=== PATIENT | female | born 1960 | race Caucasian/White ===

== ENCOUNTER 2019-05-21 22:33 | Inpatient (IN) | payer MEDICARE ==
[2019-05-22] MEDS ORDERED: ASPIRIN 325 MG TAB ONE (00:31)
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
[2019-05-22 00:41] LABS: Absolute Lymphocytes (CBC) 1.7 K/uL (0.7-4.9); Basophils % 0.4 % (0-1.3); Hematocrit 34.9 % (36.0-45.0); Lymphocytes % 16.4 % (15.3-44.8); MPV 8.5 fL (7.6-11.3); RBC Red Blood Cell Count 3.97 M/uL (3.86-4.86)
[2019-05-22 00:42] LABS: Protime INR 0.99
[2019-05-22 01:27] LABS: Urine Bacteria 20-50 /HPF (<20); Urine Culture Reflex Order REFLEXED; Urine RBC NONE SEEN /HPF (NONE SEEN)
[2019-05-22 01:52] LABS: ALT/SGPT 31 U/L (12-78); AST/SGOT 12 U/L (15-37); Albumin 3.8 g/dL (3.4-5.0); Alkaline Phosphatase 100 U/L (45-117); BUN Blood Urea Nitrogen 28 mg/dL (7-18); Bicarbonate 26 mmol/L (21-32); Bilirubin Direct 0.1 mg/dL (0-0.2); Bilirubin Total 0.4 mg/dL (0.2-1.0); Glucose Level 236 mg/dL (74-106); Magnesium 1.9 mg/dL (1.8-2.4); NT PRO-BNP 807 pg/mL (<125); Potassium 4.1 mmol/L (3.5-5.1); Sodium Level 139 mmol/L (136-145); Troponin (Emerg Dept Use Only) < 0.02 ng/mL (0.0-0.045)
[2019-05-22 04:36] LABS: Urine Blood TRACE (NEG); Urine Glucose NEGATIVE (NEG); Urine Protein NEGATIVE (NEG); Urine Specific Gravity 1.015 (1.005-1.030)
[2019-05-22] MEDS: NA CHLORIDE 0.9% 1,000 ML IV SCH ×3 (04:41→21:22)
[2019-05-22 05:47] VITALS: BMI 30.2
--- NOTE | 2019-05-22 08:01 | RAD REPORT ---
EXAM DESCRIPTION: Tarsha Single View05/21/2019 11:48 pm CLINICAL HISTORY: Stroke symptoms COMPARISON: none FINDINGS: The lungs appear clear of acute infiltrate. The heart appears borderline enlarged IMPRESSION: No acute abnormalities displayed
[2019-05-22] MEDS ORDERED: GLUCAGON 1 MG/VIAL IM PRN (09:50)
[2019-05-22] MEDS ORDERED: D50W 25 GM/50 ML SYRINGE/VIAL IV PRN (09:50)
--- NOTE | 2019-05-22 10:11 | RAD REPORT ---
EXAM DESCRIPTION: RAD - C Spine Ap/Lat - 05/22/2019 10:03 am CLINICAL HISTORY: Rule out metal FINDINGS: No fracture or dislocation is seen. Anterior fusion involves C5 and C6 Mild spondylosis A radiopaque foreign body is not visualized
--- NOTE | 2019-05-22 10:23 | RAD REPORT ---
EXAM DESCRIPTION: RAD - Sinuses Kauffman Only - 05/22/2019 10:12 am CLINICAL HISTORY: MRI clearance, rule out metallic foreign body COMPARISON: None. TECHNIQUE: PA and AP Kauffman views obtained FINDINGS: No metallic foreign bodies are present. Metal dental work is present not a contraindicatio n for MRI imaging. No acute finding in the paranasal sinuses. No acute bone finding. IMPRESSION: No metallic foreign bodies.
[2019-05-22] MEDS: INSULIN -REGULAR HUMAN 50 UNIT/0.5 ML ML SQ SCH ×3 (11:30→21:00)
[2019-05-22] MEDS: ASPIRIN EC 81 MG TAB PO SCH (12:00)
--- NOTE | 2019-05-22 12:10 | RAD REPORT ---
EXAM DESCRIPTION: MRI - MRA Head Wo Cont - 05/22/2019 11:47 am CLINICAL HISTORY: Right hand numbness COMPARISON: None. TECHNIQUE: Magnetic resonance angiogram was performed. 3D MIPS reconstruction performed FINDINGS: Short segment areas of narrowing involve the A2 segment of the left anterior cerebral gerry ry and proximal left middle cerebral artery. Internal cerebral, basilar and posterior cerebral arteries are unremarkable An aneurysm is not displayed. IMPRESSION: Short segment areas of narrowing involving the A2 segment of the left anterior cerebral artery, proximal left middle and proximal right middle cerebral arteries
--- NOTE | 2019-05-22 12:14 | RAD REPORT ---
EXAM DESCRIPTION: MRI - MRA Neck W/Wo Cont - 05/22/2019 11:47 am CLINICAL HISTORY: Right hand numbness COMPARISON: None. TECHNIQUE: Magnetic resonance angiogram of the neck was performed. 18 cc MultiHance was administered intravenously. 3D MIPS reconstruction performed FINDINGS: No contrast is visualized within the proximal left subclavian artery. Mild plaque is present within common carotid, internal carotid and external carotid arteries. The vertebral arteries are codominant without visualization of an abnormality. IMPRESSION: No contrast is seen within the proximal left subclavian artery. It is uncertain if this is secondary to occlusion or technical factors. CT angiogram of the neck is recommended for further e valuation Mild plaque within the carotid arteries NASCET criteria used. Mild 0-49% stenosis Moderate 50-69% stenosis Severe 70-99% stenosis
--- NOTE | 2019-05-22 12:14 | RAD REPORT ---
EXAM DESCRIPTION: MRI - Brain W/Wo Cont - 05/22/2019 11:47 am CLINICAL HISTORY: Right hand numbness COMPARISON: May 21, [address] TECHNIQUE: Axial, sagittal, and coronal magnetic images of the brain were obtained. 20 cc MultiHance administered intravenously FINDINGS: 5 millimeter area of increased signal within the left frontal lobe may represent a small o ld infarction The ventricles are normal in caliber. Diffusion-weighted/ ADC mapping sequences demonstrate abnormal signal compatible with acute infarctio n within the left basal ganglia measuring 1 centimeter. Abnormal vessel within the right cerebellum compatible with a venous angioma. No surrounding abnormal ity An extra-axial fluid collection is not noted. Fluid within the sinuses/mastoids is not seen IMPRESSION: 1 centimeter acute infarction left basal ganglia Dr Lizarraga was notified
--- NOTE | 2019-05-22 14:07 | EKG ---
Test Date: 2019-05-21 Test Time: 22:53:14 Yoker Machine Operator: MONICA MEASUREMENT RESULTS: Intervals: Rate: 84 CO: 148 QRSD: 78 QT: 388 QTc: 458 [place]: P: 45 CO: 148 QRS: 65 T: 53 INTERPRETIVE STATEMENTS: Normal sinus rhythm Normal ECG No previous ECG available for comparison Electronically Signed On 05-22-19 14:06:04 COAL CAGER by Eugene Hopkins
--- NOTE | 2019-05-22 15:11 | RAD REPORT ---
EXAM DESCRIPTION: CT - Neck Angio - 05/22/2019 2:39 pm CLINICAL HISTORY: blockageabnormal MRA neck examination, possible proximal left subclavian occlusion . TECHNIQUE: During dynamic enhancement using nonionic IV contrast, axial 2 mm thick images of the nec k were obtained. Sagittal and axial reconstruction images were generated using MIP technique and revi ewed. All CT scans are performed using dose optimization technique as appropriate and may include automated exposure control or mA/KV adjustment according to patient size. COMPARISON: MRA neck same date FINDINGS: No aneurysm or vascular malformation identified. No carotid or vertebral dissection. Aortic arch is 4 vessel configuration. The left vertebral artery arises as a separate origin off of t he aortic arch. The patient was injected for the examination in the left upper extremity. This create s dense contrast in the left-side venous system. This does create some artifact near the left subclav dav artery origin. There is estimated 50% narrowing of the left vertebral artery at its origin with a short segment high-grade bandlike stenosis approximately 1 centimeter from the origin. The remainder of the left subclavian artery shows normal contrast opacification to the axilla. The opacification p attern would indicate stenosis but not occlusion. IMPRESSION: Focal narrowing estimated at 50% at the origin of the left subclavian artery from the a ortic arch. Approximately 1 centimeter from the origin there is a short segment bandlike stenosis. Th is is the correlate to the absent signal on MRA imaging. The opacification pattern of the left subclavian artery which would indicate that the proximal subcla vian findings are stenoses rather than occlusion. The left vertebral artery arises from the aortic arch and therefore there is no subclavian steal phen joenon.
[2019-05-22] MEDS ORDERED: ENOXAPARIN 40 MG/0.4 ML SQ ONE (21:00)
[2019-05-22] MEDS: HOME MED 1 EA UNK (Brimonidine Tartrate/Timolol [Combigan 0.2%-0.5% Eye Drops] 1 DROP) EACH EYE SCH (21:00)
[2019-05-22] MEDS: ATORVASTATIN 40 MG TAB PO SCH (21:24)
--- NOTE | 2019-05-23 00:18 | CON ---
Reason For Consultation: Stroke. History Of Present Illness: Ms. Smith is a 58-year-old right-handed patient with untreate d diabetes mellitus and history of recurrent hypertension, also untreated, who developed sudden onset right arm and face tingling, paresthesias with mild weakness around 7:30 last night after she ate in a restaurant. She was at [facility]. She went home and the symptoms did not improve. She noted some problems with her right leg. She called medical personnel, who is a friend of hers, who told her justin elliott will be okay. She reached out to another friend and was told she needs to go to the emergenc y room. She came to [facility], where her evaluation was found to have an NIH score of zero as she did not at that point had any obvious deficits on their exam. She had a head CT scan that sh owed no acute ischemic or hemorrhagic change. She was given aspirin and she actually said she did ta ke a small aspirin at home and she was given another 160 mg aspirin in the emergency room, and again head CT scan negative for acute ischemic or hemorrhagic change. She was admitted for stroke workup. Following day, that is today, brain MRI identified a 1 cm acute infarct in the left subcortical fron steve region close to the basal ganglia. In addition, MRA of her brain showed short segment narrowing in the A2 segment of the left anterior cerebral artery, the proximal left middle, and proximal right middle cerebral arteries. Imaging of the vasculature in her neck including a CT angiogram showed 50% stenosis in the left subclavian artery from the aortic arch, approximately 1 cm from the arch and th ere was a short segment of band-like stenosis and this is noted also on MRA. There is opacification of the left subclavian artery, which would indicate proximal left subclavian stenosis rather than occ lusion. The left vertebral artery arises from the aortic arch and there is no subclavian steal pheno luz maria identified. Her electrocardiogram showed sinus rhythm with a normal study and the chest x-ray showed no acute abnormalities. Past Medical History: As indicated in addition to glaucoma and reported broken neck. Surgical History: Cervical surgery and finger surgery. Allergies: CODEINE AND MILK. Medications: At home, Combigan ophthalmic drops 1 every 12 hours and prednisone ophthalmic drops as needed. Social History: She smoked remotely. No recent smoking. She does report lots of stressful situatio ns and actually recalled a situation, where she ordered bagels from [employer] actually shortly bef ore her stroke occurred, couple of days, and she was given not the wheat bread, which she had ordered and she was very upset about that, and she denied any alcohol consumption and no recent cigarette sm oking. No illegal drugs. She is taking care of 2 young children and is somewhat stressed about that as well. Family History: Noncontributory. Review of Systems: She denies any recent fevers or chills, nausea, vomiting, myalgias, arthralgias, headache, weight rené nge, rash. She reports some stress and anxiety perhaps more than usual according to her. Physical Examination: Vital Signs: Blood pressure 171/74, pulse 80, respiratory rate 18, temperature 97.2, oxygen saturati on 98% on room air. Weight 165 pounds, height 5 feet 2 inches, BMI 30.2. General: Ms. Smith is resting in bed. She is in no significant distress. HEENT: She is normocephalic, atraumatic. Sclerae anicteric. Oropharynx is pink and moist. Neck: Supple. Chest: Clear. Heart: Regular. Abdomen: Soft. Extremities: No clubbing, cyanosis, or edema. Neurological: Alert and oriented to situation, place, and person. Follows all commands appropriatel y. On cranial nerves 2 through 12, there is no focal deficits that can be determined. She has full visual yo to confrontation. Pupils are round, react to light and accommodation. Her extraocular muscles are intact. Facial sensation intact to light touch, pinprick, temperature V1, V2, and V3 bi laterally. Her face is symmetric with equal excursions and smiling. Hearing intact to finger rub bi laterally. Tongue and palate are in the midline. Motor examination, she has 5/5 strength in shoulde r shrug bilaterally; and the upper extremity proximally and distally, she has 5.5. In the lower extr emities, proximally and distally 5/5. Sensation is intact in the upper and lower extremities, althou gh she does state very subtle right leg and right arm decrease to temperature compared to the left si de, otherwise intact coordination, and reflexes 2+ and symmetric. Gait, slight tendency to drift to the right. Note, NIH Stroke Scale was 2 based on her right upper and right lower sensory decrease. Laboratory Studies: Complete blood count with differential shows slightly low hemoglobin of 11.9, he matocrit of 34.9, neutrophils of 77. INR 0.99. Chemistries show sodium 134, potassium 4.1, chloride 106, carbon dioxide 26, BUN 28, creatinine 0.77, glucose ranged from 150 to 239, AST is 12, ALT 31, beta-natriuretic peptide 807. Lipid panel is pending. Urinalysis shows 20 to 50 bacteria, 5 to 10 s quamous epithelial cells, 10 to 20 white blood cells, 1+ esterase, trace blood, 1+ ketones; and urine cultures are pending. Assessment: Ms. Smith is a 58-year-old patient with a left frontal subcortical stroke producing rig ht arm more than face and leg dysesthesia with tingling and weakness. She has stroke risk factors of untreated hypertension, diabetes mellitus, and she has large-vessel cerebral disease. She has been more stressed recently and she has a remote history of smoking. Her neurological deficits are very s light at this point, and she was not a candidate for tPA as she had no documented deficits at the maricel e of evaluation in the emergency room. Plan: 1.Aspirin 81 mg daily. 2.Folate 1 mg daily. 3.Aggressive management of diabetes mellitus and attempt to keep her blood sugars in fasting less th an 110. 4.For next 3-5 days, permissive hypertension. We will hold antihypertensive medications if systolic blood pressure is less than 180. Once she is out of the acute stroke phase window within the next w qawalangin, gradually lower blood pressures to normal range around systolic of 120. 5.She will be started on high dose statin, which is already done earlier today. In addition, folic acid 1 mg daily. In addition, the patient was told that the importance of regular exercise at least 30 minutes of brisk activity with heart rate elevations that she can carry on with her con versation 30 minutes daily. 6.8-10 glasses of water daily. 7.Decreased intake of sugary, caffeinated, carbonated drinks. 8.Patient was instructed on importance of reducing the glycemic index in her foods. 9.After discharge, she may follow up in Dr. Montano's clinic in 1 month. SHAUNA/ROMAINE Voice ID: [id number] Report ID: [id number]
[2019-05-23 04:37] LABS: CKMB Creatine Kinase MB < 1.0 ng/mL (0.3-3.6); Creatine Phosphokinase 37 U/L (26-192); HDL Cholesterol 45 mg/dL (40-60); LDL Cholesterol, Calculated 96 (<130); Troponin I < 0.02 ng/mL (0.0-0.045)
[2019-05-23] MEDS: INSULIN -REGULAR HUMAN 50 UNIT/0.5 ML ML SQ SCH ×4 (07:30→21:00)
[2019-05-23 07:54] VITALS: O2SAT 98
[2019-05-23] MEDS: ENOXAPARIN 40 MG/0.4 ML SQ SCH (08:05)
[2019-05-23] MEDS: CLOPIDOGREL 75 MG TABLET PO SCH (08:05)
[2019-05-23] MEDS: ASPIRIN EC 81 MG TAB PO SCH (08:05)
[2019-05-23] MEDS: HOME MED 1 EA UNK (Brimonidine Tartrate/Timolol [Combigan 0.2%-0.5% Eye Drops] 1 DROP) EACH EYE SCH ×2 (08:06→21:00)
--- NOTE | 2019-05-23 13:30 | RAD REPORT ---
EXAM DESCRIPTION: US - CP - 05/23/2019 1:01 pm CLINICAL HISTORY: Stroke symptoms COMPARISON: Neck Angio dated 05/22/2019 TECHNIQUE: Real-time sonographic evaluation of bilateral carotid and vertebral systems was performed . Crane scale and Doppler interrogation were performed with waveform tracing bilaterally. FINDINGS: Normal high resistance waveforms are noted in both external carotid arteries. The common c arotid arteries and internal carotid arteries show normal low resistance waveforms. Scattered calcified and noncalcified plaquing changes are present. Mild narrowing is present at the l eft bulb ICA junction. This does not exceed 50%. ICA/CCA ratio use do not indicate significant stenos is. Antegrade flow seen in both vertebral arteries. Velocity values and ratios were recorded and are retained in the patient's imaging records. IMPRESSION: Calcified and noncalcified plaquing changes are present. No hemodynamically significant stenosis seen at this time.
--- NOTE | 2019-05-23 13:43 | PN ---
Date of Progress Note: 05/23/2019 Patient continues to improve both clinically and symptomatically. Her face is completely clear. Occ asionally, she has some funny feeling in her hands still when she walks, which she is doing quite wel l. Her blood pressure and blood sugars have also improved considerably, which obviously places signi ficant part in her underlying cardiovascular situation. Also, I think she is under extreme stress, h as insomnia and an attempt to correct this with the use of Elavil. She has not had her echo or Doppl er of her neck carotids and therefore, I think it is curry that she stays overnight to complete these tests and continue with control of her extraneous factors of hypertension and diabetes. She will be discharged after HR/MODL Voice ID: [id number] Report ID: [id number]
[2019-05-23] MEDS ORDERED: AMITRIPTYLINE 25 MG TAB PO SCH (21:00)
[2019-05-23] MEDS: ATORVASTATIN 40 MG TAB PO SCH (21:01)
--- NOTE | 2019-05-23 21:58 | HP ---
Date of Admission: 05/23/2019 Chief Complaint: Numbness of the hand and face. History Of Present Illness: The patient presented to the emergency room with the above outlined symp toms. She stated she just finished eating when she noticed some numbness of her hand. She felt like it was asleep, has no other symptoms. She went home and then she noticed some numbness around the l ips and lower portion of her face and that is when she decided to come to the ER. Past History: Patient has had borderline hypertension and blood sugars, which she has attempted to c ontrol as of late. With diet and exercise she says has been somewhat successful. Family History: The patient's mother of a CVA in her 80s. Her father had CAD and an MO in his 60s. Social History: Some caffeine. Nonsmoker over the last couple of months. Physical Examination: General: Patient is a mildly obese middle-aged female, in no acute distress. Vital Signs: Stable vital signs. Head and Neck: Normocephalic. Pupils equal, reactive to light and accommodation. Fundi negative. Trachea midline. Thyroid not palpable. ENT: Negative. Chest: Clear to P and A. Cardiovascular: PMI midclavicular line. Heart: Sounds normal. Peripheral pulses are present and equal bilaterally. Abdomen: No organomegaly. Bowel sounds present. Extremities: Good tone and movement bilaterally. Reflexes physiologic. At the time of examination, no discernible weakness in her arms. She had good sensation, same is effaced. She did report that by the time she got to the ER, her symptoms were basically improved. Rectal/pelvic: Deferred. Impression: Transient ischemic attack/cerebrovascular accident; hypertension, controlled; non-insuli n dependent diabetes mellitus, variable control. Plan: Patient will be admitted, undergo a stroke protocol. An MRI will be obtained. She had a nega tive CT and depending on the results further treatment will be instituted. In the meantime, she is p laced on aspirin and statin. HR/MODL Voice ID: [id number]
[2019-05-24] MEDS: INSULIN -REGULAR HUMAN 50 UNIT/0.5 ML ML SQ SCH ×2 (07:30→11:30)
[2019-05-24] MEDS: HOME MED 1 EA UNK (Brimonidine Tartrate/Timolol [Combigan 0.2%-0.5% Eye Drops] 1 DROP) EACH EYE SCH (09:00)
[2019-05-24] MEDS: ASPIRIN EC 81 MG TAB PO SCH (09:41)
[2019-05-24] MEDS: CLOPIDOGREL 75 MG TABLET PO SCH (09:41)
[2019-05-24] MEDS: ENOXAPARIN 40 MG/0.4 ML SQ SCH (09:41)
[2019-05-24 11:40] VITALS: BP 150/71; TEMP 97
--- NOTE | 2019-05-24 12:21 | RAD REPORT ---
EXAM DESCRIPTION: CT - Head Brain Wo Cont - 05/22/2019 5:04 am CLINICAL HISTORY: Intermittent numbness in the right hand.. COMPARISON: None. TECHNIQUE: CT scan of the brain without IV contrast. This exam was performed according to our depa rtmental dose-optimization program, which includes automated exposure control, adjustment of the mA a nd/or kV according to patient size and/or use of iterative reconstruction technique. FINDINGS: The ventricles, cisterns, and sulci are age-appropriate. No evidence of acute infarction, intracranial hemorrhage, extra-axial fluid collection, or midline shift. No air-fluid levels are seen in the paranasal sinuses to suggest acute sinusitis. No depressed skull fracture. IMPRESSION: No acute intracranial findings are seen. Please note that MRI is more sensitive for the evaluation of early infarction, and may be performed i f there is high clinical concern. Electronically signed by: Michele Delarosa MD 05/22/2019 12:06 AM PARK KEEPER Due to temporary technical issues with the PACS/Fluency reporting system, reports are being signed by the in house radiologist as a courtesy to ensure prompt reporting. The interpreting radiologist is f ully responsible for the content of the report.
--- NOTE | 2019-05-24 13:12 | ECHO ---
HEIGHT: 5 ft 2 in WEIGHT: 165 lb 0 oz DATE OF STUDY: 05/24/[address]: Nicolas Rodriguez MD 2-DIMENSIONAL: YES M.MODE: YES DOPPLER: YES COLOR FLOW: YES TDS: NO PORTABLE: NO DEFINITY: NO BUBBLE STUDY: NO DIAGNOSIS: STROKE CARDIAC HISTORY: CATHERIZATION: NO SURGERY: NO PROSTHETIC VALVE: NO PACEMAKER: NO MEASUREMENTS (cm) DIASTOLIC (NORMALS) SYSTOLIC (NORMALS) IVSd 0.8 (0.6-1.2) LA Diam 3.7 (1.9-4.0) LVEF 69% LVIDd 4.5 (3.5-5.7) LVIDs 2.8 (2.0-3.5) %FS 38% LVPWd 0.8 (0.6-1.2) Ao Diam 2.3 (2.0-3.7) 2 DIMENSIONAL ASSESSMENT: RIGHT ATRIUM: NORMAL LEFT ATRIUM: NORMAL RIGHT VENTRICLE: NORMAL LEFT VENTRICLE: NORMAL TRICUSPID VALVE: NORMAL MITRAL VALVE: NORMAL PULMONIC VALVE: NORMAL AORTIC VALVE: NORMAL PERICARDIAL EFFUSION: NONE AORTIC ROOT: NORMAL LEFT VENTRICULAR WALL MOTION: NORMAL. DOPPLER/COLOR FLOW: MILD TRICUSPID REGURGITATION. NORMAL RIGHT VENTRICULAR SYSTOLIC PRESSURE. COMMENTS: NORMAL 2D ECHO. MILD TRICUSPID REGURGITATION. TECHNOLOGIST: GUDELIA PUGA
--- NOTE | 2019-05-24 18:13 | PN ---
Date of Progress Note: 05/24/2019 Patient feels much better today. She is up walking. No problems, asymptomatic. Echo was normal. S he will be discharged on baby aspirin, Lipitor 40, and 1 mg folic acid. She will follow up with Neur ology in 1 month and me in 2 weeks. Patient's blood sugar is stable, obviously dietary control and a ctivity level is significant and blood pressure has also stabilized, at the upper limits of normal, a nd this will be monitored at home as well. HR/MODL Voice ID: [id number] Report ID: [id number]
--- NOTE | 2019-05-25 09:09 | PN ---
Date of Progress Note: 05/22/2019 Subjective: By tonight, the patient states she feels considerably better. Every once in a while she does feel some peculiar feelings in her hand, her face is normal. She is seen by Neurology. Medica tions were given appropriately and patient probably can be discharged in the a.m. HR/MODL Voice ID: [id number] Report ID: [id number]
== END 2019-05-24 15:15 | disposition home or self-care (01) | DRG 65 ==
LOC: ER 22:33 → ERHOLD 05-22 01:08 → 4TH 05-22 02:47 → OBSVTOIN 05-23 14:05
PROVIDERS: ADMIT Family Medicine; ATTEND Family Medicine
DX: I63.9 Cerebral infarction, unspecified (principal); G81.91 Hemiplegia, unspecified affecting right dominant side; I10 Essential (primary) hypertension; E10.9 Type 1 diabetes mellitus without complications; Z91.040 Latex allergy status; Z91.011 Allergy to milk products
CPT/HCPCS: 36415; 70210; 70450; 70498; 70544; 70549; 70553; 71045; 72040; 80048; 80061; 80076; 81003; 81015; 82550; 82553; 82947; 83036; 83735; 83880; 84484; 85025; 85610; 87086; 87088; 93005; 93306; 93880; 97161; 99285; A9577; G0378; J1650; J7030; Q9967

== ENCOUNTER 2020-12-04 15:22 | Emergency (ER) | payer MEDICARE, OTHER ==
--- NOTE | 2020-12-04 16:35 | RAD REPORT ---
EXAM DESCRIPTION: CT - Head Brain Wo Cont - 12/04/2020 3:59 pm CLINICAL HISTORY: HEADACHE COMPARISON: CT head April 2019 TECHNIQUE: Axial 5 mm thick images of the head were obtained without IV contrast. All CT scans are performed using dose optimization technique as appropriate and may include automated exposure control or mA/KV adjustment according to patient size. FINDINGS: No intracranial hemorrhage, mass, edema or shift of mid-line structures. No acute infarcti on changes seen. No abnormal extra-axial fluid collections. Ventricles are normal. No significant atr ophy or chronic ischemic change. Mastoid air cells and visualized portions of the paranasal sinuses are clear. No acute bony findings. IMPRESSION: Negative non-contrast CT head examination. No significant change comparison.
--- NOTE | 2020-12-04 16:48 | RAD REPORT ---
EXAM DESCRIPTION: RAD - Chest Single View - 12/04/2020 4:37 pm CLINICAL HISTORY: paresthesia COMPARISON: April 2019 TECHNIQUE: AP portable chest image was obtained 12/04/2020 4:37 pm . FINDINGS: Patient has a prominent interstitial pattern accentuated by portable technique and body montalvo bitus affects. Interstitial pattern is slightly increased in each base and correlation is needed with any edema or infiltrate exam findings. Significant cardiomegaly is present with mild vascular engorg ement. No measurable pleural effusion and no pneumothorax. No acute bony abnormality seen. No acute aortic findings suspected. IMPRESSION: Patient has cardiomegaly and vascular engorgement slightly increased from comparison. Deloris ng base interstitial pattern is also slightly increased. Mild CHF/volume overload is suspected and needs correlation with clinical presentation.
[2020-12-04 16:51] LABS: Absolute Lymphocytes (CBC) 1.3 K/uL (0.7-4.9); Basophils % 0.8 % (0-1.3); Hematocrit 36.2 % (36.0-45.0); Lymphocytes % 17.7 % (15.3-44.8); MPV 7.9 fL (7.6-11.3); RBC Red Blood Cell Count 4.22 M/uL (3.86-4.86)
[2020-12-04 17:00] LABS: Protime INR 1.01
[2020-12-04 17:14] LABS: ALT/SGPT 25 U/L (12-78); AST/SGOT 18 U/L (15-37); Albumin 3.4 g/dL (3.4-5.0); Alkaline Phosphatase 136 U/L (45-117); BUN Blood Urea Nitrogen 16 mg/dL (7-18); Bicarbonate 25 mmol/L (21-32); Bilirubin Direct 0.2 mg/dL (0-0.2); Bilirubin Total 0.6 mg/dL (0.2-1.0); Glucose Level 114 mg/dL (74-106); Magnesium 2.1 mg/dL (1.8-2.4); NT PRO-BNP 4742 pg/mL (<125); Potassium 4.1 mmol/L (3.5-5.1); Protein, Total 7.1 g/dL (6.4-8.2); Sodium Level 140 mmol/L (136-145); Troponin (Emerg Dept Use Only) < 0.02 ng/mL (0.0-0.045)
[2020-12-04] MEDS ORDERED: LORAZEPAM 1 MG TABLET ONE (17:44)
--- NOTE | 2020-12-04 18:40 | RAD REPORT ---
EXAM DESCRIPTION: MRI - Brain Wo Cont - 12/04/2020 6:26 pm CLINICAL HISTORY: paresthesia, left-sided weakness, slurred speech, history of TIA COMPARISON: Brain W/Wo Cont dated 05/22/2019; Head Brain Wo Cont dated 12/04/2020 TECHNIQUE: Sagittal T1-weighted images were obtained along with axial PD, heavily T2-weighted and T2 -FLAIR images. Axial DWI and ADC mapping sequences were also obtained along with coronal heavily T2-w eighted images. FINDINGS: No intracranial hemorrhage, mass or acute infarction. There is no edema or shift of midlin e structures. No extra-axial fluid collections. Crane-matter/white matter junction is preserved. Signa l voids are seen as a normal finding in the major intracranial vessels. Minimal chronic ischemic changes are present. There is minimal remnant signal abnormality from the 20 19 CVA. No significant atrophy present. Ventricles are normal size. Mastoid air cells and paranasal sinuses are clear. Incidental note is made of a venous angioma in the right cerebellum. This is not of acute clinical si gnificance. No evidence for adjacent cavernoma or old hemorrhage. IMPRESSION: No acute infarction change. No acute intracranial finding.
[2020-12-04] MEDS ORDERED: ACETAMINOPHEN 500 MG TAB ONE (18:55)
--- NOTE | 2020-12-04 19:15 | ER ---
Nurse's Notes [facility] Name: Mariluz Smith Age: 60 yrs Sex: Female : 1960 Arrival Date: 12/04/2020 Time: 15:27 Bed 25 Private MD: Diagnosis: Essential (primary) hypertension;Paresthesia of skin;Headache Presentation: 12/04 15:47 Chief complaint:. vg1 15:47 Chief complaint: EMS states: About an hour ago pt was experiencing numbness and vg1 tingling to left side of face and arm; c/o headache to right side of head; has a hx of TIA. Coronavirus screen: Client denies travel out of the [place] in the last 14 days. Ebola Screen: Patient negative for fever greater than or equal to 101.5 degrees Fahrenheit, and additional compatible Ebola Virus Disease symptoms. Initial Sepsis Screen: Does the patient meet any 2 criteria? No. Patient's initial sepsis screen is negative. Does the patient have a suspected source of infection? No. Patient's initial sepsis screen is negative. Risk Assessment: Do you want to hurt yourself or someone else? Patient reports no desire to harm self or others. Onset of symptoms. 15:47 Method Of Arrival: EMS: [facility] vg1 15:47 Acuity: RACHANA 3 vg1 Triage Assessment: 15:54 General: Appears in no apparent distress. comfortable, Behavior is calm, cooperative. vg1 Pain: Complains of pain in head Pain currently is 2 out of 10 on a pain scale. Pain began 1 hour ago. EENT: No signs and/or symptoms were reported regarding the EENT system. Neuro: Level of Consciousness is awake, alert, obeys commands, Oriented to person, place, time, situation, Tiller Man are equal bilaterally Moves all extremities. Speech is normal, Facial symmetry appears normal, Intact. Cardiovascular: Patient's skin is warm and dry. Respiratory: Airway is patent Respiratory effort is even, unlabored. GI: Patient currently denies diarrhea, nausea, vomiting. : No signs and/or symptoms were reported regarding the genitourinary system. Derm: Skin is intact, is healthy with good turgor. Musculoskeletal: Circulation, motion, and sensation intact. Historical: - Allergies: 15:52 Codeine; vg1 15:52 Milk; vg1 15:54 Latex, Natural Rubber; vg1 - Home Meds: 15:52 Combigan 0.2-0.5 % ophthalmic drop 1 drop every 12 hours [Active]; Prednisolone Opht vg1 [Active]; - PMHx: 15:52 Broken Neck; Glaucoma; TIA; vg1 - Immunization history:: Adult Immunizations up to date. - Social history:: Smoking status: Patient denies any tobacco usage or history of. Screenin:55 Abuse screen: Denies threats or abuse. Nutritional screening: No deficits noted. vg1 Tuberculosis screening: No symptoms or risk factors identified. Fall Risk No fall in past 12 months (0 pts). No secondary diagnosis (0 pts). IV access (20 points). Ambulatory Aid- None/Bed Rest/Nurse Assist (0 pts). Gait- Normal/Bed Rest/Wheelchair (0 pts) Mental Status- Oriented to own ability (0 pts). Total Kelly Fall Scale indicates No Risk (0-24 pts). Assessment: 15:50 Reassessment: SEE TRIAGE. vg1 17:44 Reassessment: Patient appears in no apparent distress at this time. Patient and/or vg1 family updated on plan of care and expected duration. Pain level reassessed. Patient is alert, oriented x 3, equal unlabored respirations, skin warm/dry/pink. Pt states headache 7/10, provider notified. 18:49 Reassessment: Patient appears in no apparent distress at this time. Patient and/or vg1 family updated on plan of care and expected duration. Pain level reassessed. Patient is alert, oriented x 3, equal unlabored respirations, skin warm/dry/pink. Vital Signs: 15:47 BP 225 / 92; Pulse 86; Resp 18; Temp 98.0; Pulse Ox 98% ; Weight 82.55 kg; Height 5 ft. vg1 2 in. (157.48 cm); Pain 2/10; 16:41 BP 215 / 89; Pulse 87; Resp 20; Pulse Ox 98% on R/A; vg1 17:30 BP 178 / 84; Pulse 96; Resp 20; Pulse Ox 98% on R/A; vg1 18:49 BP 216 / 90; Pulse 88; Resp 20; Pulse Ox 97% on R/A; vg1 19:03 BP 183 / 91; Pulse 88; Resp 18; Pulse Ox 98% on R/A; vg1 15:47 Body Mass Index 33.29 (82.55 kg, 157.48 cm) vg1 ED Course: 15:27 Patient arrived in ED. iw 15:45 Shady Mejia NP is PHCP. pm1 15:45 Jose Salazar MD is Attending Physician. pm1 15:46 Melody Hernandez RN is Primary Nurse. vg1 15:52 Triage completed. vg1 15:55 Patient has correct armband on for positive identification. Bed in low position. Call vg1 light in reach. Side rails up X 1. 15:59 CT Head Brain wo Cont In Process Unspecified. EDMS 16:37 XRAY Chest (1 view) In Process Unspecified. EDMS 16:39 Initial lab(s) drawn, by me, sent to lab. Inserted saline lock: 20 gauge in right vg1 antecubital area, using aseptic technique. Blood collected. 16:41 Arm band placed on. vg1 18:25 MRI - Brain Wo Cont In Process Unspecified. EDMS 19:32 No provider procedures requiring assistance completed. IV discontinued, intact, vg1 bleeding controlled, No redness/swelling at site. Pressure dressing applied. Administered Medications: 17:23 Drug: Ativan (LORazepam) 1 mg Route: PO; vg1 18:41 Follow up: Response: No adverse reaction; Other; Pt states 'feeling more at ease' vg1 18:41 Drug: Tylenol 1000 mg Route: PO; vg1 19:32 Follow up: Response: No adverse reaction; Marked relief of symptoms vg1 19:08 Drug: Lopressor (metoprolol TARTRATE)) 25 mg Route: PO; vg1 19:32 Follow up: Response: Medication administered at discharge. vg1 Intake: Outcome: 19:15 Discharge ordered by . pm1 19:32 Discharged to home ambulatory, with family. vg1 19:32 Condition: stable 19:32 Discharge instructions given to patient, Instructed on discharge instructions, follow up and referral plans. medication usage, Demonstrated understanding of instructions, follow-up care, medications, Prescriptions given X 1. 19:32 Patient left the ED. vg1 Signatures: Dispatcher [employer] EDMS Amira Frias RN RN Shady Mejia NP ASSET PROTECTION OFFICER pm1 Melody Hernandez RN RN vg1
--- NOTE | 2020-12-04 19:16 | EDPHYS ---
Physician Documentation [facility] Name: Mariluz Smith Age: 60 yrs Sex: Female : 1960 Arrival Date: 12/04/2020 Time: 15:27 Bed 25 Private MD: ED Physician Jose Salazar HPI: 12/03 15:56 This 60 yrs old Female presents to ER via EMS with complaints of paresthesia pm1 and headache. 15:56 The patient presents to the emergency department with paresthesias of the left upper pm1 extremity, right upper extremity. Onset: The symptoms/episode began/occurred today, 1 hour(s) ago. Context: occurred at home. Associated signs and symptoms: Pertinent positives: Right sided headache and neck pain. Severity of symptoms: in the emergency department the symptoms have improved. Patient's baseline: Neuro: alert and fully oriented, Motor: no deficits, Ambulation: walks without assistance, Speech: normal. The patient has been recently seen by a physician: the patient's primary care provider, Dr. Lizarraga yesterday, with different complaint(s). Historical: - Allergies: 12/04 15:52 Codeine; vg1 15:52 Milk; vg1 15:54 Latex, Natural Rubber; vg1 - Home Meds: 15:52 Combigan 0.2-0.5 % ophthalmic drop 1 drop every 12 hours [Active]; Prednisolone Opht vg1 [Active]; - PMHx: 15:52 Broken Neck; Glaucoma; TIA; vg1 - Immunization history:: Adult Immunizations up to date. - Social history:: Smoking status: Patient denies any tobacco usage or history of. ROS: 12/03 15:56 Constitutional: Negative for fever, chills, and weight loss, Eyes: Negative for injury, pm1 pain, redness, and discharge, ENT: Negative for injury, pain, and discharge. Cardiovascular: Negative for chest pain, palpitations, and edema, Respiratory: Negative for shortness of breath, cough, wheezing, and pleuritic chest pain, Abdomen/GI: Negative for abdominal pain, nausea, vomiting, diarrhea, and constipation, Back: Negative for injury and pain, MS/Extremity: Negative for injury and deformity, Skin: Negative for injury, rash, and discoloration. Neck: Positive for right sided neck pain. Neuro: Positive for headache, numbness to finger tips of both hands. 15:56 All other systems are negative. pm1 Exam: 15:56 Constitutional: This is a well developed, well nourished patient who is awake, alert, pm1 and in no acute distress. Head/Face: Normocephalic, atraumatic. Eyes: Pupils equal round and reactive to light, extra-ocular motions intact. Lids and lashes normal. Conjunctiva and sclera are non-icteric and not injected. Cornea within normal limits. Periorbital areas with no swelling, redness, or edema. ENT: Nares patent. No nasal discharge, no septal abnormalities noted. Tympanic membranes are normal and external auditory canals are clear. Oropharynx with no redness, swelling, or masses, exudates, or evidence of obstruction, uvula midline. Mucous membranes moist. Neck: Trachea midline, no thyromegaly or masses palpated, and no cervical lymphadenopathy. Supple, full range of motion without nuchal rigidity, or vertebral point tenderness. No Meningismus. 15:56 Back: No spinal tenderness. No costovertebral tenderness. Full range of motion. Skin: Warm, dry with normal turgor. Normal color with no rashes, no lesions, and no evidence of cellulitis. MS/ Extremity: Pulses equal, no cyanosis. Neurovascular intact. Full, normal range of motion. 15:56 Cardiovascular: Rate: normal, Rhythm: regular, Pulses: no pulse deficits are appreciated, Edema: is not appreciated. 15:56 Respiratory: Exam negative for acute changes, respiratory distress, shortness of breath, Breath sounds: are clear throughout. 15:56 Abdomen/GI: Inspection: abdomen appears normal, Palpation: abdomen is soft and non-tender, in all quadrants. 15:56 Neuro: Exam negative for acute changes, Orientation: is normal, Mentation: is normal, Cranial nerves: CN II- XII are normal as tested, Cerebellar function: Motor: is normal, moves all fours, Sensation: is normal, no obvious gross deficits, Gait: is steady, at a normal pace, without difficulty. Vital Signs: 12/04 15:47 BP 225 / 92; Pulse 86; Resp 18; Temp 98.0; Pulse Ox 98% ; Weight 82.55 kg; Height 5 ft. vg1 2 in. (157.48 cm); Pain 2/10; 16:41 BP 215 / 89; Pulse 87; Resp 20; Pulse Ox 98% on R/A; vg1 17:30 BP 178 / 84; Pulse 96; Resp 20; Pulse Ox 98% on R/A; vg1 18:49 BP 216 / 90; Pulse 88; Resp 20; Pulse Ox 97% on R/A; vg1 19:03 BP 183 / 91; Pulse 88; Resp 18; Pulse Ox 98% on R/A; vg1 15:47 Body Mass Index 33.29 (82.55 kg, 157.48 cm) vg1 MDM: 15:45 Patient medically screened. pm1 19:00 Physician consultation: Sam Lizarraga MD regarding consult, patient's condition, and pm1 will see patient in office, on Tuesday. Discussed r/o of stroke but incidental finding of early onset CHF without chest pain and shortness of breath. Prescribe the patient Lopressor 25 mg PO daily and have the patient monitor her blood pressure readings. Follow up in the office on Tuesday with her readings. 19:03 Data reviewed: vital signs. Data interpreted: Pulse oximetry: on room air is 97 %. pm1 Interpretation: normal. Counseling: I had a detailed discussion with the patient and/or guardian regarding: the historical points, exam findings, and any diagnostic results supporting the discharge/admit diagnosis, lab results, radiology results, the need for outpatient follow up, Dr. Lizarraga on Tuesday with BP readings, to return to the emergency department if symptoms worsen or persist or if there are any questions or concerns that arise at home. 12/04 15:56 Order name: Basic Metabolic Panel pm1 12/04 15:56 Order name: CBC with Diff; Complete Time: 17:43 pm1 12/04 15:56 Order name: LFT's; Complete Time: 17:43 pm1 12/04 15:56 Order name: Magnesium; Complete Time: 17:43 pm1 12/04 15:56 Order name: NT PRO-BNP; Complete Time: 17:43 pm1 12/04 15:56 Order name: PT-INR; Complete Time: 17:43 pm1 12/04 15:49 Order name: CT Head Brain wo Cont; Complete Time: 16:37 pm1 12/04 15:56 Order name: Troponin (emerg Dept Use Only); Complete Time: 17:43 pm1 12/04 15:56 Order name: XRAY Chest (1 view); Complete Time: 16:52 pm1 12/04 15:56 Order name: Basic Metabolic Panel; Complete Time: 17:43 EDMS 12/04 15:58 Order name: MRI - Brain Wo Cont; Complete Time: 18:43 pm1 12/04 15:56 Order name: EKG; Complete Time: 15:56 pm1 12/04 15:56 Order name: Cardiac monitoring; Complete Time: 16:29 pm1 12/04 15:56 Order name: EKG - Nurse/Tech; Complete Time: 16:29 pm1 12/04 15:56 Order name: IV Saline Lock; Complete Time: 16:39 pm1 12/04 15:56 Order name: Labs collected and sent; Complete Time: 16:39 pm1 12/04 15:56 Order name: O2 Per Protocol; Complete Time: 16:29 pm1 12/04 15:56 Order name: O2 Sat Monitoring; Complete Time: 16:29 pm1 Administered Medications: 17:23 Drug: Ativan (LORazepam) 1 mg Route: PO; vg1 18:41 Follow up: Response: No adverse reaction; Other; Pt states 'feeling more at ease' vg1 18:41 Drug: Tylenol 1000 mg Route: PO; vg1 19:32 Follow up: Response: No adverse reaction; Marked relief of symptoms vg1 19:08 Drug: Lopressor (metoprolol TARTRATE)) 25 mg Route: PO; vg1 19:32 Follow up: Response: Medication administered at discharge. vg1 Disposition: 21:55 Co-signature as Attending Physician, Jose Salazar MD I agree with the assessment and kdr plan of care. Disposition Summary: 12/04/20 19:15 Discharge Ordered Location: Home pm1 Problem: new pm1 Symptoms: have improved pm1 Condition: Stable pm1 Diagnosis - Essential (primary) hypertension pm1 - Paresthesia of skin pm1 - Headache pm1 Followup: pm1 - With: Emergency Department - When: As needed - Reason: Worsening of condition Followup: pm1 - With: Private Physician - When: 2 - 3 days - Reason: Recheck today's complaints, Continuance of care, Re-evaluation by your physician Discharge Instructions: - Discharge Summary Sheet pm1 - General Headache Without Cause pm1 - Hypertension, Adult pm1 - Paresthesia pm1 - How to Take Your Blood Pressure, [id number] pm1 - DASH Eating Plan pm1 - Managing Your Hypertension pm1 Forms: - Medication Reconciliation Form pm1 - Thank You Letter pm1 - Antibiotic Education pm1 - Prescription Opioid Use pm1 Prescriptions: - metoprolol succinate 25 mg Oral tablet extended release 24 hr - take 1 tablet by ORAL route once daily; 30 tablet; Refills: 0, Product pm1 Selection Permitted Signatures: Dispatcher [employer] EDJose Leyva MD MD kdr Marinas, Patrick, NP CUSTOMER MANAGER pm1 Melody Hernandez RN RN vg1
[2020-12-04] MEDS ORDERED: METOPROLOL TAR 25 MG TAB ONE (19:27)
[2020-12-04 19:45] VITALS: TEMP 98
[2020-12-04 19:52] VITALS: BP 183/91; O2SAT 98
--- NOTE | 2020-12-05 11:45 | EKG ---
Test Date: 2020-12-04 Test Time: 16:25:29 Conference Services Director: NICOLE MEASUREMENT RESULTS: Intervals: Rate: 88 CT: 160 QRSD: 68 QT: 386 QTc: 467 [place]: P: 63 CT: 160 QRS: 98 T: 70 INTERPRETIVE STATEMENTS: Normal sinus rhythm Rightward axis Borderline ECG Compared to ECG 05/21/2019 22:53:14 Right-axis deviation now present Electronically Signed On 12-05-20 11:42:15 CDT by Eugene Hopkins
== END 2020-12-04 19:32 | disposition home or self-care (01) ==
LOC: ER 15:22
DX: I10 Essential (primary) hypertension (principal); R20.2 Paresthesia of skin; Z86.73 Personal history of transient ischemic attack (TIA), and cerebral infarction without residual deficits; Z88.5 Allergy status to narcotic agent; Z91.011 Allergy to milk products; Z91.040 Latex allergy status; Z91.048 Other nonmedicinal substance allergy status
CPT/HCPCS: 36415; 70450; 70551; 71045; 80048; 80076; 83735; 83880; 84484; 85025; 85610; 93005; 99284

== ENCOUNTER 2021-04-14 16:24 | Observation (INO) | payer OTHER ==
[2021-04-14 17:31] LABS: Absolute Lymphocytes (CBC) 1.3 K/uL (0.7-4.9); Basophils % 0.7 % (0-1.3); Hematocrit 34.8 % (36.0-45.0); Lymphocytes % 20.1 % (15.3-44.8); MPV 8.2 fL (7.6-11.3); RBC Red Blood Cell Count 3.96 M/uL (3.86-4.86)
[2021-04-14 17:34] LABS: Protime INR 1.09
--- NOTE | 2021-04-14 17:40 | RAD REPORT ---
EXAM DESCRIPTION: CT - [id number] - 04/14/2021 5:24 pm CLINICAL HISTORY: HEADACHE, right-sided neck pain COMPARISON: Neck Angio dated 05/22/2019 TECHNIQUE: Axial 5 mm thick images of the head were obtained. Axial 2 mm thick images of the cervic al spine were obtained with sagittal and coronal reconstruction images generated and reviewed. All CT scans are performed using dose optimization technique as appropriate and may include automated exposure control or mA/KV adjustment according to patient size. FINDINGS: No intracranial hemorrhage, mass, edema or acute intracranial finding. No suspicion for ac agnieszka infarction. No extra-axial fluid collections. Mastoid air cells and paranasal sinuses are clear. No globe or orbit abnormality seen. Ventricles are normal. No significant atrophy or chronic ischemic change. Cervical bodies are normal in height. C5-6 fusion changes are present with no hardware in place. Ther e is reversal of the usual cervical lordosis with the apex at C5-6. No disk space narrowing. No fract ure or acute bony abnormality. Mild degenerative changes are present at the dens C1 level. Facet join t degenerative changes are present at multiple levels. Findings are more pronounced on the right at C 4-5. Mild left bony foraminal encroachment at C5-6. Central canal detail is inherently limited. No paraspinal mass or hematoma. IMPRESSION: Negative CT head examination for acute or significant finding. Cervical spine degenerative changes are present as detailed. No acute cervical spine finding.
--- NOTE | 2021-04-14 17:41 | RAD REPORT ---
EXAM DESCRIPTION: RAD - Chest Single View - 04/14/2021 5:32 pm CLINICAL HISTORY: high bp, headache COMPARISON: December 04 TECHNIQUE: AP portable chest image was obtained 04/14/2021 5:32 pm . FINDINGS: No peripheral mass or consolidation. Small bilateral pleural effusions are present. Cardio megaly is present. Central vasculature is similar to comparison. Interstitial markings are prominent. No pneumothorax. No acute bony abnormality seen. No acute aortic findings suspected. IMPRESSION: Mild CHF/volume overload findings are evident. A mild interstitial infiltrate could be superimposed on these findings.
[2021-04-14] MEDS ORDERED: METOPROLOL TARTRATE 5 MG/5 ML INJ IV ONE (17:48)
[2021-04-14 18:11] LABS: ALT/SGPT 26 U/L (12-78); AST/SGOT 17 U/L (15-37); Albumin 2.8 g/dL (3.4-5.0); Alkaline Phosphatase 149 U/L (45-117); BUN Blood Urea Nitrogen 24 mg/dL (7-18); Bicarbonate 26 mmol/L (21-32); Bilirubin Direct 0.2 mg/dL (0-0.2); Bilirubin Total 0.6 mg/dL (0.2-1.0); Glucose Level 106 mg/dL (74-106); Magnesium 2.2 mg/dL (1.8-2.4); NT PRO-BNP 13280 pg/mL (<125); Potassium 3.9 mmol/L (3.5-5.1); Protein, Total 6.3 g/dL (6.4-8.2); Sodium Level 142 mmol/L (136-145); Troponin (Emerg Dept Use Only) < 0.02 ng/mL (0.0-0.045)
--- NOTE | 2021-04-14 18:48 | EDPHYS ---
Physician Documentation [facility] Name: Mariluz Smith Age: 60 yrs Sex: Female : 1960 Arrival Date: 04/14/2021 Time: 16:26 Bed 17 Private MD: ED Physician Jose Salazar HPI: 04/14 19:43 This 60 yrs old Female presents to ER via Ambulatory with complaints of High Blood kdr Pressure, Headache. 19:43 Patient states that she has had a headache for the past 2 days. She also complains of kdr neck pain and feels that her blood pressure has been running high. In response she is taken her clonidine x2, Tylenol and other [id number] meds without any improvement. 3 years ago she has had a mini stroke. She states that she is under a lot of stress because she has taken custody of her 2 grandkids who are aged 5 and 8. Recently the parent/mother returned and had to be kicked out of the grandparents house as it is reported by her. She states that she is under tremendous amount of stress which is contributing to her current feelings and condition. 19:43 . Severity of symptoms: At their worst the symptoms were mild moderate in the emergency kdr department the symptoms are unchanged. The patient has not experienced similar symptoms in the past. The patient has not recently seen a physician. Historical: - Allergies: 16:42 Codeine; iw 16:42 Latex, Natural Rubber; iw 16:42 Milk; iw - Home Meds: 16:42 Combigan 0.2-0.5 % ophthalmic drop 1 drop every 12 hours [Active]; Prednisolone Opht iw [Active]; 16:42 metoprolol succinate 50 mg oral CSpX 1 cap once daily [Active]; aspirin 81 mg oral tab iw daily [Active]; clonidine HCl 0.1 mg Oral tab 1 tab 4 times per day [Active]; atorvastatin 40 mg oral tab 1 tab once daily [Active]; - PMHx: 16:42 Broken Neck; Glaucoma; TIA; iw - Immunization history:: Client reports receiving the 2nd dose of the Covid vaccine. - Social history:: Smoking status: Patient/guardian denies using tobacco, but has a distant history of tobacco abuse. ROS: 19:43 Constitutional: Negative for fever, chills, and weight loss, Eyes: Negative for injury, kdr pain, redness, and discharge, ENT: Negative for injury, pain, and discharge, Neck: Negative for injury, pain, and swelling, Cardiovascular: Negative for chest pain, palpitations, and edema, Respiratory: Negative for shortness of breath, cough, wheezing, and pleuritic chest pain, Abdomen/GI: Negative for abdominal pain, nausea, vomiting, diarrhea, and constipation, Back: Negative for injury and pain, Skin: Negative for injury, rash, and discoloration, Psych: Negative for depression, anxiety, suicide ideation, homicidal ideation, and hallucinations, Allergy/Immunology: Negative for hives, rash, and allergies, Endocrine: Negative for neck swelling, polydipsia, polyuria, polyphagia, and marked weight changes, Hematologic/Lymphatic: Negative for swollen nodes, abnormal bleeding, and unusual bruising. 19:43 Skin: Positive for The patient has diffuse erythema and bulla with weeping wounds on her lower extremities below the knee. She indicated that this is happening for the past week or 2.. 19:43 Neuro: Positive for headache, Negative for seizure activity, speech changes. Exam: 19:46 Constitutional: This is a well developed, well nourished patient who is awake, alert, kdr and in no acute distress. Head/Face: Normocephalic, atraumatic. Eyes: Pupils equal round and reactive to light, extra-ocular motions intact. Lids and lashes normal. Conjunctiva and sclera are non-icteric and not injected. Cornea within normal limits. Periorbital areas with no swelling, redness, or edema. Neck: Trachea midline, no thyromegaly or masses palpated, and no cervical lymphadenopathy. Supple, full range of motion without nuchal rigidity, or vertebral point tenderness. No Meningismus. Chest/axilla: Normal chest wall appearance and motion. Nontender with no deformity. No lesions are appreciated. Cardiovascular: Regular rate and rhythm with a normal S1 and S2. No gallops, murmurs, or rubs. Normal PMI, no JVD. No pulse deficits. Respiratory: Lungs have equal breath sounds bilaterally, clear to auscultation and percussion. No rales, rhonchi or wheezes noted. No increased work of breathing, no retractions or nasal flaring. Abdomen/GI: Soft, non-tender, with normal bowel sounds. No distension or tympany. No guarding or rebound. No evidence of tenderness throughout. Back: No spinal tenderness. No costovertebral tenderness. Full range of motion. MS/ Extremity: Pulses equal, no cyanosis. Neurovascular intact. Full, normal range of motion. Neuro: Awake and alert, GCS 15, oriented to person, place, time, and situation. Cranial nerves II-XII grossly intact. Motor strength 5/5 in all extremities. Sensory grossly intact. Cerebellar exam normal. Normal gait. Psych: Awake, alert, with orientation to person, place and time. Behavior, mood, and affect are within normal limits. 19:46 Cardiovascular: Edema: 2+ edema to level of left midcalf, left ankle, left foot, left toes, right midcalf, right ankle, right foot and right toes. 19:46 Skin: cellulitis, that is moderate, induration, that is moderate is noted, located on the right leg and left leg. Vital Signs: 16:40 BP 216 / 81; Pulse 73; Resp 16; Pulse Ox 98% on R/A; Weight 83.91 kg; Height 5 ft. 2 iw in. (157.48 cm); Pain 10/10; 18:10 BP 162 / 90; Pulse 70; Resp 18; Temp 98.2; Pulse Ox 100% on R/A; iw 18:15 BP 161 / 61; Pulse 66; Resp 18; Pulse Ox 96% on R/A; iw 18:25 BP 144 / 68; Pulse 66; Resp 18; Pulse Ox 98% on R/A; iw 18:30 BP 147 / 65; Pulse 64; Resp 18; Pulse Ox 97% on R/A; iw 18:40 BP 142 / 71; Pulse 64; Resp 18; Pulse Ox 97% on R/A; iw 18:50 BP 153 / 67; Pulse 62; Resp 18; Pulse Ox 97% ; iw 18:55 BP 166 / 64; Pulse 70; Resp 18; Pulse Ox 97% ; iw 19:00 BP 152 / 62; Pulse 66; Resp 18 S; Temp 98.1(O); Pulse Ox 96% on R/A; bb 21:29 BP 130 / 58; Pulse 61; Resp 18; Pulse Ox 97% on R/A; df1 16:40 Body Mass Index 33.84 (83.91 kg, 157.48 cm) MDM: 18:47 Patient medically screened. kdr 19:46 Data reviewed: vital signs, nurses notes, lab test result(s), radiologic studies. kdr Counseling: I had a detailed discussion with the patient and/or guardian regarding: the historical points, exam findings, and any diagnostic results supporting the discharge/admit diagnosis, lab results, radiology results, the need for further work-up and treatment in the hospital. Physician consultation: Sam Lizarraga MD would like admission per Dr. Ike Aruajo MD. 04/14 17:02 Order name: Basic Metabolic Panel 04/14 17:02 Order name: CBC with Diff; Complete Time: 18:39 04/14 17:02 Order name: LFT's; Complete Time: 18:39 04/14 17:02 Order name: Magnesium; Complete Time: 18:39 04/14 17:02 Order name: NT PRO-BNP; Complete Time: 18:39 04/14 17:02 Order name: PT-INR; Complete Time: 18:39 04/14 17:02 Order name: Troponin (emerg Dept Use Only); Complete Time: 18:39 04/14 17:02 Order name: XRAY Chest (1 view); Complete Time: 18:39 04/14 17:03 Order name: Basic Metabolic Panel; Complete Time: 18:39 EDMN 04/14 17:21 Order name: Head C Spine Mpr Wo Con; Complete Time: 18:39 EDMN 04/14 18:47 Order name: SARS-COV-2 RT PCR (Document "Date of Onset" if Symptomatic) 04/14 18:47 Order name: SARS-COV-2 RT PCR EDMN 04/14 17:02 Order name: EKG; Complete Time: 17:03 04/14 17:02 Order name: Cardiac monitoring; Complete Time: 18:10 04/14 17:02 Order name: EKG - Nurse/Tech; Complete Time: 21:35 04/14 17:02 Order name: IV Saline Lock; Complete Time: 17:21 04/14 17:02 Order name: Labs collected and sent; Complete Time: 17:21 04/14 17:02 Order name: O2 Per Protocol; Complete Time: 17:21 04/14 17:02 Order name: O2 Sat Monitoring; Complete Time: 17:21 iw Administered Medications: 18:10 Drug: Lopressor (metoprolol) 5 mg Route: IVP; Site: right antecubital; iw 18:15 Drug: Lopressor (metoprolol) 5 mg Route: IVP; Site: right antecubital; iw 18:46 Drug: Lasix (furosemide) 40 mg Route: IVP; Site: right antecubital; iw 18:55 Drug: Lopressor (metoprolol) 5 mg Route: IVP; Site: right antecubital; iw Disposition Summary: 04/14/21 18:47 Hospitalization Ordered Hospitalization Status: Observation kdr Location: Telemetry/MedSurg (observation) kdr Condition: Fair kdr Problem: new kdr Symptoms: have improved kdr Bed/Room Type: Standard kdr Provider: Ike Araujo(04/14/21 18:52) kdr Room Assignment: 229(04/14/21 20:21) mw Diagnosis - Headache kdr - Diastolic (congestive) heart failure kdr - Edema, unspecified kdr Forms: - Medication Reconciliation Form kdr - SBAR form kdr Signatures: Dispatcher [employer] EDMS Yarely Dueñas RN RN mw Jose Salazar MD MD kdr Amira Frias RN RN iw Corrections: (The following items were deleted from the chart) 17:21 16:47 Head Brain Wo Cont+CT.RAD.BRZ ordered. EDMS EDMS 18:52 18:47 Sam Lizarraga kdr kdr 20:21 18:47 kdr mw
--- NOTE | 2021-04-14 18:48 | ER ---
Nurse's Notes [facility] Name: Mariluz Smith Age: 60 yrs Sex: Female : 1960 Arrival Date: 04/14/2021 Time: 16:26 Bed 17 Private MD: Diagnosis: Headache;Diastolic (congestive) heart failure;Edema, unspecified Presentation: 04/14 16:40 Chief complaint: Patient states: has had bad headache on and off X 2days, also has neck iw pain, BP has been running high, has taken clonidine, tylenol, no improvement , had a mini stroke 3 years ago. Coronavirus screen: At this time, the client does not indicate any symptoms associated with coronavirus-19. Ebola Screen: Patient negative for fever greater than or equal to 101.5 degrees Fahrenheit, and additional compatible Ebola Virus Disease symptoms Patient denies exposure to infectious person. Patient denies travel to an Ebola-affected area in the 21 days before illness onset. No symptoms or risks identified at this time. Initial Sepsis Screen: Does the patient meet any 2 criteria? No. Patient's initial sepsis screen is negative. Does the patient have a suspected source of infection? No. Patient's initial sepsis screen is negative. Risk Assessment: Do you want to hurt yourself or someone else? Patient reports no desire to harm self or others. Onset of symptoms was April 12, 2021. 16:40 Method Of Arrival: Ambulatory iw 16:40 Acuity: RACHANA 2 iw Triage Assessment: 17:00 Headache History: The patient has had previous headaches and this one is similar to iw previous episodes. Pain: Also complains of. 17:00 General: Appears in no apparent distress. uncomfortable, obese, well groomed, well iw developed, Behavior is calm, cooperative, appropriate for age. Pain: Complains of pain in Head Pain currently is 6 out of 10 on a pain scale. Quality of pain is described as aching, pressure. Neuro: Reports headache. Cardiovascular: Reports Hypertension Capillary refill < 3 seconds Rhythm is regular. Respiratory: No deficits noted. Reports. GI: No deficits noted. No signs and/or symptoms were reported involving the gastrointestinal system. : No deficits noted. No signs and/or symptoms were reported regarding the genitourinary system. Derm: No deficits noted. No signs and/or symptoms reported regarding the dermatologic system. Musculoskeletal: No deficits noted. No signs and/or symptoms reported regarding the musculoskeletal system. 18:34 General: Appears. iw 19:00 Pain: Pain began today. bb Historical: - Allergies: 16:42 Codeine; iw 16:42 Latex, Natural Rubber; iw 16:42 Milk; iw - Home Meds: 16:42 Combigan 0.2-0.5 % ophthalmic drop 1 drop every 12 hours [Active]; Prednisolone Opht iw [Active]; 16:42 metoprolol succinate 50 mg oral CSpX 1 cap once daily [Active]; aspirin 81 mg oral tab iw daily [Active]; clonidine HCl 0.1 mg Oral tab 1 tab 4 times per day [Active]; atorvastatin 40 mg oral tab 1 tab once daily [Active]; - PMHx: 16:42 Broken Neck; Glaucoma; TIA; iw - Immunization history:: Client reports receiving the 2nd dose of the Covid vaccine. - Social history:: Smoking status: Patient/guardian denies using tobacco, but has a distant history of tobacco abuse. Screenin:00 Abuse screen: Denies threats or abuse. Denies injuries from another. iw 17:00 Nutritional screening: No deficits noted. Tuberculosis screening: No symptoms or risk iw factors identified. Fall Risk None identified. No fall in past 12 months (0 pts). No secondary diagnosis (0 pts). No IV (0 pts). Ambulatory Aid- None/Bed Rest/Nurse Assist (0 pts). Gait- Normal/Bed Rest/Wheelchair (0 pts) Mental Status- Oriented to own ability (0 pts). Assessment: 19:00 Reassessment: Patient appears in no apparent distress at this time. General: Appears in bb no apparent distress. Behavior is calm, cooperative. Pain: Denies pain. Neuro: No deficits noted. Level of Consciousness is awake, alert, obeys commands, Oriented to person, place, time, situation. Cardiovascular: No deficits noted. Rhythm is sinus rhythm. Respiratory: No deficits noted. Airway is patent Respiratory effort is even, unlabored, Respiratory pattern is regular, symmetrical. GI: No deficits noted. Abdomen is obese, Bowel sounds present X 4 quads. : No signs and/or symptoms were reported regarding the genitourinary system. EENT: No deficits noted. No signs and/or symptoms were reported regarding the EENT system. Eyes clear. Nares are clear Oral mucosa is moist. Musculoskeletal: No deficits noted. Range of motion: intact in all extremities. 19:00 Derm: Skin has blisters on noted right lower leg with redness \\T\\ edema; edema \\T\\ redness bb noted left lower leg; reports redness, swelling \\T\\ blisters of bilateral lower legs since end of December after having Covid-19; states, "the blisters will come up, pop \\T\\ then heal". Blister noted left lower leg; # 22 g saline lock intact right AC with no s/sx's of infection/infiltration noted of site. 19:30 Reassessment: Patient appears in no apparent distress at this time. eNri Navarrete NP in to bb see \\T\\ instructing on need for admission with v/u. 20:03 Reassessment: EKG done with Dr. Osmany burgos. bb 21:55 Reassessment: Report telephoned to STEPHIE Gutiérrez of 2nd floor med-surg; reports headache bb returning with STEPHIE Gutiérrez notified; NAD. Vital Signs: 16:40 BP 216 / 81; Pulse 73; Resp 16; Pulse Ox 98% on R/A; Weight 83.91 kg; Height 5 ft. 2 iw in. (157.48 cm); Pain 10/10; 18:10 BP 162 / 90; Pulse 70; Resp 18; Temp 98.2; Pulse Ox 100% on R/A; iw 18:15 BP 161 / 61; Pulse 66; Resp 18; Pulse Ox 96% on R/A; iw 18:25 BP 144 / 68; Pulse 66; Resp 18; Pulse Ox 98% on R/A; iw 18:30 BP 147 / 65; Pulse 64; Resp 18; Pulse Ox 97% on R/A; iw 18:40 BP 142 / 71; Pulse 64; Resp 18; Pulse Ox 97% on R/A; iw 18:50 BP 153 / 67; Pulse 62; Resp 18; Pulse Ox 97% ; iw 18:55 BP 166 / 64; Pulse 70; Resp 18; Pulse Ox 97% ; iw 19:00 BP 152 / 62; Pulse 66; Resp 18 S; Temp 98.1(O); Pulse Ox 96% on R/A; bb 21:29 BP 130 / 58; Pulse 61; Resp 18; Pulse Ox 97% on R/A; df1 16:40 Body Mass Index 33.84 (83.91 kg, 157.48 cm) iw ED Course: 16:26 Patient arrived in ED. rg4 16:41 Triage completed. iw 16:42 Arm band placed on. iw 16:51 Saadia Marti, RN is Primary Nurse. sl2 17:00 Patient has correct armband on for positive identification. Placed in gown. Bed in low iw position. Call light in reach. Side rails up X2. 17:00 No provider procedures requiring assistance completed. iw 17:06 Jose Salazar MD is Attending Physician. kdr 17:20 Inserted saline lock: 18 gauge in right antecubital area, using aseptic technique. dh4 Blood collected. 17:24 Head C Spine Mpr Wo Con In Process Unspecified. EDMS 17:32 XRAY Chest (1 view) In Process Unspecified. EDMS 18:45 Sam Lizarraga MD is Hospitalizing Provider. kdr 18:52 Arash Araujo MD is Hospitalizing Provider. kdr 18:52 Ike Araujo MD is Hospitalizing Provider. kdr 19:47 SARS-COV-2 RT PCR (Document "Date of Onset" if Symptomatic) Sent. sl2 19:47 SARS-COV-2 RT PCR Sent. sl2 21:35 Basic Metabolic Panel Sent. bb 21:55 Patient admitted, IV remains in place. bb Administered Medications: 18:10 Drug: Lopressor (metoprolol) 5 mg Route: IVP; Site: right antecubital; iw 18:15 Drug: Lopressor (metoprolol) 5 mg Route: IVP; Site: right antecubital; iw 18:46 Drug: Lasix (furosemide) 40 mg Route: IVP; Site: right antecubital; iw 18:55 Drug: Lopressor (metoprolol) 5 mg Route: IVP; Site: right antecubital; iw Outcome: 18:47 Decision to Hospitalize by Provider. kdr 20:55 Admitted to Med/surg accompanied by tech, via wheelchair, room 229, Report called to tyrone Gutiérrez RN. 20:55 Condition: stable 20:55 Instructed on the need for admit, Demonstrated understanding of instructions. 22:04 Patient left the ED. bb Signatures: Dispatcher [employer] EDMS Jose Salazar MD MD kdr Magdalena Cornejo RN RN bb Amira Frias, RN RN Yolande Hernandez 4 Lev Briseno 4 Joanie Whitten df1 Saadia Marti RN RN sl2 Corrections: (The following items were deleted from the chart) 21:58 19:00 Derm: Skin has blisters on noted right lower leg with redness \\T\\ edema; edema \\T\\ bb redness noted left lower leg; reports redness, swelling \\T\\ blisters of bilateral lower legs since end of December after having Covid-19; states, "the blisters will come up, pop \\T\\ then heal". bb 22:02 19:00 Derm: Skin has blisters on noted right lower leg with redness \\T\\ edema; edema \\T\\ bb redness noted left lower leg; reports redness, swelling \\T\\ blisters of bilateral lower legs since end of December after having Covid-19; states, "the blisters will come up, pop \\T\\ then heal". Blister noted left lower leg. bb
[2021-04-14] MEDS ORDERED: FUROSEMIDE 40 MG/4 ML VIAL ONE (18:53)
--- NOTE | 2021-04-14 19:47 | P.HP ---
Certification for Inpatient Patient admitted to: Observation With expected LOS: <2 Midnights Patient will require the following post-hospital care: None Practitioner: I am a practitioner with admitting privileges, knowledge of patient current condition, hospital course, and medical plan of care. Services: Services provided to patient in accordance with Admission requirements found in Title 42 Section 412.3 of the Code of Federal Regulations Patient History Date of Service: 04/14/21 Primary Care Provider: Dr. Briseno [facility] Reason for admission: CHF exacerbation History of Present Illness: 60-year-old female with history of TIA, hypertension, chronic diastolic congestive heart failure presents emerged department for headache and lower extremity edema. Patient reports increasing swelling to lower extremities over the course of the last few weeks with dyspnea on exertion. Patient not on any diuretic therapy at home. Patient was evaluated in the emergency department lab significant for hemoglobin 11.8 hematocrit 34.8 BNP 13,280 CT scan head/C- spine without contrast demonstrates cervical spine degenerative changes with no acute spine finding, chest x-ray demonstrates CHF/volume overload findings with mild interstitial infiltrate. Patient with 2+ pitting edema bilateral lower extremities with blisters and some erythema noted. Doubt cellulitis. Patient given 40 mg IV Lasix in the emergency department will continue with treatment. Allergies codeine Allergy (Verified 05/22/19 03:39) Anaphylaxis Latex, Natural Rubber Allergy (Verified 05/22/19 03:39) see comment milk Allergy (Verified 05/22/19 03:39) see comment Milk Containing Products Allergy (Verified 05/22/19 03:39) see comment Home Medications: Brimonidine Tartrate/Timolol [Combigan 0.2%-0.5% Eye Drops] 1 drop EACH EYE BID 05/22/19 Aspirin Chewable [Aspirin Chewable*] 81 mg PO DAILY #30 tab.chew 05/24/19 Atorvastatin Calcium [Lipitor] 40 mg PO BEDTIME #30 tab 05/24/19 - Past Medical/Surgical History Diabetic: Yes -: cataracts -: macular degeneration -: neck fx -: Hypertension -: Chronic diastolic congestive heart failure -: TIA -: cataract surgery bilateral eyes -: neck sx -: finger sx Psychosocial/ Personal History: Patient lives at home, cares for her 2 grandchildren - Family History Mother -: Stroke Father -: Heart disease, Hypertension - Social History Smoking Status: Former smoker Alcohol use: No CD- Drugs: No Caffeine use: No Place of Residence: Home Review of Systems 10-point ROS is otherwise unremarkable Respiratory: SOB with Excertion Cardiovascular: Edema Integumentary: As per HPI Physical Examination - Physical Exam General: Alert, In no apparent distress, Oriented x3 HEENT: Atraumatic, PERRLA, Mucous membr. moist/pink, EOMI, Sclerae nonicteric Neck: Supple, 2+ carotid pulse no bruit, No LAD, Without JVD or thyroid abnormality Respiratory: Diminished, Crackles/rales Cardiovascular: Regular rate/rhythm, Normal S1 S2, Edema (2+ pitting edema bilateral lower extremities) Capillary refill: <2 Seconds Gastrointestinal: Normal bowel sounds, No tenderness Musculoskeletal: No tenderness Integumentary: No rashes Neurological: Normal speech, Normal strength at 5/5 x4 extr, Normal tone, Normal affect - Studies Laboratory Data (last 24 hrs) 04/14/21 17:18: PT 12.6 H, INR 1.09 04/14/21 17:18: WBC 6.70, Hgb 11.8 L, Hct 34.8 L, Plt Count 239 04/14/21 17:18: Sodium 142, Potassium 3.9, BUN 24 H, Creatinine 0.82, Glucose 106, Magnesium 2.2, Total Bilirubin 0.6, AST 17, ALT 26, Alkaline Phosphatase 149 H Assessment and Plan - Plan Assessment: Acute on chronic diastolic congestive heart failure Hypertension History of TIA Plan: Acute on chronic diastolic congestive heart failure: 1500 cc/day fluid restriction, daily weights. Continue with Lasix IV 40 mg twice daily, obtain echocardiogram last echocardiogram done in 2019 demonstrated normal ejection fraction. Cardiology consulted. Hypertension: Obtain and continue medications History of TIA: Continue aspirin DVT PPX: Lovenox Code status: Full Discharge Plan: Home Plan to discharge in: 24 Hours - Advance Directives Does patient have a Living Will: No Does patient have a Durable POA for Healthcare: No - Code Status/Comfort Care Code Status Assessed: Yes (Full code) Critical Care: No Time Spent Managing Pts Care (In Minutes): 55
[2021-04-14] MEDS ORDERED: ATORVASTATIN 40 MG TAB PO SCH (22:08)
[2021-04-14] MEDS ORDERED: ONDANSETRON 4 MG/2 ML VIAL IV PRN (22:08)
[2021-04-14 22:32] VITALS: O2SAT 97
[2021-04-14] MEDS: ACETAMINOPHEN 500 MG TAB PO PRN (23:23)
[2021-04-14 23:57] VITALS: BMI 33.8
[2021-04-15 04:43] LABS: Absolute Lymphocytes (CBC) 1.7 K/uL (0.7-4.9); Basophils % 1.1 % (0-1.3); Hematocrit 30.6 % (36.0-45.0); Lymphocytes % 25.7 % (15.3-44.8); MPV 8.6 fL (7.6-11.3); RBC Red Blood Cell Count 3.48 M/uL (3.86-4.86)
[2021-04-15 05:01] LABS: Albumin 2.4 g/dL (3.4-5.0); Bilirubin Total 0.6 mg/dL (0.2-1.0); Magnesium 2.1 mg/dL (1.8-2.4); Potassium 3.5 mmol/L (3.5-5.1); Protein, Total 5.5 g/dL (6.4-8.2); Thyroid Stimulating Hormone 3.17 uIU/mL (0.360-3.740)
[2021-04-15] MEDS ORDERED: POTASSIUM CL SA 10 MEQ TAB PO ONE (05:30)
[2021-04-15] MEDS ORDERED: METOPROLOL TAR 25 MG TAB PO SCH (06:00)
[2021-04-15] MEDS: ACETAMINOPHEN 500 MG TAB PO PRN (06:47)
[2021-04-15] MEDS ORDERED: PNEUMOCOCCAL VACCINE 0.5 ML IMVAC ONE (08:00)
[2021-04-15] MEDS ORDERED: INFLUENZA VACCINE (for 6+ mo) 0.5 ML DOSE IMVAC ONE (08:00)
--- NOTE | 2021-04-15 08:03 | EKG ---
Test Date: 2021-04-14 Test Time: 20:03:56 Web Interface Developer: LUIS MEASUREMENT RESULTS: Intervals: Rate: 66 AK: 152 QRSD: 78 QT: 490 QTc: 513 [place]: P: 47 AK: 152 QRS: 66 T: 47 INTERPRETIVE STATEMENTS: Normal sinus rhythm Possible Left atrial enlargement Prolonged QT Abnormal ECG Compared to ECG 12/04/2020 16:25:29 Prolonged QT interval now present Right-axis deviation no longer present Electronically Signed On 04-15-21 08:03:01 BUYER ASSISTANT by Eugene Hopkins
[2021-04-15] MEDS ORDERED: lisinopriL 5 MG TAB PO SCH (09:00)
[2021-04-15] MEDS ORDERED: TIMOLOL OPTH SCH (09:00)
[2021-04-15] MEDS ORDERED: BRIMONIDINE TARTRATE OPTH SCH (09:00)
[2021-04-15] MEDS ORDERED: ENOXAPARIN 40 MG/0.4 ML SQ SCH (09:00)
[2021-04-15] MEDS ORDERED: FUROSEMIDE 40 MG/4 ML VIAL IV SCH (09:00)
[2021-04-15] MEDS ORDERED: ASPIRIN EC 81 MG TAB PO SCH (09:00)
--- NOTE | 2021-04-15 12:25 | P.DS ---
Admission Date: 04/14/21 Discharge Date: 04/15/21 Primary Care Provider: Dr. Briseno [facility] Disposition: ROUTINE DISCHARGE Discharge Condition: GOOD Reason for Admission: CHF exacerbation Consultations: Cardiology - Dr. Hopkins Procedures: CT head/C-spine (04/14): IMPRESSION: Negative CT head examination for acute or significant finding. Cervical spine degenerative changes are present as detailed. No acute cervical spine finding. CXR (04/14): IMPRESSION: Mild CHF/volume overload findings are evident. A mild interstitial infiltrate could be superimposed on these findings. Problem list Acute on chronic diastolic congestive heart failure Pericardial effusion (mild), likely sequelae of recent COVID-19 infection Hypertension History of TIA Brief History of Present Illness: 60-year-old female with history of TIA, hypertension, chronic giron tolic congestive heart failure presents emerged department for headache and lower extremity edema. Patient reports increasing swelling to lower extremities over the course of the last few weeks with dyspnea on exertion. Patient not on any diuretic therapy at home. Patient was evaluated in the emergency department lab significant for hemoglobin 11.8 hematocrit 34.8 BNP 13,280 CT scan head/C-spine without contrast demonstrates cervical spine degenerative changes with no acute spine finding, chest x-ray demonstrates CHF/volume overload findings with mild interstitial infiltrate. Patient with 2+ pitting edema bilateral lower extremities with blisters and some erythema noted. Doubt cellulitis. Patient given 40 mg IV Lasix in the emergency department will continue with treatment. Hospital Course: Patient had some improvement with initiation of IV Lasix. Cardiology was consulted and patient underwent echocardiogram. Official report not available at time of discharge, however support services tech reported a small pericardial effusion, felt that this was likely sequelae of her recent COVID-19 infection. Recommended 40 mg Lasix twice daily and low-dose lisinopril on discharge, as well as short course of prednisone and colchicine. Throughout her hospitalization, patient did not requiring any oxygen supplementation. Patient also reported a a lot of stress anxiety from issues with her family. She reported doing well previously on Zoloft and requested to be restarted. Started patient on low-dose Zoloft and to follow-up with PCP, to gradually increase to effective dosing and monitor for side effects. Patient is to follow-up with her PCP within 1 week Follow-up with cardiology in 2 weeks Vital Signs/Physical Exam: Temp Pulse Resp BP Pulse Ox 98.4 F 72 18 142/70 H 97 04/15/21 08:00 04/15/21 08:00 04/15/21 08:00 04/15/21 08:00 04/15/21 08:00 General: Alert, In no apparent distress, Oriented x3 HEENT: Sclerae nonicteric Respiratory: Diminished (Bilaterally at bases) Cardiovascular: Regular rate/rhythm, Edema (1-2+ pitting edema to knees bilaterally) Gastrointestinal: Soft and benign, Non-distended, No tenderness Integumentary: Skin breakdown (Bilateral anterior tibial area with dry/cracked skin, small healing superficial blisters from edema) Neurological: Normal speech, Normal strength at 5/5 x4 extr, Normal affect Laboratory Data at Discharge: WBC 6.50 K/uL (4.3-10.9) 04/15/21 04:15 Hgb 10.3 g/dL (12.0-15.0) L 04/15/21 04:15 Hct 30.6 % (36.0-45.0) L 04/15/21 04:15 Plt Count 208 K/uL (152-406) 04/15/21 04:15 PT 12.6 SECONDS (9.5-12.5) H 04/14/21 17:18 INR 1.09 04/14/21 17:18 Sodium 141 mmol/L (136-145) 04/15/21 04:15 Potassium 3.5 mmol/L (3.5-5.1) 04/15/21 04:15 BUN 24 mg/dL (7-18) H 04/15/21 04:15 Creatinine 0.85 mg/dL (0.55-1.3) 04/15/21 04:15 Glucose 101 mg/dL (74-106) 04/15/21 04:15 Magnesium 2.1 mg/dL (1.8-2.4) 04/15/21 04:15 Total Bilirubin 0.6 mg/dL (0.2-1.0) 04/15/21 04:15 AST 11 U/L (15-37) L 04/15/21 04:15 ALT 20 U/L (12-78) 04/15/21 04:15 Alkaline Phosphatase 123 U/L (45-117) H 04/15/21 04:15 Home Medications: Aspirin 81 mg PO DAILY 04/15/21 Atorvastatin Calcium 40 mg PO DAILY 04/15/21 Brimonidine Tartrate/Timolol [Combigan 0.2%-0.5% Eye Drops] 5 ml EACH EYE BID 04/15/21 Colchicine [Colcrys *] 0.6 mg PO BID 14 Days #28 tab 04/15/21 Furosemide [Lasix] 40 mg PO BID 30 Days #60 tablet 04/15/21 Metoprolol Tartrate [Lopressor*] 25 mg PO BID 6AM 6PM tab 04/15/21 Potassium Chloride [Klor-Con 10] 10 meq PO DAILY 14 Days #14 tablet.er 04/15/21 Sertraline [Zoloft] 0.5 tab PO DAILY 60 Days #30 tab 04/15/21 lisinopriL [Prinivil*] 5 mg PO DAILY 30 Days #30 tab 04/15/21 predniSONE [Deltasone*] 10 mg PO BID 14 Days #28 tab 04/15/21 New Medications: Colchicine [Colcrys *] 0.6 mg PO BID 14 Days #28 tab predniSONE [Deltasone*] 10 mg PO BID 14 Days #28 tab Potassium Chloride [Klor-Con 10] 10 meq PO DAILY 14 Days #14 tablet.er Furosemide [Lasix] 40 mg PO BID 30 Days #60 tablet lisinopriL [Prinivil*] 5 mg PO DAILY 30 Days #30 tab Sertraline [Zoloft] 0.5 tab PO DAILY 60 Days #30 tab Diet: AHA Activity: Ad ayala Followup: Sam Lizarraga MD [Primary Care Provider] - Time spent managing pt's care (in minutes): 45
[2021-04-15 12:53] LABS: Urine Appearance Clear (Clear); Urine Bilirubin Negative (Negative); Urine Blood 1+ (Negative); Urine Color Yellow (Yellow); Urine Glucose Negative (Negative); Urine Protein 2+ (Negative); Urine Urobilinogen 0.2 mg/dL (0.2-1.0); Urine pH 5.5 (5.0-7.0)
[2021-04-15 12:55] LABS: Urine Microscopic Reflex ORDER UMIC
[2021-04-15 13:03] LABS: Urine Bacteria 20-50 /HPF (<20); Urine RBC <5 /HPF (NONE SEEN)
[2021-04-15 14:10] VITALS: BP 134/62; TEMP 98.8
--- NOTE | 2021-04-20 07:27 | ECHO ---
HEIGHT: 5 ft 2 in WEIGHT: 185 lb 0 oz DATE OF STUDY: 04/15/[address]: Naldo Navarrete NP 2-DIMENSIONAL: YES M.MODE: YES DOPPLER: YES COLOR FLOW: YES TDS: NO PORTABLE: NO DEFINITY: NO BUBBLE STUDY: NO DIAGNOSIS: PEDAL EDEMA, CONGESTIVE HEART FAILURE CARDIAC HISTORY: CATHERIZATION: SURGERY: PROSTHETIC VALVE: PACEMAKER: MEASUREMENTS (cm) DIASTOLIC (NORMALS) SYSTOLIC (NORMALS) IVSd 1.1 (0.6-1.2) LA Diam 4.2 (1.9-4.0) LVEF 60% LVIDd 4.5 (3.5-5.7) LVIDs 3.1 (2.0-3.5) %FS 32% LVPWd 0.9 (0.6-1.2) Ao Diam 2.7 (2.0-3.7) 2 DIMENSIONAL ASSESSMENT: RIGHT ATRIUM: NORMAL LEFT ATRIUM: NORMAL RIGHT VENTRICLE: NORMAL LEFT VENTRICLE: NORMAL TRICUSPID VALVE: MITRAL VALVE: PULMONIC VALVE: NORMAL AORTIC VALVE: NORMAL PERICARDIAL EFFUSION: SMALL AORTIC ROOT: NORMAL LEFT VENTRICULAR WALL MOTION: NORMAL DOPPLER/COLOR FLOW: SEE BELOW COMMENTS: NORMAL LEFT VENTRICULAR EJECTION FRACTION 55-60% WITH NORMAL WALL MOTION. DIASTOLIC DYSFUNCTION. MILD TRICUSPID AND MITRAL REGURGITATION. TECHNOLOGIST: Tigist ROQUE
--- NOTE | 2021-04-20 10:47 | CON ---
Date of Consultation: 04/14/[address] Lizarraga's service. I saw the patient on 04/14/2021. Reason For Consultation: Congestive heart failure. History Of Present Illness: Ms. Smith is a 60-year-old, has had recurrent visits, came in on 2020 with shortness of breath. X-ray showed mild congestive heart failure and volume overload. She has had a history of severe hypertension, dyslipidemia, history of TIAs in the past. Review of Systems: Positive for headache. Social History: Negative. Family History: Noncontributory. Allergies: CODEINE, LATEX AND MILK. Medications: At home include aspirin, Lipitor, clonidine, Combivent inhaler, Combigan eye drops, met oprolol, prednisolone . Physical Examination: Vital Signs: Stable, afebrile, sinus rhythm. HEENT: Negative. Neck: Supple with no bruit. Chest: Clear to auscultation and percussion. Cardiac: Revealed a regular rate with S4 gallop. No murmurs. No rubs. Abdomen: Benign. Extremities: Revealed no clubbing, cyanosis, or edema. Diagnostic Data: Fairly unremarkable except for the chest x-ray. Impression And Plan: 1.Possible acute diastolic congestive heart failure secondary to hypertension. 2.Headache secondary to hypertension. 3.Dyslipidemia. I think she needs to have a 2D echocardiogram done as soon as possible. Continue her medication . W e will see how the echo shows before making further decisions. JERI/ROMAINE Voice ID: [id number] Report ID: [id number]
== END 2021-04-15 13:20 | disposition home or self-care (01) ==
LOC: ER 16:24 → ERHOLD 19:54 → 2ND 21:27
PROVIDERS: ADMIT Hospitalist; ATTEND Hospitalist
DX: I11.0 Hypertensive heart disease with heart failure (principal); I50.33 Acute on chronic diastolic (congestive) heart failure; Z86.73 Personal history of transient ischemic attack (TIA), and cerebral infarction without residual deficits; Z20.822 Contact with and (suspected) exposure to COVID-19; Z86.16 Personal history of COVID-19; Z91.040 Latex allergy status; Z91.011 Allergy to milk products
CPT/HCPCS: 36415; 70450; 71045; 72125; 80048; 80053; 80076; 81003; 81015; 83735; 83880; 84145; 84439; 84443; 84484; 85025; 85610; 87086; 87088; 93005; 93306; 96374; 96375; 99285; G0378; J1650; J1940; U0003

== ENCOUNTER 2021-04-16 02:05 | Inpatient (IN) | payer OTHER ==
[2021-04-16] MEDS ORDERED: ONDANSETRON 4 MG/2 ML VIAL ONE (02:31)
[2021-04-16] MEDS ORDERED: MORPHINE 4 MG/ML SYR ONE (02:31)
[2021-04-16 03:08] LABS: Absolute Lymphocytes (CBC) 1.3 K/uL (0.7-4.9); Basophils % 1.2 % (0-1.3); Hematocrit 33.7 % (36.0-45.0); Lymphocytes % 20.6 % (15.3-44.8); MPV 8.5 fL (7.6-11.3); RBC Red Blood Cell Count 3.84 M/uL (3.86-4.86)
[2021-04-16] MEDS ORDERED: NA CHLORIDE 0.9% 50 ML ONE (03:10)
[2021-04-16] MEDS ORDERED: METOCLOPRAMIDE 10 MG/2mL INJ ONE (03:10)
[2021-04-16 03:13] LABS: Potassium 3.5 mmol/L (3.5-5.1)
[2021-04-16 04:38] LABS: C-Reactive Protein 4.51 mg/L (<3.00)
[2021-04-16] MEDS ORDERED: METHYLPREDNISOLONE 125 MG INJ ONE (04:45)
[2021-04-16] MEDS ORDERED: FENTANYL CITR 100 MCG/2 ML ONE (04:46)
--- NOTE | 2021-04-16 05:33 | ER ---
Nurse's Notes [facility] Name: Mariluz Smith Age: 60 yrs Sex: Female : 1960 Arrival Date: 04/16/2021 Time: 02:11 Bed 7 Private MD: Diagnosis: Headache Presentation: 04/16 02:46 Chief complaint: Patient states: " Worst headache of my life". Coronavirus screen: tw5 Vaccine status: Patient reports receiving the 2nd dose of the covid vaccine. Ebola Screen: Patient negative for fever greater than or equal to 101.5 degrees Fahrenheit, and additional compatible Ebola Virus Disease symptoms Patient denies exposure to infectious person. Patient denies travel to an Ebola-affected area in the 21 days before illness onset. Initial Sepsis Screen: Does the patient meet any 2 criteria? No. Patient's initial sepsis screen is negative. Does the patient have a suspected source of infection? No. Patient's initial sepsis screen is negative. Risk Assessment: Do you want to hurt yourself or someone else? Patient reports no desire to harm self or others. Onset of symptoms was April 16, 2021. 02:46 Method Of Arrival: Wheelchair tw5 02:46 Acuity: RACHANA 3 tw5 Triage Assessment: 02:46 Headache History: The patient has had previous headaches and this one is more severe tw5 than previous episodes. General: Appears uncomfortable, Behavior is fussy. Pain: Pain currently is 1. out of 10 on a pain scale. Pain began suddenly, Also complains of inability to concentrate. Neuro: Level of Consciousness is awake, alert, obeys commands. Historical: - Allergies: 02:45 Codeine; tw5 02:45 Latex, Natural Rubber; tw5 02:45 Milk; tw5 - Home Meds: 02:45 aspirin 81 mg Oral tab daily [Active]; atorvastatin 40 mg Oral tab 1 tab once daily tw5 [Active]; clonidine HCl 0.1 mg Oral tab 1 tab 4 times per day [Active]; Combigan 0.2-0.5 % ophthalmic drop 1 drop every 12 hours [Active]; metoprolol succinate 50 mg Oral CSpX 1 cap once daily [Active]; Prednisolone Opht [Active]; - PMHx: 02:45 Broken Neck; Glaucoma; TIA; tw5 - Immunization history:: Client reports receiving the 2nd dose of the Covid vaccine. - Social history:: Smoking status: Patient denies any tobacco usage or history of. Screenin:44 Abuse screen: Denies threats or abuse. Denies injuries from another. Nutritional tw5 screening: No deficits noted. Tuberculosis screening: No symptoms or risk factors identified. Fall Risk Fall in past 12 months (25 points). Assessment: 02:48 Pain: Pain currently is 10 out of 10 on a pain scale. Pain: Noted to be moaning. Neuro: tw5 Level of Consciousness is awake, alert, obeys commands. Cardiovascular: Heart tones S1 S2. Respiratory: Airway is patent Trachea midline Respiratory effort is even, unlabored, Respiratory pattern is regular. 03:30 Reassessment: No changes from previously documented assessment. Patient and/or family tw5 updated on plan of care and expected duration. Pain level reassessed. Pain: Noted to be moaning. 05:22 General: Behavior is anxious, crying. tw5 07:00 Reassessment: Pt laying in bed with eyes closed, respirations even and unlabored, no ll3 signs of distress noted at this time. 08:00 Reassessment: Patient appears in no apparent distress at this time. No changes from ll3 previously documented assessment. Vital Signs: 02:46 Pulse 76; Resp 18; Temp 97.9; Pulse Ox 96% on R/A; Pain 10/10; tw5 02:48 BP 172 / 86; Weight 83.91 kg; Height 5 ft. 2 in. (157.48 cm); tw5 03:21 BP 165 / 71; Pulse 65; Resp 18; Pulse Ox 96% on R/A; Pain 10/10; df1 03:30 BP 150 / 96; Pulse 76; Resp 18; Pulse Ox 93% on R/A; Pain 8/10; tw5 05:20 Pain 7/10; tw5 07:00 BP 150 / 96; Pulse 78; Resp 15; Pulse Ox 94% ; ll3 08:00 BP 164 / 84; Pulse 77; Resp 15; Pulse Ox 93% ; ll3 02:48 Body Mass Index 33.84 (83.91 kg, 157.48 cm) tw5 ED Course: 02:11 Patient arrived in ED. wm 02:21 Jose Salazar MD is Attending Physician. kdr 02:30 Shanell Cornelius is Primary Nurse. tw 02:[address] tw 02:44 Chem 7 Sent. tw 02:44 CBC with Diff Sent. 02:44 Initial lab(s) drawn, by ED staff, sent to lab. Inserted saline lock: 20 gauge in right tw5 antecubital area, using aseptic technique. Blood collected. 02:44 Patient has correct armband on for positive identification. Placed in gown. Bed in low tw5 position. Call light in reach. Side rails up X 1. monitoring and evaluation advisor on. Pulse ox on. NIBP on. Door closed. Noise minimized. Lights dimmed. Moved to private room. 02:46 Arm band placed on. tw 02:47 Triage completed. tw5 03:07 CT Head Brain wo Cont In Process Unspecified. EDMS 05:22 Assist provider with lumbar puncture: Set up LP tray. Performed by Jose Salazar MD tw5 Procedure unsuccessful. Patient tolerated well. 05:30 Raul Cole MD is Hospitalizing Provider. kdr 06:52 COVID-19 SARS RT PCR (Document "Date of Onset" if Symptomatic) Sent. tw5 08:39 Patient admitted, IV remains in place. intact, No redness/swelling at site. ll3 Administered Medications: 02:44 Drug: morphine 4 mg Route: IVP; Site: right antecubital; tw5 05:20 Follow up: Pain 7/10 Adult; Response: No adverse reaction; RASS: Alert and Calm (0) tw 02:44 Drug: Zofran (Ondansetron) 4 mg Route: IVP; Site: right antecubital; tw5 05:20 Follow up: Response: No adverse reaction 03:21 Drug: Reglan (metoCLOPramide) 10 mg Route: IVP; Site: right antecubital; df1 05:20 Follow up: Response: No adverse reaction 5 04:50 Drug: fentaNYL (PF) 50 mcg Route: IVP; Site: right antecubital; tw5 05:22 Follow up: Response: No adverse reaction; Pain is decreased; RASS: Alert and Calm (0) tw5 04:55 Drug: SOLU-Medrol (methylPrednisoLONE) 125 mg Route: IVP; Site: right antecubital; tw5 05:22 Follow up: Response: No adverse reaction tw5 Outcome: 05:33 Decision to Hospitalize by Provider. kdr 08:39 Admitted to Med/surg accompanied by tech, via stretcher, room 228, with chart, Report ll3 called to STEPHIE Tarango 08:39 Condition: stable 08:39 Discharge instructions given to patient, Instructed on the need for admit, Demonstrated understanding of instructions. 08:52 Patient left the ED. ll3 Signatures: Dispatcher [employer] EDMS Jose Salazar MD MD [facility] Danielle Sánchez Dawn df1 Shanell Cornelius tw5 Leonel Luque RN RN ll3
--- NOTE | 2021-04-16 05:33 | EDPHYS ---
Physician Documentation [facility] Name: Mariluz Smith Age: 60 yrs Sex: Female : 1960 Arrival Date: 04/16/2021 Time: 02:11 Bed 7 Private MD: ED Physician Jose Salazar HPI: 04/16 03:44 This 60 yrs old Female presents to ER via Wheelchair with complaints of kdr Headache, Worst Ever. 03:44 The patient complains of pain to the right frontal area, right temporal area, right kdr occipital area, right voodoo and right zygomatic area. The patient describes the headache as aching, constant, throbbing, unrelenting. Onset: The symptoms/episode began/occurred suddenly, just prior to arrival. Severity of symptoms: At its worst the pain was severe, incapacitating, the "worst in my life", in the emergency department the pain is unchanged. Headache History: The patient has had previous headaches and this one is more severe than previous episodes. The symptoms are alleviated by nothing. the symptoms are aggravated by lights, movement. Patient was recently admitted for hypertensive urgency and headache. She was discharged yesterday. She awoke this morning with acute pain on the right side of her face where it had been previously on the prior admission. She admitted to some nausea but no vomiting. The patient has been recently seen at the [facility] Emergency Department, The patient has been recently been admitted at [facility], was discharged yesterday. Historical: - Allergies: 02:45 Codeine; tw5 02:45 Latex, Natural Rubber; tw5 02:45 Milk; tw5 - Home Meds: 02:45 aspirin 81 mg Oral tab daily [Active]; atorvastatin 40 mg Oral tab 1 tab once daily tw5 [Active]; clonidine HCl 0.1 mg Oral tab 1 tab 4 times per day [Active]; Combigan 0.2-0.5 % ophthalmic drop 1 drop every 12 hours [Active]; metoprolol succinate 50 mg Oral CSpX 1 cap once daily [Active]; Prednisolone Opht [Active]; - PMHx: 02:45 Broken Neck; Glaucoma; TIA; tw5 - Immunization history:: Client reports receiving the 2nd dose of the Covid vaccine. - Social history:: Smoking status: Patient denies any tobacco usage or history of. ROS: 03:44 Constitutional: Negative for fever, chills, and weight loss, Eyes: Negative for injury, kdr pain, redness, and discharge, ENT: Negative for injury, pain, and discharge, Neck: Negative for injury, pain, and swelling, Cardiovascular: Negative for chest pain, palpitations, and edema, Respiratory: Negative for shortness of breath, cough, wheezing, and pleuritic chest pain, Abdomen/GI: Negative for abdominal pain, nausea, vomiting, diarrhea, and constipation, Back: Negative for injury and pain, : Negative for injury, bleeding, discharge, and swelling, MS/Extremity: Negative for injury and deformity, Skin: Negative for injury, rash, and discoloration, Psych: Negative for depression, anxiety, suicide ideation, homicidal ideation, and hallucinations, Allergy/Immunology: Negative for hives, rash, and allergies, Endocrine: Negative for neck swelling, polydipsia, polyuria, polyphagia, and marked weight changes, Hematologic/Lymphatic: Negative for swollen nodes, abnormal bleeding, and unusual bruising. 03:44 Neuro: Positive for headache, Negative for altered mental status, gait disturbance, hearing loss, loss of consciousness, seizure activity, speech changes, syncope, near syncope, tingling, visual changes, weakness. Exam: 03:44 Constitutional: This is a well developed, well nourished patient who is awake, alert, kdr and in moderate distress. Head/Face: Normocephalic, atraumatic. Eyes: Pupils equal round and reactive to light, extra-ocular motions intact. Lids and lashes normal. Conjunctiva and sclera are non-icteric and not injected. Cornea within normal limits. Periorbital areas with no swelling, redness, or edema. Neck: Trachea midline, no thyromegaly or masses palpated, and no cervical lymphadenopathy. Supple, full range of motion without nuchal rigidity, or vertebral point tenderness. No Meningismus. Chest/axilla: Normal chest wall appearance and motion. Nontender with no deformity. No lesions are appreciated. Cardiovascular: Regular rate and rhythm with a normal S1 and S2. No gallops, murmurs, or rubs. Normal PMI, no JVD. No pulse deficits. Respiratory: Lungs have equal breath sounds bilaterally, clear to auscultation and percussion. No rales, rhonchi or wheezes noted. No increased work of breathing, no retractions or nasal flaring. Abdomen/GI: Soft, non-tender, with normal bowel sounds. No distension or tympany. No guarding or rebound. No evidence of tenderness throughout. Back: No spinal tenderness. No costovertebral tenderness. Full range of motion. Skin: Warm, dry with normal turgor. Normal color with no rashes, no lesions, and no evidence of cellulitis. MS/ Extremity: Pulses equal, no cyanosis. Neurovascular intact. Full, normal range of motion. Neuro: Awake and alert, GCS 15, oriented to person, place, time, and situation. Cranial nerves II-XII grossly intact. Motor strength 5/5 in all extremities. Sensory grossly intact. Cerebellar exam normal. Normal gait. Psych: Awake, alert, with orientation to person, place and time. Behavior, mood, and affect are within normal limits. Vital Signs: 02:46 Pulse 76; Resp 18; Temp 97.9; Pulse Ox 96% on R/A; Pain 10/10; tw5 02:48 BP 172 / 86; Weight 83.91 kg; Height 5 ft. 2 in. (157.48 cm); tw5 03:21 BP 165 / 71; Pulse 65; Resp 18; Pulse Ox 96% on R/A; Pain 10/10; df1 03:30 BP 150 / 96; Pulse 76; Resp 18; Pulse Ox 93% on R/A; Pain 8/10; tw5 05:20 Pain 7/10; tw5 07:00 BP 150 / 96; Pulse 78; Resp 15; Pulse Ox 94% ; ll3 08:00 BP 164 / 84; Pulse 77; Resp 15; Pulse Ox 93% ; ll3 02:48 Body Mass Index 33.84 (83.91 kg, 157.48 cm) tw5 MDM: 03:44 Data reviewed: vital signs, nurses notes, lab test result(s), radiologic studies, CT kdr head negative per radiology. Counseling: I had a detailed discussion with the patient and/or guardian regarding: the historical points, exam findings, and any diagnostic results supporting the discharge/admit diagnosis, lab results, radiology results. 05:33 Patient medically screened. kdr 04/16 02:22 Order name: CBC with Diff; Complete Time: 04:17 kdr 04/16 02:22 Order name: Chem 7 kdr 04/16 04:24 Order name: ESR kdr 04/16 04:27 Order name: C-Reactive Protein EDMS 04/16 06:44 Order name: COVID-19 SARS RT PCR (Document "Date of Onset" if Symptomatic) df1 04/16 02:21 Order name: CT Head Brain wo Cont kdr 04/16 07:49 Order name: SARS-COV-2 RT PCR EDMS 04/16 04:25 Order name: Lumbar Puncture Setup; Complete Time: 04:46 kdr Administered Medications: 02:44 Drug: morphine 4 mg Route: IVP; Site: right antecubital; tw5 05:20 Follow up: Pain 11/29 Adult; Response: No adverse reaction; RASS: Alert and Calm (0) tw5 02:44 Drug: Zofran (Ondansetron) 4 mg Route: IVP; Site: right antecubital; tw5 05:20 Follow up: Response: No adverse reaction tw5 03:21 Drug: Reglan (metoCLOPramide) 10 mg Route: IVP; Site: right antecubital; df1 05:20 Follow up: Response: No adverse reaction tw5 04:50 Drug: fentaNYL (PF) 50 mcg Route: IVP; Site: right antecubital; tw5 05:22 Follow up: Response: No adverse reaction; Pain is decreased; RASS: Alert and Calm (0) tw5 04:55 Drug: SOLU-Medrol (methylPrednisoLONE) 125 mg Route: IVP; Site: right antecubital; tw5 05:22 Follow up: Response: No adverse reaction tw5 Disposition Summary: 04/16/21 05:33 Hospitalization Ordered Hospitalization Status: Observation kdr Provider: Raul Cole Location: Telemetry/MedSurg (observation) kdr Condition: Fair kdr Problem: an acute exacerbation kdr Symptoms: have improved kdr Bed/Room Type: Standard kdr Room Assignment: 228(04/16/21 08:27) em1 Diagnosis - Headache kdr Forms: - Medication Reconciliation Form kdr - SBAR form kdr Signatures: Dispatcher [employer] EDMS Jose Salazar MD MD kdr Rajesh Parsons em1 Joanie Whitten df1 Shanell Cornelius tw5 Corrections: (The following items were deleted from the chart) 04:27 04:25 C-REACTIVE PROTEIN+C.LAB.CHIPZ ordered. EDMS EDMS 08:27 05:33 kdr em1
--- NOTE | 2021-04-16 06:22 | P.HP ---
Certification for Inpatient Patient admitted to: Observation With expected LOS: <2 Midnights Patient will require the following post-hospital care: None Practitioner: I am a practitioner with admitting privileges, knowledge of patient current condition, hospital course, and medical plan of care. Services: Services provided to patient in accordance with Admission requirements found in Title 42 Section 412.3 of the Code of Federal Regulations Patient History Date of Service: 04/16/21 Reason for admission: headache History of Present Illness: Ms. Smith is a 60 yo F with CHF and HTN recently discharged 2 days ago for CHF exacerbation and mild pericardial effusion suspected sequelae from recent COVID 19 infection in November presents with worst headache of her life waking her up from her sleep. She says she woke up with a massive 10/10 R sided throbbing headache as well as pain in her neck and lutheran. Headache is worse with light, sound, and strong smells. No relief with tylenol, heat or cold packs. She also reports pain with chewing. She had this headache when she presented last time, but not nearly this severe. She says she thought it was triggered by her high BP. Before these two episodes, she has never had a headache like this before. She was discharged with new prescriptions of Lasix, prednisone and colchicine but has not had a chance to pick them up. Reports nausea, vomiting, dizziness. Denies lightheadedness, vision changes, fever, weight loss. LP was attempted in the ED wihtout success. Patient received solumedrol, fentanyl, morphine and zofran in the ED with no relief. CRP 4.51. CT HEAD SPINE IMPRESSION: Negative CT head examination for acute or significant finding. Cervical spine degenerative changes are present as detailed. No acute cervical spine finding. Allergies codeine Allergy (Verified 05/22/19 03:39) Anaphylaxis Latex, Natural Rubber Allergy (Verified 05/22/19 03:39) see comment milk Allergy (Verified 05/22/19 03:39) see comment Milk Containing Products Allergy (Verified 05/22/19 03:39) see comment Home Medications: Aspirin 81 mg PO DAILY 04/15/21 Atorvastatin Calcium 40 mg PO DAILY 04/15/21 Brimonidine Tartrate/Timolol [Combigan 0.2%-0.5% Eye Drops] 5 ml EACH EYE BID 04/15/21 Colchicine [Colcrys *] 0.6 mg PO BID 14 Days #28 tab 04/15/21 Furosemide [Lasix] 40 mg PO BID 30 Days #60 tablet 04/15/21 Metoprolol Tartrate [Lopressor*] 25 mg PO BID 6AM 6PM tab 04/15/21 Potassium Chloride [Klor-Con 10] 10 meq PO DAILY 14 Days #14 tablet.er 04/15/21 Sertraline [Zoloft] 0.5 tab PO DAILY 60 Days #30 tab 04/15/21 lisinopriL [Prinivil*] 5 mg PO DAILY 30 Days #30 tab 04/15/21 predniSONE [Deltasone*] 10 mg PO BID 14 Days #28 tab 04/15/21 - Past Medical/Surgical History Diabetic: Yes -: cataracts -: macular degeneration -: neck fx -: Hypertension -: Chronic diastolic congestive heart failure -: TIA -: cataract surgery bilateral eyes -: neck sx -: finger sx Psychosocial/ Personal History: Patient lives at home, cares for her 2 grandchildren - Family History Mother -: Stroke Father -: Heart disease, Hypertension - Social History Smoking Status: Former smoker Alcohol use: No CD- Drugs: No Caffeine use: No Place of Residence: Home Review of Systems 10-point ROS is otherwise unremarkable General: Unremarkable Eyes: Unremarkable ENT: Unremarkable Respiratory: Unremarkable Cardiovascular: Light Headedness Gastrointestinal: Nausea, Vomiting Genitourinary: Unremarkable Musculoskeletal: Neck Pain Integumentary: Unremarkable Neurological: Unremarkable Lymphatics: Unremarkable Physical Examination - Physical Exam General: Alert, In no apparent distress HEENT: Atraumatic, PERRLA, Mucous membr. moist/pink, EOMI, Sclerae nonicteric Neck: Supple, 2+ carotid pulse no bruit, No LAD, Without JVD or thyroid abnormality Respiratory: Clear to auscultation bilaterally, Normal air movement Cardiovascular: Regular rate/rhythm, Normal S1 S2 Gastrointestinal: Normal bowel sounds, No tenderness Musculoskeletal: No tenderness Integumentary: Skin breakdown, Tenderness/swelling Neurological: Normal speech, Normal strength at 5/5 x4 extr, Normal tone, Sensation intact, Normal affect Lymphatics: No axilla or inguinal lymphadenopathy - Studies Laboratory Data (last 24 hrs) 04/16/21 02:40: Sodium 141, Potassium 3.5, BUN 26 H, Creatinine 0.93, Glucose 138 H 04/16/21 02:40: WBC 6.30, Hgb 11.5 L, Hct 33.7 L, Plt Count 247 Assessment and Plan - Problems (Diagnosis) (1) CHF (congestive heart failure) Current Visit: Yes Status: Chronic Qualifiers: Heart failure type: unspecified Heart failure chronicity: chronic Qualified Code(s): I50.9 - Heart failure, unspecified (2) HTN (hypertension) Current Visit: Yes Status: Chronic Qualifiers: Hypertension type: primary hypertension Qualified Code(s): I10 - Essential (primary) hypertension (3) Headache Current Visit: Yes Status: Acute Qualifiers: Headache type: unspecified Headache chronicity pattern: acute headache Intractability: intractable Qualified Code(s): R51.9 - Headache, unspecified (4) UTI (urinary tract infection) Current Visit: Yes Status: Acute Qualifiers: Urinary tract infection type: site unspecified Hematuria presence: with hematuria Qualified Code(s): N39.0 - Urinary tract infection, site not specified; R31.9 - Hematuria, unspecified - Plan plan for US guided LP in the AM continue pain management as needed, will consider migraine treatment continue daily weights and fluid restriction continue to monitor BP, hydralazine PRN for BP spikes monitor blood glucose, A1c pending continue IV ceftriaxone, urine culture and blood culture pending wound care consulted continue home medications Discharge Plan: Home Plan to discharge in: 24 Hours - Advance Directives Does patient have a Living Will: No Does patient have a Durable POA for Healthcare: No - Code Status/Comfort Care Code Status Assessed: Yes (full code ) Critical Care: No Time Spent Managing Pts Care (In Minutes): 70
[2021-04-16] MEDS ORDERED: ASPIRIN 81 MG CHEWABLE TABLET PO SCH (09:12)
[2021-04-16] MEDS ORDERED: MORPHINE 2 MG/ML SYR IV PRN (09:12)
[2021-04-16] MEDS ORDERED: HYDRALAZINE HCL 20 MG/ML VIAL IV PRN (09:12)
[2021-04-16] MEDS: INSULIN -REGULAR HUMAN 50 UNIT/0.5 ML ML SQ SCH ×5 (09:12→21:00)
[2021-04-16] MEDS ORDERED: ENOXAPARIN 40 MG/0.4 ML SQ SCH (10:00)
[2021-04-16] MEDS ORDERED: ACETAMINOPHEN 500 MG TAB PO ONE (10:00)
[2021-04-16] MEDS: COLCHICINE 0.6 MG TAB PO SCH ×2 (10:56→20:56)
[2021-04-16] MEDS: ATORVASTATIN 40 MG TAB PO SCH (10:56)
[2021-04-16] MEDS: SERTRALINE HCL 50 MG TAB PO SCH (10:57)
[2021-04-16] MEDS: FUROSEMIDE 40 MG TABLET PO SCH ×2 (10:57→17:40)
[2021-04-16] MEDS: lisinopriL 5 MG TAB PO SCH (10:57)
[2021-04-16] MEDS: predniSONE 10 MG TAB PO SCH ×2 (10:58→20:56)
[2021-04-16] MEDS: CEFTRIAXONE 1,000 MG in NA CHLORIDE 0.9% 50 ML IVPB SCH (11:00)
[2021-04-16] MEDS: METOPROLOL TAR 25 MG TAB PO SCH ×2 (11:03→17:40)
[2021-04-16] MEDS: ACETAMINOPHEN 500 MG TAB PO PRN ×2 (11:10→23:58)
[2021-04-16 20:11] LABS: Urine Appearance Clear (Clear); Urine Bilirubin Negative (Negative); Urine Blood 2+ (Negative); Urine Color Yellow (Yellow); Urine Glucose Trace (Negative); Urine Protein 3+ (Negative); Urine Specific Gravity 1.025 (1.005-1.030); Urine Urobilinogen 0.2 mg/dL (0.2-1.0)
[2021-04-16 20:24] LABS: Urine Microscopic Reflex ORDER UMIC
[2021-04-16 20:26] LABS: Urine Amorphous Sediment 1+ /HPF (NONE SEEN); Urine Bacteria <20 /HPF (<20); Urine RBC <5 /HPF (NONE SEEN)
[2021-04-17] MEDS: ONDANSETRON 4 MG/2 ML VIAL IV PRN (00:47)
[2021-04-17] MEDS: METOPROLOL TAR 25 MG TAB PO SCH ×2 (05:03→16:57)
[2021-04-17] MEDS: ACETAMINOPHEN 500 MG TAB PO PRN ×4 (05:56→20:58)
[2021-04-17 06:10] LABS: Basophils % 0.5 % (0-1.3); Hematocrit 32.1 % (36.0-45.0); Lymphocytes % 13.4 % (15.3-44.8); MPV 8.6 fL (7.6-11.3); RBC Red Blood Cell Count 3.65 M/uL (3.86-4.86)
[2021-04-17 06:27] VITALS: BMI 33.8
[2021-04-17 06:37] LABS: Albumin 2.7 g/dL (3.4-5.0); Bilirubin Total 0.3 mg/dL (0.2-1.0); Magnesium 2.2 mg/dL (1.8-2.4); Phosphorus 3.7 mg/dL (2.5-4.9); Potassium 3.8 mmol/L (3.5-5.1); Protein, Total 5.7 g/dL (6.4-8.2); Thyroid Stimulating Hormone 1.32 uIU/mL (0.360-3.740)
[2021-04-17] MEDS: INSULIN -REGULAR HUMAN 50 UNIT/0.5 ML ML SQ SCH ×4 (07:30→20:59)
[2021-04-17] MEDS ORDERED: PNEUMOCOCCAL VACCINE 0.5 ML IMVAC ONE (08:00)
[2021-04-17] MEDS ORDERED: INFLUENZA VACCINE (for 6+ mo) 0.5 ML DOSE IMVAC ONE (08:00)
[2021-04-17] MEDS: ATORVASTATIN 40 MG TAB PO SCH (08:43)
[2021-04-17] MEDS: COLCHICINE 0.6 MG TAB PO SCH ×2 (08:43→20:57)
[2021-04-17] MEDS: lisinopriL 5 MG TAB PO SCH (08:43)
[2021-04-17] MEDS: predniSONE 10 MG TAB PO SCH ×2 (08:43→20:58)
[2021-04-17] MEDS: SERTRALINE HCL 50 MG TAB PO SCH (08:44)
[2021-04-17] MEDS: FUROSEMIDE 40 MG TABLET PO SCH ×2 (08:44→16:57)
[2021-04-17] MEDS ORDERED: POTASSIUM CL SA 10 MEQ TAB PO ONE (09:00)
[2021-04-17] MEDS: CEFTRIAXONE 1,000 MG in NA CHLORIDE 0.9% 50 ML IVPB SCH (10:14)
--- NOTE | 2021-04-17 12:18 | P.PN ---
Subjective Date of Service: 04/17/21 Chief Complaint: headache looks great, but she is anxious, she does not believe she is doing well, she had PEMBERTON last night, mild today, she have no CP or or abd pain, she is worried about her BP Physical Examination - Vital Signs Temperature: 97.4 F Blood Pressure: 145/87 Pulse: 81 Respirations: 18 Pulse Ox (%): 95 Assessment & Plan Physician Review Additional Text: General: Alert, In no apparent distress HEENT: Atraumatic, PERRLA, Mucous membr. moist/pink, EOMI, Sclerae nonicteric Neck: Supple, 2+ carotid pulse no bruit, No LAD, Without JVD or thyroid abnormality Respiratory: Clear to auscultation bilaterally, Normal air movement Cardiovascular: Regular rate/rhythm, Normal S1 S2 Gastrointestinal: Normal bowel sounds, No tenderness Musculoskeletal: No tenderness Integumentary: Skin breakdown, Tenderness/swelling Neurological: Normal speech, Normal strength at 5/5 x4 extr, Normal tone, Sensation intact, Normal affect Lymphatics: No axilla or inguinal lymphadenopathy ASSESSMENT AND PLAN -UTI, -UA was neg, DC ceftriaxone Headache -Etiology ? BP, CT neg, Neurology consult pending also Lumbar puncture, since pt was on ASA and lovenox, IR will do it on tuesday if needed , I am hoping Neurology clear pt for DC and do work up for PEMBERTON as outpt HTN -borderline controlled, will cont PRN hydralzine , also lisinopril and BB Anxiety -will start pt on Ativan prn Q 12 hour DVT Prophylaxis off lovenox for procedure will advise to ambulate Anemia -mild obs Hyperglycemia, will check HGBA1c, start ISS low Hx of CHF -cardiology consult pending
[2021-04-17] MEDS: LORAZEPAM 0.5 MG TABLET PO SCH (13:35)
--- NOTE | 2021-04-17 13:48 | RAD REPORT ---
EXAM DESCRIPTION: CT - Head Brain Wo Cont - 04/16/2021 6:47 am COMPARISON: CT head April 14, 2021 CLINICAL HISTORY: [facility] MAIN HEADACHE TECHNIQUE: Axial images were obtained from skull base to vertex without intravenous contrast. Imag es viewed on bone and brain windows. Multiplanar reformats were performed. Automated exposure contr ol was utilized on this examination as a dose lowering technique. FINDINGS: Brain parenchyma, ventricles, dura, meninges, and extra-axial spaces: Mild generalized cer ebral and cerebellar volume loss is present. Mild hypodensities in the subcortical white matter of naz th hemispheres are nonspecific but likely relate to chronic small vessel disease. No acute intracrani al hemorrhage or abnormal extra-axial fluid collections. Vascular structures: No hyperdense arteries or veins. Calvarium, mastoid air cells, paranasal sinuses and orbits: The calvarium is normal. The mastoid air cells are clear. Visualized paranasal sinuses are unremarkable. Orbital structures are unremarkable. IMPRESSION: 1. No acute intracranial abnormality. 2. Mild senescent changes. Electronically signed by: Scar Guan MD 04/16/2021 3:59 AM SIGNAL CONSTRUCTOR Due to temporary technical issues with the PACS/Fluency reporting system, reports are being signed by the in house radiologists without review as a courtesy to insure prompt reporting. The interpreting radiologist is fully responsible for the content of the report.
--- NOTE | 2021-04-17 16:18 | CON ---
Date of Consultation: 04/17/2021 Reason For Consultation: CHF. History Of Present Illness: This is a 60-year-old female who has CHF and hypertension, discharged re cently for CHF exacerbation. She had COVID-19 infection in 2020 in November, was complaining of having s ome numbness involving her left upper extremity and left lower extremity. Denies having any chest pa in. No significant shortness of breath, but she has significant lower extremity edema. Past Medical History: As outlined above in the HPI. Medications: Refer to reconciliation sheet for detailed list. Allergies: ALLERGY LIST FURTHER REVIEWED. Family History: No premature coronary artery disease or cancer. Social History: She is an ex-smoker. Does not drink, use any drugs. Review of Systems: All systems reviewed and they were negative except for mentioned in HPI. Physical Examination: Vital Signs: Reviewed. Blood pressure is 145/87, temperature is 97.4, heart rate is 81, breathing a t 18. General: Pleasant middle-aged female, in no apparent distress. Head and Neck: Pupils are equal, reactive to light. Intact eye movements. No JVD. No cervical lym phadenopathy. Neck: Supple. Thyroid is not enlarged. Lungs: Clear to auscultation bilaterally. No rhonchi, rales, or crackles. No accessory muscle use. Heart: Regular rate and rhythm. No extra sounds. Abdomen: Soft, nontender. Bowel sounds positive. No organomegaly. No masses or hernia. No rigidi ty or rebound. Extremities: Edema bilaterally with chronic stasis changes. Neurologic: Alert, awake, and oriented x3. No acute focal deficits appreciated. Lymph Nodes: No cervical or axillary lymphadenopathy. Investigations: Hemoglobin 10.8, total white blood cell count is 7.8, creatinine 1.01. Assessment And Recommendations: 1.Lower extremity edema. Reports of congestive heart failure. Please obtain echocardiogram, diures is with Lasix 40 mg q.12 hours, IV with care for monitoring of her BUN, creatinine, electrolytes, pen ding echo results. 2.Loud carotid bruit bilaterally. She complains of numbness of her left side. I will recommend to obtain carotid Doppler bilaterally and to determine the need for carotid angiogram. Thank you for the consult. /MODL Voice ID: [id number] Report ID: [id number]
--- NOTE | 2021-04-17 20:24 | CON ---
Reason For Consultation: Consultation called because of severe headache. History Of Present Illness: Ms. Smith is a 60-year-old right-handed patient with history of glaucoma, transient ischemic attack, who said she woke up day prior to her hospitalization with a worse headache of her life involving the right temporal frontal area, did move to the occipital regio n as well. The headache is constant, throbbing, 10/10, and describing as worse headache of her life. None of the regular medications would help. Her head CT scan revealed no acute ischemic or hemorrh agic findings. There are mild small-vessel ischemic disease changes. 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 These are listening devices and would apparently hear what she is saying. She says some of the devices perhaps still require direct plugging into electrical ou tlets, and she has reportedly contacted local police concerning the potential of these "bugs." In any event, she has been very stressed and anxious, worried about this and which may be playing a factor in her headaches. At [facility], she has received Ativan, Tylenol Extra Strength, which alondra ears to be making an impact in her headaches. At the time of my evaluation, the headache was non-exi stent, was 0/10, and she was getting the Tylenol as needed every 4 to 6 hours. Past Medical History: Glaucoma, hypertension, dyslipidemia, and reported cervical disk herniation an d transient ischemic attack. Allergies: CODEINE, LATEX, MILK. Medications: At home, aspirin 81 mg daily, atorvastatin 40 mg daily, clonidine 0.1 mg 4 times daily, Combigan ophthalmic drop every 12 hours, metoprolol 50 mg daily. Social History: Denies alcohol, tobacco, or IV drug use. Family History: Noncontributory. Review of Systems: She reports stress as indicated and worried about being "bugged." She seems nervous, anxious, worried . Otherwise, cranial nerves, no deficits on 2 through 12 and in general the motor examination is 5/5 proximally and distally. Sensory exam intact to light touch, temperature in arms and legs. Coordin ation intact in upper and lower extremities. Gait, she has good stance and stride. No difficulty wi th balance and coordination and her general exam is also unremarkable. Laboratory Studies: Complete blood count with differential shows a slightly low hemoglobin of 10.8, otherwise essentially unremarkable. Her basic metabolic panel shows elevated glucose ranging up to 2 13. Hemoglobin A1c 6.5, creatinine 1.08. Liver function studies unremarkable. LDL cholesterol 39, HDL 45, TSH 1.30. Urinalysis; 2+ blood, trace ketones, 3+ protein. COVID-19 test is negative. Assessment: Ms. Smith is a 60-year-old patient with significant social stressors. She has evidence of some paranoid ideation and thinking with believing her house is bugged, but she is also stressed about her family and social situation. She has significant headaches that are currently improving wi th [id number] medications and medication for anxiety. Be that as it may, she does have stroke risk factors as noted with diabetes mellitus, hypertension, and should be on aspirin, folic acid, and management of her blood pressure. Plan: 1.Please continue medications as indicated for hypertension, stroke risk reduction, management of di abetes mellitus. 2.May consider Topamax mg at night if headaches return, otherwise extra-strength Tylenol and taper off Ativan as soon as possible. The patient may be discharged home and follow up with Dr. Montano in clinic within a month. SHAUNA/ROMAINE Voice ID: [id number] Report ID: [id number]
[2021-04-18] MEDS: LORAZEPAM 0.5 MG TABLET PO SCH ×2 (00:29→11:41)
[2021-04-18] MEDS: HYDRALAZINE HCL 20 MG/ML VIAL IV PRN ×2 (04:36→11:41)
[2021-04-18] MEDS: ONDANSETRON 4 MG/2 ML VIAL IV PRN (06:05)
[2021-04-18] MEDS: METOPROLOL TAR 25 MG TAB PO SCH ×2 (06:05→17:05)
[2021-04-18] MEDS: ACETAMINOPHEN 500 MG TAB PO PRN ×3 (06:25→21:44)
[2021-04-18] MEDS: INSULIN -REGULAR HUMAN 50 UNIT/0.5 ML ML SQ SCH ×4 (07:30→21:00)
[2021-04-18] MEDS: COLCHICINE 0.6 MG TAB PO SCH (08:56)
[2021-04-18] MEDS: lisinopriL 5 MG TAB PO SCH (08:56)
[2021-04-18] MEDS: SERTRALINE HCL 50 MG TAB PO SCH (08:56)
[2021-04-18] MEDS: ATORVASTATIN 40 MG TAB PO SCH (08:57)
[2021-04-18] MEDS: FUROSEMIDE 40 MG TABLET PO SCH (08:57)
[2021-04-18] MEDS: predniSONE 10 MG TAB PO SCH ×2 (08:57→21:33)
--- NOTE | 2021-04-18 11:33 | P.PN ---
Subjective Date of Service: 04/18/21 Chief Complaint: headache looks great, still anxious, she seen neuro and cardiology, she had [place] last night again, she have no CP or or abd pain, she is worried about her BP Physical Examination - Vital Signs Temperature: 97.1 F Blood Pressure: 100/67 Pulse: 98 Respirations: 16 Pulse Ox (%): 95 Assessment & Plan Physician Review Additional Text: General: Alert, In no apparent distress HEENT: Atraumatic, PERRLA, Mucous membr. moist/pink, EOMI, Sclerae nonicteric Neck: Supple, 2+ carotid pulse no bruit, No LAD, Without JVD or thyroid abnormality Respiratory: Clear to auscultation bilaterally, Normal air movement Cardiovascular: Regular rate/rhythm, Normal S1 S2 Gastrointestinal: Normal bowel sounds, No tenderness Musculoskeletal: No tenderness Integumentary: Skin breakdown, Tenderness/swelling Neurological: Normal speech, Normal strength at 5/5 x4 extr, Normal tone, Sensation intact, Normal affect Lymphatics: No axilla or inguinal lymphadenopathy ASSESSMENT AND PLAN UTI, -UA was neg, off ceftriaxone Headache -Etiology ? BP, CT neg, Neurology consult noted, will DC LP at this point and start topomax at 250 mg per neuro, discussed wtih Dr stephen , he will see pt in one month after DC HTN -borderline controlled, will cont PRN hydralzine , also lisinopril and BB Anxiety -will cont pt on Ativan prn Q 12 hour DVT Prophylaxis resume lovenox Anemia -mild obs, no CBC today Hyperglycemia, -HBA1c 6.4m , cont ISS, pt will need oral meds as outpt Hx of CHF -change lasix to 40 mg IV BID per cardio, check echo and carotid doppler give pt left upper ext number ? orders and will not be done till tuesday
--- NOTE | 2021-04-18 15:48 | PN ---
Date of Progress Note: 04/18/2021 Subjective: Seen at bedside. She is improving slowly. Review of Systems: No chest pain, shortness of breath, orthopnea, cough, nausea, vomiting, or diarrhea. No abdominal pa in. No dysuria, polyuria, or urinary urgency. All other systems were reviewed and are negative. Physical Examination: Vital Signs: Reviewed. Head and Neck: Pupils are equal and reactive to light. Intact eye movements. No JVD. No cervical lymphadenopathy. Neck: Supple. Thyroid is not enlarged. She has a significant bilateral carotid bruits. Heart: Regular rate and rhythm. No extra sounds. Abdomen: Soft, nontender. Bowel sounds positive. No organomegaly. No masses or hernia. No rigidi ty or rebound. Extremities: No clubbing or cyanosis. She has 2 to 3+ pedal edema with chronic skin changes. Neurologic: Alert, awake, and oriented x3. No acute focal deficits appreciated. Investigations: Labs were reviewed. Assessment And Recommendations: 1.Congestive heart failure, improving. Continue diuretics carefully. Monitor BUN, creatinine, and electrolytes and obtain echocardiogram when feasible. 2.Carotid stenosis on physical exam. Await carotid Doppler. SR/MODL Voice ID: [id number] Report ID: [id number]
[2021-04-18] MEDS: FUROSEMIDE 40 MG/4 ML VIAL IV SCH (17:05)
[2021-04-18] MEDS: ENOXAPARIN 40 MG/0.4 ML SQ SCH (17:05)
--- NOTE | 2021-04-18 19:09 | RAD REPORT ---
EXAM DESCRIPTION: US - CP - 04/18/2021 6:16 pm CLINICAL HISTORY: numbness in left upper ext COMPARISON: Head C Spine Mpr Wo Con dated 04/14/2021; Neck Angio dated 05/22/2019; MRA Neck W/Wo Con t dated 05/22/2019 TECHNIQUE: Real-time sonographic evaluation of both carotid systems was performed. Doppler interroga tion was performed with waveform tracing bilaterally. FINDINGS: Normal high resistant waveforms are seen within the right carotid system and vertebral art eries. There is elevated velocities in the left common carotid artery, left internal carotid artery, and left external carotid artery. Calcified plaque at the right and left carotid bulbs and in the proximal and mid left common carotid artery. Elevated peak systolic velocity. Elevated velocities present within the left common carotid a nd internal carotid artery. There is a moderate stenosis of the left proximal ICA. There is notable p laque in the left common carotid artery as well but without hemodynamically significant stenosis. Antegrade flow seen in both vertebral arteries. IMPRESSION: Moderate stenosis suspected at the proximal left common carotid artery. There is also a moderate stenosis at the left proximal ICA. Prominent noncalcified plaque within the left carotid sys tem.
[2021-04-18] MEDS: TOPIRAMATE 100 MG TAB PO SCH (21:00)
[2021-04-19] MEDS: LORAZEPAM 0.5 MG TABLET PO SCH ×2 (00:21→15:41)
[2021-04-19 03:33] LABS: Absolute Lymphocytes (CBC) 1.2 K/uL (0.7-4.9); Basophils % 0.9 % (0-1.3); Lymphocytes % 16.8 % (15.3-44.8); MPV 8.9 fL (7.6-11.3); RBC Red Blood Cell Count 3.95 M/uL (3.86-4.86)
[2021-04-19 03:45] LABS: Albumin 2.6 g/dL (3.4-5.0); Bilirubin Total 0.2 mg/dL (0.2-1.0); Protein, Total 5.8 g/dL (6.4-8.2)
[2021-04-19] MEDS: METOPROLOL TAR 25 MG TAB PO SCH ×2 (05:58→17:09)
[2021-04-19] MEDS: INSULIN -REGULAR HUMAN 50 UNIT/0.5 ML ML SQ SCH ×4 (07:30→21:00)
[2021-04-19] MEDS: FUROSEMIDE 40 MG/4 ML VIAL IV SCH (10:01)
[2021-04-19] MEDS: lisinopriL 5 MG TAB PO SCH (10:02)
[2021-04-19] MEDS: ASPIRIN EC 81 MG TAB PO SCH (10:02)
[2021-04-19] MEDS: ATORVASTATIN 40 MG TAB PO SCH (10:02)
[2021-04-19] MEDS: SERTRALINE HCL 50 MG TAB PO SCH (10:02)
[2021-04-19] MEDS: predniSONE 10 MG TAB PO SCH ×2 (10:02→21:14)
--- NOTE | 2021-04-19 10:14 | P.PN ---
Subjective Date of Service: 04/19/21 Chief Complaint: headache looks great, still anxious, she seen neuro and cardiology on tuesday, no [place] last night, she have no CP or or abd pain, she is worriedoabout her left upper ext occasional numbness Physical Examination - Vital Signs Temperature: 97 F Blood Pressure: 128/68 Pulse: 75 Respirations: 16 Pulse Ox (%): 95 Assessment & Plan Physician Review Additional Text: General: Alert, In no apparent distress HEENT: Atraumatic, PERRLA, Mucous membr. moist/pink, EOMI, Sclerae nonicteric Neck: Supple, 2+ carotid pulse no bruit, No LAD, Without JVD or thyroid abnormality Respiratory: Clear to auscultation bilaterally, Normal air movement Cardiovascular: Regular rate/rhythm, Normal S1 S2 Gastrointestinal: Normal bowel sounds, No tenderness Musculoskeletal: No tenderness Integumentary: Skin breakdown, Tenderness/swelling Neurological: Normal speech, Normal strength at 5/5 x4 extr, Normal tone, Sensation intact, Normal affect Lymphatics: No axilla or inguinal lymphadenopathy ASSESSMENT AND PLAN UTI, -UA was neg, DC ceftriaxone after admissinoo Headache -resolved last night, Etiology ? BP, CT neg, Neurology consult noted, will DC LP at this point and topomax started yesterdat at 200 mg per neuro, discussed wtih Dr stephen , he will see pt in one month after DC HTN -better controlled, will cont PRN hydralzine , also lisinopril and BB Anxiety -will cont pt on Ativan prn Q 12 hour DVT Prophylaxis Cont lovenox Anemia -better today at 11.3, mild obs, Hyperglycemia, -HBA1c 6.4m , Glucose below 200, cont ISS, pt will need oral meds as outpt, Hx of CHF -BUN up, will change lasix to oral, check echo and carotid doppler give pt left upper ext number ? orders and will not be done till tuesday DC plan maybe in AM depend on echo and carotid doppler results , clear for DC by Neuro
--- NOTE | 2021-04-19 13:18 | PN ---
Date of Progress Note: 04/19/2021 Subjective: Seen at bedside, doing well. Lower extremity edema is much better. Still complaining o f some tingling of left upper extremity. Review of Systems: All other systems reviewed are negative. Physical Examination: Vital Signs: Reviewed. Head and Neck: Pupils are equal, reactive to light. Intact eye movements. No JVD. She has bilater al carotid bruits. Heart: Regular rate and rhythm. No extra sounds. Abdomen: Soft, nontender. Bowel sounds positive. No organomegaly. No masses or hernia. No rigidi ty or rebound. Extremities: No clubbing or cyanosis. 2+ edema with improvement. Neuro: Alert, awake, oriented x3. No acute focal deficits appreciated. Investigations: Hemoglobin is 11.3, white blood cell count 6.9. BUN 39, creatinine 1.1. Assessment And Recommendations: 1.Congestive heart failure. She is on oral Lasix now and doing much better. Await on echo. 2.Bilateral carotid bruits. Carotid ultrasound was obtained yesterday showed that there was moderat e stenosis suspected at the proximal left common carotid artery and left internal carotid artery. I would recommend a carotid angiogram, which can be done as an outpatient to further quantify the amoun t of stenosis. Otherwise, from my perspective, the patient can be released to home and an echo can be done as an out patient. /ROMAINE Voice ID: [id number] Report ID: [id number]
[2021-04-19] MEDS: FUROSEMIDE 40 MG TABLET PO SCH (17:09)
[2021-04-19] MEDS: ENOXAPARIN 40 MG/0.4 ML SQ SCH (17:18)
[2021-04-19] MEDS: TOPIRAMATE 100 MG TAB PO SCH (21:00)
[2021-04-20] MEDS: LORAZEPAM 0.5 MG TABLET PO SCH (00:36)
[2021-04-20] MEDS: METOPROLOL TAR 25 MG TAB PO SCH (06:14)
[2021-04-20] MEDS: INSULIN -REGULAR HUMAN 50 UNIT/0.5 ML ML SQ SCH (07:30)
[2021-04-20 08:24] VITALS: BP 160/81; TEMP 97.7
[2021-04-20] MEDS: lisinopriL 5 MG TAB PO SCH (09:50)
[2021-04-20] MEDS: FUROSEMIDE 40 MG TABLET PO SCH (09:51)
[2021-04-20] MEDS: ATORVASTATIN 40 MG TAB PO SCH (09:51)
[2021-04-20] MEDS: ASPIRIN EC 81 MG TAB PO SCH (09:51)
[2021-04-20] MEDS: SERTRALINE HCL 50 MG TAB PO SCH (09:51)
[2021-04-20] MEDS: predniSONE 10 MG TAB PO SCH (09:52)
[2021-04-20 09:56] VITALS: O2SAT 98
== END 2021-04-20 10:20 | disposition home or self-care (01) | DRG 103 ==
LOC: ER 02:05 → ERHOLD 05:55 → 2ND 08:41 → OBSVTOIN 04-18 12:17
PROVIDERS: ADMIT Internal Medicine; ATTEND Hospitalist
DX: G43.919 Migraine, unspecified, intractable, without status migrainosus (principal); I50.32 Chronic diastolic (congestive) heart failure; I11.0 Hypertensive heart disease with heart failure; F60.0 Paranoid personality disorder; E11.65 Type 2 diabetes mellitus with hyperglycemia; D64.9 Anemia, unspecified; E78.5 Hyperlipidemia, unspecified; I65.22 Occlusion and stenosis of left carotid artery; F41.9 Anxiety disorder, unspecified; Z91.040 Latex allergy status; Z91.011 Allergy to milk products; Z79.82 Long term (current) use of aspirin; Z88.5 Allergy status to narcotic agent; Z79.899 Other long term (current) drug therapy; Z86.16 Personal history of COVID-19; Z86.73 Personal history of transient ischemic attack (TIA), and cerebral infarction without residual deficits; Z87.891 Personal history of nicotine dependence; Z20.822 Contact with and (suspected) exposure to COVID-19
CPT/HCPCS: 36415; 62270; 70450; 71045; 72125; 80048; 80053; 80061; 80076; 81003; 81015; 82947; 83036; 83735; 83880; 84100; 84132; 84145; 84439; 84443; 84484; 85025; 85610; 85652; 86140; 87086; 87088; 93005; 93306; 93880; 94760; 96374; 96375; 97162; 99285; G0378; J0360; J1650; J1940; J2405; J2765; J2930; J3010; J7512; U0003

== ENCOUNTER 2021-07-23 17:57 | Inpatient (IN) | payer OTHER ==
[2021-07-23 21:21] LABS: Absolute Lymphocytes (CBC) 1.5 K/uL (0.7-4.9); Hematocrit 34.2 % (36.0-45.0); Lymphocytes % 25.7 % (15.3-44.8); MPV 8.2 fL (7.6-11.3); RBC Red Blood Cell Count 3.95 M/uL (3.86-4.86)
[2021-07-23 21:25] LABS: Protime INR 1.06
[2021-07-23 21:41] LABS: Albumin 2.7 g/dL (3.4-5.0); Bilirubin Direct 0.2 mg/dL (0-0.2); Bilirubin Total 0.5 mg/dL (0.2-1.0); Potassium 4.1 mmol/L (3.5-5.1); Protein, Total 6.2 g/dL (6.4-8.2); Troponin High Sensitivity 13.8 pg/mL (<58.9)
[2021-07-23 21:42] LABS: Magnesium 2.3 mg/dL (1.8-2.4)
--- NOTE | 2021-07-23 22:06 | RAD REPORT ---
EXAM DESCRIPTION: RAD - Chest Single View - 07/23/2021 9:28 pm CLINICAL HISTORY: DYSPNEA COMPARISON: Portable 04/14/2021 TECHNIQUE: AP portable chest image was obtained 07/23/2021 9:28 pm . FINDINGS: Lung volumes are low. Interstitial markings are prominent similar to comparison. Hazy opac ification blunts the right costophrenic angle and partially obscures the right hemidiaphragm. This is probably pleural fluid and lung base atelectasis. This is similar to comparison. Heart size is promi nent. Upper lobe vasculature not outside of normal range. No pneumothorax. No acute bony abnormality seen. No acute aortic findings suspected. IMPRESSION: Right pleural effusion and atelectasis are evident similar to comparison. Interstitial markings are prominent. Mild failure or volume overload is possible. Findings are slight ly less prominent than seen on the comparison.
--- NOTE | 2021-07-23 23:03 | ER ---
Nurse's Notes [facility] Name: Mariluz Smith Age: 61 yrs Sex: Female : 1960 Arrival Date: 07/23/2021 Time: 18:06 Bed 28 Private MD: Diagnosis: Acute on chronic systolic (congestive) heart failure Presentation: 07/23 18:12 Chief complaint: Patient states: SOB, fluid overload, distended abdomen, both legs ll1 swelling for at least [address] in by Dr[address] Lizarraga. Coronavirus screen: Vaccine status: Patient reports receiving the 2nd dose of the covid vaccine. Client denies travel out of the [place] in the last 14 days. At this time, the client does not indicate any symptoms associated with coronavirus-19. Ebola Screen: Patient denies travel to an Ebola-affected area in the 21 days before illness onset. Initial Sepsis Screen: Does the patient meet any 2 criteria? No. Patient's initial sepsis screen is negative. Does the patient have a suspected source of infection? No. Patient's initial sepsis screen is negative. Risk Assessment: Do you want to hurt yourself or someone else? Patient reports no desire to harm self or others. Onset of symptoms was July 17, 2021. 18:12 Method Of Arrival: Wheelchair ll1 18:12 Acuity: RACHANA 3 ll1 Historical: - Allergies: 18:13 Codeine; ll1 18:13 Latex, Natural Rubber; ll1 18:13 Milk; ll1 - Home Meds: 07/24 02:13 aspirin 81 mg Oral tab daily [Active]; atorvastatin 40 mg Oral tab 1 tab once daily sm5 [Active]; metoprolol succinate 50 mg Oral CSpX 1 cap once daily [Active]; clonidine HCl 0.1 mg Oral tab 1 tab 4 times per day [Active]; Combigan 0.2-0.5 % ophthalmic drop 1 drop every 12 hours [Active]; Prednisolone Opht [Active]; - PMHx: 07/23 18:13 Broken Neck; Glaucoma; TIA; ll1 - PSHx: 18:13 None; ll1 - Immunization history:: Client reports receiving the 2nd dose of the Covid vaccine, Flu vaccine status is unknown. - Social history:: Smoking status: Patient denies any tobacco usage or history of. Screenin:31 Abuse screen: Denies threats or abuse. Denies injuries from another. Nutritional sm5 screening: No deficits noted. Tuberculosis screening: No symptoms or risk factors identified. Fall Risk None identified. Assessment: 21:31 General: Appears in no apparent distress. Behavior is cooperative, appropriate for age. sm5 Pain: Complains of pain in right leg and left leg. Neuro: No deficits noted. Level of Consciousness is awake, alert, obeys commands, Oriented to person, place, time, situation. Cardiovascular: Reports bilateral leg edema. Respiratory: No deficits noted. Airway is patent Trachea midline Respiratory effort is even, unlabored. 22:35 Reassessment: No changes from previously documented assessment. sm5 23:40 Reassessment: Patient and/or family updated on plan of care and expected duration. Pain sm5 level reassessed. 07/24 00:32 Reassessment: No changes from previously documented assessment. sm5 01:28 Reassessment: No changes from previously documented assessment. sm5 02:32 Reassessment: No changes from previously documented assessment. sm5 Vital Signs: 07/23 18:12 BP 176 / 76; Pulse 85; Resp 20; Temp 97.6; Pulse Ox 97% ; Weight 91.63 kg; Height 5 ft. ll1 2 in. (157.48 cm); Pain 1/10; 21:30 BP 205 / 79; Pulse 83; Resp 19; Pulse Ox 96% on R/A; sm5 / 00:08 BP 201 / 62; Pulse 85; Resp 17; Pulse Ox 94% on R/A; sm5 01:40 BP 145 / 56; Pulse 70; Resp 17; Pulse Ox 98% on R/A; sm5 02:13 BP 107 / 82; Pulse 68; Resp 18; Pulse Ox 97% on R/A; sm5 07/23 18:12 Body Mass Index 36.95 (91.63 kg, 157.48 cm) ll1 ED Course: 07/23 18:06 Patient arrived in ED. ds1 18:13 Triage completed. ll1 18:14 Arm band placed on. ll1 19:59 Flor Archuleta RN is Primary Nurse. sm5 20:33 Mindi Watts MD is Attending Physician. sp3 21:00 Inserted saline lock: 20 gauge in left wrist, using aseptic technique. Blood collected. sm5 21:06 Basic Metabolic Panel Sent. sm5 21:06 CBC with Diff Sent. sm5 21:06 LFT's Sent. sm5 21:06 Magnesium Sent. sm5 21:06 NT PRO-BNP Sent. sm5 21:06 PT-INR Sent. sm5 21:06 Troponin HS Sent. sm5 21:28 XRAY Chest (1 view) In Process Unspecified. EDME 21:32 Patient has correct armband on for positive identification. Bed in low position. Call 5 light in reach. Side rails up X 1. 23:02 Ike Araujo MD is Hospitalizing Provider. sp3 23:20 Inserted saline lock: 20 gauge in right antecubital area, using aseptic technique. 5 23:29 COVID swab sent to lab. lt3 23:30 COVID-19/FLU A+B (Document "Date of Onset" if Symptomatic) Sent. lt3 07/24 01:41 No provider procedures requiring assistance completed. 5 02:33 Patient admitted, IV remains in place. 5 Administered Medications: 07/23 23:20 Drug: Lasix (furosemide) 40 mg Route: IVP; Site: right antecubital; 5 07/24 02:33 Follow up: Response: No adverse reaction 5 Output: 00:03 Urine: 600ml (Voided); Total: 600ml. lt3 Outcome: 07/23 23:02 Decision to Hospitalize by Provider. 3 07/24 02:32 Admitted to Med/surg accompanied by tech, via wheelchair, with chart. 5 Condition: stable Instructed on the need for admit. 02:34 Patient left the ED. [facility] Signatures: Dispatcher [employer] EDME Kacy Portillo ds1 Angela Siegel, RN RN ll1 Mindi Watts MD MD sp3 Flor Archuleta RN RN sm5 Varsha So lt3 Corrections: (The following items were deleted from the chart) 07/23 18:14 18:12 Pulse 85bpm; Resp 20bpm; Pulse Ox 97%; Temp 97.6F; 91.63 kg; Height 5 ft. 2 in.; ll1 BMI: 36.9; Pain 1/10; ll1
--- NOTE | 2021-07-23 23:03 | EDPHYS ---
Physician Documentation [facility] Name: Mariluz Smith Age: 61 yrs Sex: Female : 1960 Arrival Date: 07/23/2021 Time: 18:06 Bed 28 Private MD: ED Physician Mindi Watts HPI: 07/23 21:14 This 61 yrs old Female presents to ER via Wheelchair with complaints of Fluid sp3 Overload. 21:14 61-year-old female with a history of prior CHF (not on any medications), TIA presents sp3 to the ED for evaluation sent by her PCP Dr. Lizarraga for possible fluid overload and CHF exacerbation. Patient was seen in the clinic today and due to her dyspnea and clinical exam was told to come here. Patient states that over the last week she has had fluid retention on her legs extending up to her abdomen, increasing shortness of breath, and dyspnea on exertion. Patient denies headache, fever, URI symptoms, neck pain, chest pain, abdominal pain, nausea, vomiting, diarrhea, rash, travel history, known sick contacts, any other findings on ROS at this time.. Historical: - Allergies: 18:13 Codeine; ll1 18:13 Latex, Natural Rubber; ll1 18:13 Milk; ll1 - Home Meds: 07/24 02:13 aspirin 81 mg Oral tab daily [Active]; atorvastatin 40 mg Oral tab 1 tab once daily sm5 [Active]; metoprolol succinate 50 mg Oral CSpX 1 cap once daily [Active]; clonidine HCl 0.1 mg Oral tab 1 tab 4 times per day [Active]; Combigan 0.2-0.5 % ophthalmic drop 1 drop every 12 hours [Active]; Prednisolone Opht [Active]; - PMHx: 07/23 18:13 Broken Neck; Glaucoma; TIA; ll1 - PSHx: 18:13 None; ll1 - Immunization history:: Client reports receiving the 2nd dose of the Covid vaccine, Flu vaccine status is unknown. - Social history:: Smoking status: Patient denies any tobacco usage or history of. ROS: 21:16 Constitutional: Negative for fever, chills, and weight loss, Eyes: Negative for injury, sp3 pain, redness, and discharge, ENT: Negative for injury, pain, and discharge, Neck: Negative for injury, pain, and swelling, Abdomen/GI: Negative for abdominal pain, nausea, vomiting, diarrhea, and constipation, Back: Negative for injury and pain, MS/Extremity: Negative for injury and deformity, Skin: Negative for injury, rash, and discoloration, Neuro: Negative for headache, weakness, numbness, tingling, and seizure, Psych: Negative for depression, anxiety, suicide ideation, homicidal ideation, and hallucinations, Allergy/Immunology: Negative for hives, rash, and allergies. 21:16 All other systems are negative. Exam: 21:16 Constitutional: This is a well developed, well nourished patient who is awake, alert, sp3 and in no acute distress. Head/Face: Normocephalic, atraumatic. Eyes: Pupils equal round and reactive to light, extra-ocular motions intact. Lids and lashes normal. Conjunctiva and sclera are non-icteric and not injected. Cornea within normal limits. Periorbital areas with no swelling, redness, or edema. ENT: Nares patent. No nasal discharge, no septal abnormalities noted. External auditory canals are clear. Oropharynx with no redness, swelling, or masses, exudates, or evidence of obstruction, uvula midline. Mucous membranes moist. Neck: Trachea midline, no thyromegaly or masses palpated, and no cervical lymphadenopathy. Supple, full range of motion without nuchal rigidity, or vertebral point tenderness. No Meningismus. Chest/axilla: Normal chest wall appearance and motion. Nontender with no deformity. No lesions are appreciated. Cardiovascular: Regular rate and rhythm with a normal S1 and S2. No gallops, murmurs, or rubs. Normal PMI, no JVD. No pulse deficits. Abdomen/GI: Soft, non-tender, with normal bowel sounds. No distension or tympany. No guarding or rebound. No evidence of tenderness throughout. Back: No spinal tenderness. No costovertebral tenderness. Full range of motion. Neuro: Awake and alert, GCS 15, oriented to person, place, time, and situation. Cranial nerves II-XII grossly intact. Motor strength 5/5 in all extremities. Sensory grossly intact. Cerebellar exam normal. Normal gait. Psych: Awake, alert, with orientation to person, place and time. Behavior, mood, and affect are within normal limits. 21:16 Respiratory: Mild Rales on clinical exam otherwise normal exam. No respiratory distress. Pulse oxygenation is 100% on room air.. 21:16 Musculoskeletal/extremity: Chronic poor circulation in the legs. Crusted and erythematous epidermis is chronic in nature. Overlying edema is noted 2+ pitting distally.. 21:19 ECG was reviewed by the Attending Physician. EKG demonstrates normal sinus rhythm at 82 sp3 bpm with normal intervals, normal axis, poor R wave progression precordially, nonspecific diffuse ST/T segments without evidence of acute ischemia. Vital Signs: 18:12 BP 176 / 76; Pulse 85; Resp 20; Temp 97.6; Pulse Ox 97% ; Weight 91.63 kg; Height 5 ft. ll1 2 in. (157.48 cm); Pain 1/10; 21:30 BP 205 / 79; Pulse 83; Resp 19; Pulse Ox 96% on R/A; sm5 07/24 00:08 BP 201 / 62; Pulse 85; Resp 17; Pulse Ox 94% on R/A; sm5 01:40 BP 145 / 56; Pulse 70; Resp 17; Pulse Ox 98% on R/A; sm5 02:13 BP 107 / 82; Pulse 68; Resp 18; Pulse Ox 97% on R/A; sm5 07/23 18:12 Body Mass Index 36.95 (91.63 kg, 157.48 cm) ll1 MDM: 07/23 20:42 Patient medically screened. sp3 21:17 Data reviewed: vital signs, nurses notes. ED course: 61-year-old female likely CHF sp3 exacerbation given her blood pressure and clinical exam. Will obtain laboratory values, chest x-ray, and likely administer Lasix once diagnosis is confirmed. I am not highly suspicious for acute coronary syndrome, TIA, sepsis, pneumonia, infectious cause, liver failure, vascular compromise, or any other critical findings at this time. Will admit to Dr. Lizarraga versus discharge after evaluation is complete.. 22:50 ED course: BNP level at 16,000 and IV Lasix has been given. Blood pressure is coming sp3 down on its own. Discussed with Dr. Lizarraga who is out of town and asked if we could admit the patient to the hospitalist service. Chest x-ray also demonstrates mild pulmonary edema. Clinically with the weight gain and peripheral edema, diagnosis has been ascertained. Further work-up per inpatient team.. 07/23 20:39 Order name: Basic Metabolic Panel; Complete Time: 22:42 3 07/23 20:39 Order name: CBC with Diff; Complete Time: 22:42 3 07/23 20:39 Order name: LFT's; Complete Time: 22:42 3 07/23 20:39 Order name: Magnesium; Complete Time: 22:42 3 07/23 20:39 Order name: NT PRO-BNP; Complete Time: 22:42 3 07/23 20:39 Order name: PT-INR; Complete Time: 22:42 3 07/23 20:39 Order name: Troponin HS; Complete Time: 22:42 3 07/23 20:39 Order name: XRAY Chest (1 view); Complete Time: 22:42 3 07/23 20:39 Order name: EKG; Complete Time: 20:40 3 07/23 20:39 Order name: Cardiac monitoring; Complete Time: 21:17 3 07/23 20:39 Order name: EKG - Nurse/Tech; Complete Time: 21:17 3 07/23 20:39 Order name: IV Saline Lock; Complete Time: 21:05 3 07/23 23:05 Order name: COVID-19/FLU A+B (Document "Date of Onset" if Symptomatic); Complete Time: cs9 00:18 07/23 20:39 Order name: Labs collected and sent; Complete Time: 21:05 3 07/23 20:39 Order name: O2 Per Protocol; Complete Time: 21:06 3 07/23 20:39 Order name: O2 Sat Monitoring; Complete Time: 21:06 sp3 Administered Medications: 23:20 Drug: Lasix (furosemide) 40 mg Route: IVP; Site: right antecubital; 5 07/24 02:33 Follow up: Response: No adverse reaction sm5 Disposition Summary: 07/23/21 23:02 Hospitalization Ordered Hospitalization Status: Observation sp3 Provider: Ike Araujo sp3 Location: Telemetry/MedSurg (observation) sp3 Condition: Stable sp3 Problem: an acute exacerbation sp3 Symptoms: have worsened sp3 Bed/Room Type: Standard sp3 Room Assignment: 429(07/24/21 01:19) Diagnosis - Acute on chronic systolic (congestive) heart failure sp3 Forms: - Medication Reconciliation Form sp3 - SBAR form sp3 Signatures: Dispatcher [employer] EDNaldo Wisdom, INTERNAL SALESPERSON-C INTERNAL SALESPERSON-Cla1 Marybel Hernandez RN RN cg Angela Siegel RN RN ll1 Mindi Watts MD MD sp3 Flor Archuleta RN RN sm5 Corrections: (The following items were deleted from the chart) 01:19 07/23 23:02 sp3
[2021-07-23] MEDS ORDERED: FUROSEMIDE 40 MG/4 ML VIAL ONE (23:12)
[2021-07-24 00:15] LABS: SARS-COV-2 RT PCR NEGATIVE (NEGATIVE)
[2021-07-24] MEDS ORDERED: HYDRALAZINE HCL 20 MG/ML VIAL ONE (00:33)
--- NOTE | 2021-07-24 00:49 | P.HP ---
Certification for Inpatient Patient admitted to: Inpatient With expected LOS: >2 Midnights Patient will require the following post-hospital care: None Practitioner: I am a practitioner with admitting privileges, knowledge of patient current condition, hospital course, and medical plan of care. Services: Services provided to patient in accordance with Admission requirements found in Title 42 Section 412.3 of the Code of Federal Regulations Patient History Date of Service: 07/24/21 Primary Care Provider: [facility] emergency department Reason for admission: CHF exacerbation History of Present Illness: 61-year-old female with history of chronic diastolic congestive heart failure, hypertension and glaucoma presents emergency department for swelling. Patient was seen by her primary care doctor who sent her in for evaluation for possible CHF exacerbation. Patient was evaluated here in the emergency department her BNP is significantly elevated 16,490, also noted to have anasarca of the legs, abdomen. Patient was given Lasix in the emergency department ED provider wishes to admit for further evaluation and management. Allergies codeine Allergy (Verified 05/22/19 03:39) Anaphylaxis Latex, Natural Rubber Allergy (Verified 05/22/19 03:39) see comment milk Allergy (Verified 05/22/19 03:39) see comment Milk Containing Products Allergy (Verified 05/22/19 03:39) see comment Home Medications: Aspirin 81 mg PO DAILY 04/15/21 Atorvastatin Calcium 40 mg PO DAILY 04/15/21 Brimonidine Tartrate/Timolol [Combigan 0.2%-0.5% Eye Drops] 5 ml EACH EYE BID 04/15/21 Furosemide [Lasix] 40 mg PO BID 30 Days #60 tablet 04/15/21 Metoprolol Tartrate [Lopressor*] 25 mg PO BID 6AM 6PM tab 04/15/21 Sertraline [Zoloft*] 0.5 tab PO DAILY 60 Days #30 tab 04/15/21 lisinopriL [Prinivil*] 5 mg PO DAILY 30 Days #30 tab 04/15/21 predniSONE [Deltasone*] 10 mg PO BID 14 Days #28 tab 04/15/21 Furosemide [Lasix*] 40 mg PO BIDL #60 tab 04/20/21 Potassium Chloride [K-Dur] 20 meq PO DAILY #30 tab.er.prt 04/20/21 Topiramate [Topamax*] 200 mg PO BEDTIME #60 tab 04/20/21 - Past Medical/Surgical History Diabetic: Yes -: cataracts -: macular degeneration -: neck fx -: Hypertension -: Chronic diastolic congestive heart failure -: TIA -: cataract surgery bilateral eyes -: neck sx -: finger sx Psychosocial/ Personal History: Patient lives at home, cares for her 2 grandchildren - Family History Mother -: Stroke Father -: Heart disease, Hypertension - Social History Smoking Status: Never smoker Alcohol use: No CD- Drugs: No Caffeine use: No Place of Residence: Home Review of Systems 10-point ROS is otherwise unremarkable Respiratory: Cough, Shortness of Breath Cardiovascular: Edema, Other (Anasarca), As per HPI Physical Examination - Physical Exam General: Alert, In no apparent distress, Oriented x3 HEENT: Atraumatic, PERRLA, Mucous membr. moist/pink, EOMI, Sclerae nonicteric Neck: Supple, 2+ carotid pulse no bruit, No LAD, Without JVD or thyroid abnormality Respiratory: Clear to auscultation bilaterally, Normal air movement Cardiovascular: Regular rate/rhythm, Normal S1 S2, Edema (3+ pitting to about lo wer extremities, anasarca of the abdomen) Gastrointestinal: Normal bowel sounds, No tenderness Musculoskeletal: No tenderness Integumentary: No rashes Neurological: Normal gait, Normal speech, Normal strength at 5/5 x4 extr, Normal tone, Normal affect Lymphatics: No axilla or inguinal lymphadenopathy - Studies Laboratory Data (last 24 hrs) 07/23/21 21:06: PT 12.2, INR 1.06 07/23/21 21:06: WBC 5.90, Hgb 11.4 L, Hct 34.2 L, Plt Count 239 07/23/21 21:06: Sodium 140, Potassium 4.1, BUN 18, Creatinine 0.84, Glucose 115 H, Magnesium 2.3, Total Bilirubin 0.5, AST 24, ALT 25, Alkaline Phosphatase 294 H Assessment and Plan - Plan Assessment: Dyspnea, anasarca secondary to acute on chronic diastolic congestive heart failure Hypertension Plan: Dyspnea, anasarca secondary to acute on chronic diastolic congestive heart failure: Patient has been off of Lasix at home. Initiate therapy with Lasix 40 mg IV 3 times daily patient with anasarca significant swelling and shortness of breath at rest at this time. No oxygen requirement. Cardiology consulted last echocardiogram done in March 2021 demonstrated ejection fraction of around 55%. Hypertension: Continue home medications, as needed additional medications. DVT PPX: Lovenox Code status: Full Discharge Plan: Home Plan to discharge in: 48 Hours - Advance Directives Does patient have a Living Will: No Does patient have a Durable POA for Healthcare: No - Code Status/Comfort Care Code Status Assessed: Yes (Full) Critical Care: No Time Spent Managing Pts Care (In Minutes): 55
[2021-07-24] MEDS ORDERED: ONDANSETRON 4 MG/2 ML VIAL IV PRN (01:22)
[2021-07-24] MEDS: FUROSEMIDE 40 MG/4 ML VIAL IV SCH ×3 (01:22→16:27)
[2021-07-24] MEDS ORDERED: HYDRALAZINE HCL 20 MG/ML VIAL IV PRN (01:22)
[2021-07-24 04:54] LABS: Absolute Lymphocytes (CBC) 1.1 K/uL (0.7-4.9); Hematocrit 34.5 % (36.0-45.0); Lymphocytes % 16.5 % (15.3-44.8); MPV 8.7 fL (7.6-11.3); RBC Red Blood Cell Count 3.91 M/uL (3.86-4.86)
[2021-07-24 05:09] LABS: Albumin 2.7 g/dL (3.4-5.0); Bilirubin Total 0.7 mg/dL (0.2-1.0); Magnesium 2.1 mg/dL (1.8-2.4); Potassium 3.9 mmol/L (3.5-5.1); Protein, Total 6.1 g/dL (6.4-8.2)
[2021-07-24 06:01] VITALS: BMI 36.6
[2021-07-24] MEDS ORDERED: POTASSIUM CL SA 10 MEQ TAB PO ONE ×2 (06:09→13:00)
[2021-07-24] MEDS: METOPROLOL TAR 25 MG TAB PO SCH ×2 (06:20→17:32)
[2021-07-24] MEDS ORDERED: INFLUENZA VACCINE (for 6+ mo) 0.5 ML DOSE IMVAC ONE (08:00)
[2021-07-24] MEDS: ENOXAPARIN 40 MG/0.4 ML SQ SCH (08:27)
[2021-07-24 08:58] LABS: Urine Appearance CLEAR (Clear); Urine Bilirubin NEGATIVE (Negative); Urine Blood 1+ (Negative); Urine Color YELLOW (Yellow); Urine Glucose NEGATIVE (Negative); Urine Protein 3+ (Negative); Urine Urobilinogen 0.2 mg/dL (0.2-1.0)
[2021-07-24 09:01] LABS: Urine Microscopic Reflex ORDER UMIC
[2021-07-24 09:10] LABS: Urine Bacteria <20 /HPF (<20); Urine RBC <5 /HPF (NONE SEEN)
--- NOTE | 2021-07-24 11:30 | EKG ---
Test Date: 2021-07-23 Test Time: 21:16:59 Skidder: JOSE CRUZ MEASUREMENT RESULTS: Intervals: Rate: 82 IL: 142 QRSD: 70 QT: 424 QTc: 495 [place]: P: 59 IL: 142 QRS: 101 T: 13 INTERPRETIVE STATEMENTS: Normal sinus rhythm Possible Left atrial enlargement Rightward axis Prolonged QT Abnormal ECG Compared to ECG 04/17/2021 02:55:01 Right-axis deviation now present Electronically Signed On 07-24-21 11:28:54 DRY COLOR TESTER by Eugene Hopkins
[2021-07-24] MEDS ORDERED: ATORVASTATIN 20 MG TAB PO SCH (21:00)
[2021-07-25] MEDS: FUROSEMIDE 40 MG/4 ML VIAL IV SCH ×2 (00:38→08:56)
[2021-07-25 01:17] VITALS: O2SAT 94
[2021-07-25 04:35] LABS: Absolute Lymphocytes (CBC) 1.4 K/uL (0.7-4.9); Hematocrit 31.5 % (36.0-45.0); Lymphocytes % 26.6 % (15.3-44.8); MPV 8.7 fL (7.6-11.3); RBC Red Blood Cell Count 3.59 M/uL (3.86-4.86)
[2021-07-25 05:03] LABS: Potassium 3.8 mmol/L (3.5-5.1)
[2021-07-25 05:04] LABS: Albumin 2.6 g/dL (3.4-5.0); Bilirubin Total 0.6 mg/dL (0.2-1.0); Protein, Total 5.7 g/dL (6.4-8.2)
[2021-07-25] MEDS: METOPROLOL TAR 25 MG TAB PO SCH (05:09)
[2021-07-25 07:55] VITALS: BP 115/56; TEMP 97.9
[2021-07-25] MEDS: ENOXAPARIN 40 MG/0.4 ML SQ SCH (08:56)
[2021-07-25] MEDS ORDERED: POTASSIUM CL SA 10 MEQ TAB PO ONE (09:00)
[2021-07-25] MEDS ORDERED: FOLIC ACID 800 MCG PO SCH (09:00)
[2021-07-25] MEDS ORDERED: BRIMONIDINE TARTRATE OPTH SCH (09:00)
[2021-07-25] MEDS ORDERED: ASPIRIN 81 MG CHEWABLE TABLET PO SCH (09:00)
[2021-07-25] MEDS ORDERED: LORATADINE 10 MG TAB PO SCH (09:00)
[2021-07-25] MEDS ORDERED: TIMOLOL OPTH SCH (09:00)
[2021-07-25] MEDS ORDERED: METOPROLOL TAR 25 MG TAB PO SCH (09:00)
--- NOTE | 2021-07-25 09:10 | RAD REPORT ---
EXAM DESCRIPTION: RAD - Chest Single View - 07/25/2021 8:26 am CLINICAL HISTORY: hypoxia COMPARISON: Chest Single View dated 07/23/2021; Chest Single View dated 04/14/2021; Chest Single View dated 12/04/2020; Chest Single View dated 05/21/2019 FINDINGS: Lines: None. Lungs: Mild right basilar opacities. Prominence of the interstitium . Pleural: Small right effusion. Cardiac: Cardiomegaly . Bones: No acute fractures. Other: IMPRESSION: Mild edema as well as small right pleural effusion and likely underlying atelectasis whi ch are unchanged since 07/23/2021.
--- NOTE | 2021-07-25 10:05 | P.DS ---
Admission Date: 07/24/21 Discharge Date: 07/25/21 Primary Care Provider: [facility] Disposition: ROUTINE DISCHARGE Discharge Condition: GOOD Reason for Admission: CHF exacerbation Hospital Course: Patient is a 61-year-old female with history of chronic diastolic congestive heart failure, hypertension and glaucoma. She was admitted with decompensated CHF. She did well with diuresis. It seems like she has been non- compliant with her lasix and has been out for some time. She did well on IV diuresis here and has been on room air most of this admission. She can be discharged today. TTE from showed diastolic dysfunction 3 months ago. Vital Signs/Physical Exam: Temp Pulse Resp BP Pulse Ox 97.9 F 63 18 115/56 L 97 07/25/21 07:55 07/25/21 08:56 07/25/21 07:55 07/25/21 08:56 07/25/21 07:55 General: Alert, In no apparent distress, Cooperative HEENT: Atraumatic, Normocephalic Respiratory: Other (breathing unlaboured on room air) Neurological: Normal gait, Normal speech, Normal affect Laboratory Data at Discharge: WBC 5.40 K/uL (4.3-10.9) D 07/25/21 03:38 Hgb 10.4 g/dL (12.0-15.0) L 07/25/21 03:38 Hct 31.5 % (36.0-45.0) L 07/25/21 03:38 Plt Count 230 K/uL (152-406) 07/25/21 03:38 PT 12.2 SECONDS (9.5-12.5) 07/23/21 21:06 INR 1.06 07/23/21 21:06 Sodium 139 mmol/L (136-145) 07/25/21 03:38 Potassium 3.8 mmol/L (3.5-5.1) 07/25/21 03:38 BUN 21 mg/dL (7-18) H 07/25/21 03:38 Creatinine 0.92 mg/dL (0.55-1.3) 07/25/21 03:38 Glucose 106 mg/dL (74-106) 07/25/21 03:38 Magnesium 2.0 mg/dL (1.8-2.4) 07/25/21 03:38 Total Bilirubin 0.6 mg/dL (0.2-1.0) 07/25/21 03:38 AST 15 U/L (15-37) 07/25/21 03:38 ALT 19 U/L (12-78) 07/25/21 03:38 Alkaline Phosphatase 235 U/L (45-117) H 07/25/21 03:38 Home Medications: Aspirin 81 mg PO DAILY 04/15/21 Atorvastatin Calcium 20 mg PO DAILY 04/15/21 Brimonidine Tartrate/Timolol [Combigan 0.2%-0.5% Eye Drops] 5 ml EACH EYE BID 04/15/21 Folic Acid 800 mcg PO DAILY 07/24/21 Loratadine [Claritin] 10 mg PO DAILY 07/24/21 Furosemide 40 mg PO BID #60 tablet 07/25/21 Metoprolol Tartrate [Lopressor*] 25 mg PO BID 6AM 6PM #60 tab 07/25/21 New Medications: Furosemide 40 mg PO BID #60 tablet Metoprolol Tartrate [Lopressor*] 25 mg PO BID 6AM 6PM #60 tab Followup: Sam Lizarraga MD [Primary Care Provider] -
[2021-07-25] MEDS ORDERED: INFLUENZA VACCINE (for 6+ mo) 0.5 ML DOSE IMVAC ONE (12:00)
[2021-07-25] MEDS ORDERED: ATORVASTATIN 20 MG TAB PO SCH (21:00)
== END 2021-07-25 11:37 | disposition home or self-care (01) | DRG 291 ==
LOC: ER 17:57 → ERHOLD 07-24 01:11 → 4TH 07-24 02:02
PROVIDERS: ADMIT Internal Medicine; ATTEND Internal Medicine
DX: I11.0 Hypertensive heart disease with heart failure (principal); I50.33 Acute on chronic diastolic (congestive) heart failure; E11.9 Type 2 diabetes mellitus without complications; Z86.73 Personal history of transient ischemic attack (TIA), and cerebral infarction without residual deficits; Z88.5 Allergy status to narcotic agent; Z91.040 Latex allergy status; Z91.011 Allergy to milk products; Z91.14 Patient's other noncompliance with medication regimen; Z79.82 Long term (current) use of aspirin; Z79.52 Long term (current) use of systemic steroids; Z79.899 Other long term (current) drug therapy; Z20.822 Contact with and (suspected) exposure to COVID-19
CPT/HCPCS: 0240U; 36415; 71045; 80048; 80053; 80076; 81003; 81015; 83735; 83880; 84132; 84484; 85025; 85610; 87086; 87088; 93005; 96374; 99285; J0360; J1650; J1940

== ENCOUNTER → 2023-05-22 | Emergency (ER) | payer MEDICARE, OTHER ==
--- NOTE | 2023-05-22 20:27 | RAD REPORT ---
EXAM DESCRIPTION: CT - Abdomen Pelvis Wo Contrast - 05/22/2023 8:15 pm CLINICAL HISTORY: Abdominal pain. VAGINAL BLEEDING COMPARISON: <Comparisons> TECHNIQUE: CT imaging of the abdomen and pelvis was performed without contrast. Solid organ, bowel a nd vascular assessment is limited due to lack of IV and oral contrast. All CT scans are performed using dose optimization technique as appropriate and may include automated exposure control or mA/KV adjustment according to patient size. FINDINGS: The lower lung yo are clear.Suspected cholelithiasis. The liver, spleen, pancreas, left adrenal gland and kidneys are within normal limits for a limited no n-contrast examination.19 mm right adrenal nodule is present likely an adenoma. No bowel obstruction, free air, free fluid or abscess. The appendix is normal. The osseous structures are within normal limits. IMPRESSION: No acute intra-abdominal or pelvic findings. A limited non-contrast examination was performed as detailed.
[2023-05-22 21:58] LABS: Absolute Lymphocytes (CBC) 1.1 K/uL (0.7-4.9); Hematocrit 30.2 % (36.0-45.0); Lymphocytes % 15.3 % (15.3-44.8); MCV 90.6 fL (80-100); Platelets 268 thou/uL (152-406); RBC Red Blood Cell Count 3.34 M/uL (3.86-4.86)
[2023-05-22 22:09] LABS: Potassium 3.7 mEq/L (3.5-5.1)
--- NOTE | 2023-05-22 22:17 | EDPHYS ---
Physician Documentation [facility] Name: Mariluz Smith Age: 62 yrs Sex: Female : 1960 Arrival Date: 05/22/2023 Time: 18:45 Bed 18 Private MD: Sam Lizarraga ED Physician Arash Araujo HPI: 05/22 20:46 This 62 yrs old Female presents to ER via Wheelchair with complaints of kb Vaginal Bleeding. 20:46 Patient is a 62-year-old female who presents for vaginal bleeding that started on kb 05/09/2023. Denies any pain, shortness of breath, dizziness, lightheadedness.. Historical: - Allergies: 19:12 Codeine; tl4 19:12 Milk; tl4 19:12 Latex; tl4 - Home Meds: 19:12 dorzolamide-timolol ophthalmic (eye) [Active]; atorvastatin 20 mg oral tablet 1 tab tl4 daily [Active]; Folic Acid Oral [Active]; metoprolol succinate 25 mg oral Tablet, Extended Release 24 hr 1 tab daily [Active]; furosemide 40 mg oral tablet 2 times per day [Active]; aspirin 81 mg Oral tab daily [Active]; - PMHx: 19:12 Broken Neck; Glaucoma; TIA; Hypertensive disorder; Hypercholesterolemia; tl4 - Immunization history:: Adult Immunizations unknown. - Social history:: Smoking status: Patient denies any tobacco usage or history of. ROS: 20:46 Positive for vaginal bleeding, kb 20:46 Constitutional: Negative for fever, chills, and weight loss, 20:46 All other systems are negative, Exam: 20:46 Constitutional: This is a well developed, well nourished patient who is awake, alert, kb and in no acute distress. Head/Face: Normocephalic, atraumatic. ENT: Moist Mucous membranes Cardiovascular: Regular rate Respiratory: Respirations even and unlabored. No increased work of breathing. Talking in full sentences Abdomen/GI: Soft, non-tender. No distention Skin: Warm, dry with normal turgor. Normal color. MS/ Extremity: Pulses equal, no cyanosis. Neurovascular intact. Full, normal range of motion. Neuro: Awake and alert, GCS 15, oriented to person, place, time, and situation. Moves all extremities. Normal gait. Vital Signs: 19:06 BP 169 / 101; Pulse 83; Resp 18; Temp 97.3(TE); Pulse Ox 99% on R/A; Weight 81.65 kg; tl4 Height 5 ft. 2 in. ; Pain 0/10; 21:45 BP 187 / 73; Pulse 90; Resp 16 S; Pulse Ox 97% on R/A; km8 22:23 BP 169 / 73; Pulse 77; Resp 16; Pulse Ox 97% on R/A; km8 19:06 Body Mass Index 32.92 (81.65 kg, 157.48 cm) tl4 19:06 Pain Scale: Adult tl4 Adonis Coma Score: 21:45 Eye Response: spontaneous(4). Motor Response: obeys commands(6). Verbal Response: km8 oriented(5). Total: 15. MDM: 18:47 Patient medically screened. kb 20:47 Differential diagnosis: malignancy, uterine fibroids. Data reviewed: vital signs, kb nurses notes. 22:16 Counseling: I had a detailed discussion with the patient and/or guardian regarding the kb historical points, exam findings, and any diagnostic results supporting the discharge/admit diagnosis, lab results, radiology results, the need for outpatient follow up, an OB/Gyne specialist, to return to the emergency department if symptoms worsen or persist or if there are any questions or concerns that arise at home. 05/22 19:08 Order name: CBC with Diff; Complete Time: 22:01 kb 05/22 19:08 Order name: BMP; Complete Time: 22:15 kb 05/22 19:14 Order name: CT Abd/Pelvis - Without Contrast; Complete Time: 20:29 kb Administered Medications: No medications were administered Disposition: 05/23 08:59 Co-signature as Attending Physician, Arash Araujo MD I reviewed the patient's care rn provided by the Advanced Practice Provider and agree with the diagnosis and treatment plan. Disposition Summary: 05/22/23 22:16 Discharge Ordered Notes: Location: Home kb Condition: Stable kb Diagnosis - Abnormal uterine and vaginal bleeding, unspecified kb Followup: kb - With: Emergency Department - When: As needed - Reason: Worsening of condition Followup: kb - With: Private Physician - When: 2 - 3 days - Reason: Recheck today's complaints, Continuance of care, Re-evaluation by your physician Discharge Instructions: - Discharge Summary Sheet kb - Abnormal Uterine Bleeding, [id number] kb - Postmenopausal Bleeding, [id number] kb Forms: - Medication Reconciliation Form kb - Thank You Letter kb - Antibiotic Education kb - Prescription Opioid Use kb - Patient Portal Instructions kb - Leadership Thank You Letter kb Signatures: Dispatcher [employer] EDWY Ani Grey, JANITOR-C JANITOR-Arash Golden MD MD rn Gui Chaudhry tl4 Corrections: (The following items were deleted from the chart) 05/22 20:59 19:09 Pelvis Complete+US.RAD.BRZ ordered. EDMS EDMS 22:23 19:08 IV Saline Lock ordered. kb km8
--- NOTE | 2023-05-22 22:17 | ER ---
Nurse's Notes [facility] Name: Mariluz Smith Age: 62 yrs Sex: Female : 1960 Arrival Date: 05/22/2023 Time: 18:45 Bed 18 Private MD: Sam Lizarraga Diagnosis: Abnormal uterine and vaginal bleeding, unspecified Presentation: 05/22 19:06 Chief complaint: Patient states: Pt c/o heavy vaginal bleeding and cramping since tl4 05/09/23. Pt is post menopausal. Coronavirus screen: Vaccine status: Patient reports receiving the 2nd dose of the covid vaccine. At this time, the client does not indicate any symptoms associated with coronavirus-19. Ebola Screen: Patient negative for fever greater than or equal to 101.5 degrees Fahrenheit, and additional compatible Ebola Virus Disease symptoms Patient denies exposure to infectious person. Patient denies travel to an Ebola-affected area in the 21 days before illness onset. No symptoms or risks identified at this time. Initial Sepsis Screen: Does the patient meet any 2 criteria? No. Patient's initial sepsis screen is negative. Does the patient have a suspected source of infection? No. Patient's initial sepsis screen is negative. Risk Assessment: Do you want to hurt yourself or someone else? Patient reports no desire to harm self or others. Onset of symptoms was May 09, 2023. 19:06 Method Of Arrival: Wheelchair tl4 19:06 Acuity: RACHANA 3 tl4 Triage Assessment: 19:10 General: Appears in no apparent distress. Behavior is calm, cooperative. Pain: Denies tl4 pain. : Reports vaginal bleeding that is heavy flow. Historical: - Allergies: 19:12 Codeine; tl4 19:12 Milk; tl4 19:12 Latex; tl4 - Home Meds: 19:12 dorzolamide-timolol ophthalmic (eye) [Active]; atorvastatin 20 mg oral tablet 1 tab tl4 daily [Active]; Folic Acid Oral [Active]; metoprolol succinate 25 mg oral Tablet, Extended Release 24 hr 1 tab daily [Active]; furosemide 40 mg oral tablet 2 times per day [Active]; aspirin 81 mg Oral tab daily [Active]; - PMHx: 19:12 Broken Neck; Glaucoma; TIA; Hypertensive disorder; Hypercholesterolemia; tl4 - Immunization history:: Adult Immunizations unknown. - Social history:: Smoking status: Patient denies any tobacco usage or history of. Screenin:45 [facility] ED Fall Risk Assessment (Adult) History of falling in the last 3 months, km8 including since admission No falls in past 3 months (0 pts) Confusion or Disorientation No (0 pts) Intoxicated or Sedated No (0 pts) Impaired Gait No (0 pts) Mobility Assist Device Used No (0 pt) Altered Elimination No (0 pt) Score/Fall Risk Level 0 - 2 = Low Risk Oriented to surroundings, Maintained a safe environment, Educated pt \T\ family on fall prevention, incl call for assistance when getting out of bed, Assessed \T\ reinforced patient's understanding of fall precautions. Abuse screen: Denies threats or abuse. Denies injuries from another. Nutritional screening: No deficits noted. Tuberculosis screening: No symptoms or risk factors identified. Assessment: 21:45 General: Appears in no apparent distress. comfortable, Behavior is cooperative, km8 appropriate for age, anxious. Pain: Denies pain. Neuro: Level of Consciousness is awake, alert, obeys commands, Oriented to person, place, time, situation. Cardiovascular: Denies chest pain, shortness of breath, Capillary refill < 3 seconds Patient's skin is warm and dry. Respiratory: Airway is patent Respiratory effort is even, unlabored, Respiratory pattern is regular, symmetrical. GI: No signs and/or symptoms were reported involving the gastrointestinal system. : Urine is blood tinged, Parent/caregiver report the patient having vaginal bleeding that is heavy flow. EENT: No signs and/or symptoms were reported regarding the EENT system. Derm: No signs and/or symptoms reported regarding the dermatologic system. Skin is intact, is healthy with good turgor, Skin is dry, Skin is pink, warm \T\ dry. normal, Skin temperature is warm. Musculoskeletal: No signs and/or symptoms reported regarding the musculoskeletal system. Circulation, motion, and sensation intact. Range of motion: intact in all extremities. 22:23 Reassessment: Patient appears in no apparent distress at this time. No changes from km8 previously documented assessment. Patient and/or family updated on plan of care and expected duration. Pain level reassessed. Patient is alert, oriented x 3, equal unlabored respirations, skin warm/dry/pink. Vital Signs: 19:06 BP 169 / 101; Pulse 83; Resp 18; Temp 97.3(TE); Pulse Ox 99% on R/A; Weight 81.65 kg; tl4 Height 5 ft. 2 in. ; Pain 0/10; 21:45 BP 187 / 73; Pulse 90; Resp 16 S; Pulse Ox 97% on R/A; km8 22:23 BP 169 / 73; Pulse 77; Resp 16; Pulse Ox 97% on R/A; km8 19:06 Body Mass Index 32.92 (81.65 kg, 157.48 cm) tl4 19:06 Pain Scale: Adult tl4 Adonis Coma Score: 21:45 Eye Response: spontaneous(4). Motor Response: obeys commands(6). Verbal Response: km8 oriented(5). Total: 15. ED Course: 18:46 Patient arrived in ED. rg4 18:47 Sam Lizarraga MD is Private Physician. rg4 18:47 [facility]C [facility] kb 18:47 Arash Araujo MD is Attending Physician. kb 19:10 Triage completed. tl4 19:10 Arm band placed on right wrist. tl4 20:16 CT Abd/Pelvis - Without Contrast In Process Unspecified. EDMS 21:45 Patient has correct armband on for positive identification. Bed in low position. Call km8 light in reach. Side rails up X 1. Pulse ox on. NIBP on. Door closed. Lights dimmed. 21:45 Initial lab(s) drawn, by nm, sent to lab. km8 21:45 No provider procedures requiring assistance completed. Patient maintains SpO2 km8 saturation greater than 95% on room air. 22:16 Arash Araujo MD is Referral Physician. kb 22:23 Provided Education on: d/c teaching. km8 22:23 Patient did not have IV access during this emergency room visit. km8 Administered Medications: No medications were administered Medication: 21:45 VIS not applicable for this client. km8 Outcome: 22:16 Discharge ordered by . kb 22:29 Discharged to home ambulatory, km8 22:29 Condition: good 22:29 Discharge instructions given to patient, Instructed on discharge instructions, follow up and referral plans. Demonstrated understanding of instructions, follow-up care, 22:30 Patient left the ED. km8 Signatures: Dispatcher [employer] EDMS Hossein Greyistin, BLOOD BANK ASSISTANT-C BLOOD BANK ASSISTANT-Yolande Mcneal rg4 Remedios Watson, RN RN km8 AureaGui goode tl4
[2023-05-22 23:23] VITALS: BP 169/73; TEMP 97.3; O2SAT 97
== END ==
LOC: ER 18:45
DX: N93.9 Abnormal uterine and vaginal bleeding, unspecified (principal); Z88.5 Allergy status to narcotic agent; Z91.011 Allergy to milk products; Z91.040 Latex allergy status; Z79.82 Long term (current) use of aspirin
CPT/HCPCS: 36415; 74176; 80048; 85025; 99284

== ENCOUNTER 2024-03-19 12:09 | Inpatient (IN) | payer OTHER ==
--- NOTE | 2024-03-19 13:51 | RAD REPORT ---
EXAM:Extremity Venous Uni Ltd HISTORY: Right leg pain TECHNIQUE: Sonographic evaluation lower extremity performed.Grayscale, color and spectral analysis performed on all vessels COMPARISON: None. FINDINGS: Right common femoral, superficial femoral, greater saphenous, popliteal and posterior tibial veins ar e compressible and demonstrate augmentation. Doppler demonstrates good flow. IMPRESSION: No evidence of deep venous thrombosis involving the right lower extremity.
--- NOTE | 2024-03-19 13:53 | RAD REPORT ---
Procedure: Chest Pa And Lat (2 Views) HISTORY: Chest pain COMPARISON: 2021 FINDINGS: The lungs appear clear of acute infiltrate. No significant pleural effusion noted. The heart is mildly enlarged. IMPRESSION: No acute abnormality is displayed.
--- NOTE | 2024-03-19 13:54 | RAD REPORT ---
Exam:Foot Right 3 View CLINICAL HISTORY: Right foot pain FINDINGS: No fracture or dislocation seen Soft tissue swelling. No bony destructive lesion seen
[2024-03-19 14:25] LABS: SARS-CoV-2 Antigen CONTROL BLUE LINE VIS/BG OK; SARS-CoV-2 Antigen Rapid Res Negative (Negative)
[2024-03-19] MEDS ORDERED: METHYLPREDNISOLONE 125 MG INJ ONE (14:56)
[2024-03-19] MEDS ORDERED: ALBUTEROL 2.5 MG/3 ML NEB SOL ONE (14:56)
[2024-03-19] MEDS ORDERED: IPRATROPIUM BROM 0.5MG/2.5ML ONE (14:56)
[2024-03-19 17:07] LABS: Absolute Basophils 0.1 K/uL (0-0.5); Absolute Eosinophils 0.1 K/uL (0-0.5); Absolute Lymphocytes (CBC) 0.7 K/uL (0.7-4.9); Absolute Monocytes 0.3 K/uL (0.1-1.3); Absolute Neutrophil 8.7 K/uL (1.8-8.0); Basophils % 0.9 % (0-1.3); Eosinophils % 0.6 % (0-4.4); Hematocrit 24.9 % (36.0-45.0); Hemoglobin 8.4 g/dL (12.0-15.0); Lymphocytes % 7.4 % (15.3-44.8); MCH 31.1 pg (27.0-35.0); MCHC 33.6 g/dL (32.0-36.0); MCV 92.7 fL (80-100); MPV 8.4 fL (7.6-11.3); Monocytes % 2.7 % (3.3-12.3); Neutrophils % 88.4 % (41.7-73.7); Platelets 361 thou/uL (152-406); RBC Red Blood Cell Count 2.69 M/uL (3.86-4.86); Red Cell Distribution Width 15.1 % (12.1-15.2)
[2024-03-19 17:21] LABS: ALT/SGPT 16 U/L (13-56); Albumin 2.4 g/dL (3.4-5.0); Albumin/Globulin Ratio 0.6 (1.1-1.8); Alkaline Phosphatase 122 U/L (45-117); Anion Gap 9.7 mEq/L (5.0-15.0); BUN Blood Urea Nitrogen 28 mg/dL (7-18); Bicarbonate 25 mEq/L (21-32); Bilirubin Direct 0.2 mg/dL (0-0.2); Bilirubin Indirect, Calculated 0.4 mg/dL (0.2-0.8); Bilirubin Total 0.6 mg/dL (0.2-1.0); Globulin 4.3 g/dL (2.3-3.5); Glomerular Filtration Rate 39 ml/min (=/>90); Glucose Level 168 mg/dL (74-106); Magnesium 2.3 mg/dL (1.6-2.4); NT PRO-BNP 21741 pg/mL (<125); Potassium 3.7 mEq/L (3.5-5.1); Protein, Total 6.7 g/dL (6.4-8.2); Sodium Level 140 mEq/L (136-145); Troponin High Sensitivity 18.4 pg/mL (<58.9)
[2024-03-19 17:22] LABS: AST/SGOT < 10 U/L (15-37)
[2024-03-19] MEDS ORDERED: FUROSEMIDE 40 MG/4 ML VIAL ONE (18:22)
--- NOTE | 2024-03-19 18:22 | ER ---
Nurse's Notes [facility] Name: Mariluz Smith Age: 63 yrs Sex: Female : 1960 Arrival Date: 03/19/2024 Time: 12:09 Bed 6 Private MD: Diagnosis: Unspecified combined systolic (congestive) and diastolic (congestive) heart failure;Dyspnea;Cough Presentation: 03/19 12:39 Chief complaint: Patient states: right foot swelling, hot to touch, can't walk on it, iw started Tuesday , also has productive cough, has been on Z pack. Coronavirus screen: Client presents with at least one sign or symptom that may indicate coronavirus-19. Ebola Screen: No symptoms or risks identified at this time. Initial Sepsis Screen: Does the patient meet any 2 criteria? No. Patient's initial sepsis screen is negative. Does the patient have a suspected source of infection? No. Patient's initial sepsis screen is negative. Risk Assessment: Do you want to hurt yourself or someone else? Patient reports no desire to harm self or others. Onset of symptoms was March 17, 2024. 12:39 Method Of Arrival: Wheelchair iw 12:39 Acuity: RACHANA 3 iw Historical: - Allergies: 12:40 Codeine; iw 12:40 Milk; iw - PMHx: 12:40 Broken Neck; Glaucoma; Hypercholesterolemia; Hypertensive disorder; TIA; iw - Immunization history:: Adult Immunizations up to date. - Infectious Disease History:: Denies. - Social history:: Smoking status: . Screenin:53 [facility] ED Fall Risk Assessment (Adult) History of falling in the last 3 months, mb9 including since admission No falls in past 3 months (0 pts) Confusion or Disorientation No (0 pts) Intoxicated or Sedated No (0 pts) Impaired Gait No (0 pts) Mobility Assist Device Used No (0 pt) Altered Elimination No (0 pt) Score/Fall Risk Level 0 - 2 = Low Risk Oriented to surroundings, Maintained a safe environment, Educated pt \T\ family on fall prevention, incl call for assistance when getting out of bed. Abuse screen: Denies threats or abuse. Nutritional screening: No deficits noted. Tuberculosis screening: No symptoms or risk factors identified. Assessment: 13:54 General: Appears in no apparent distress. Behavior is calm, cooperative. Pain: mb9 Complains of pain in right foot Pain radiates to right leg Pain currently is 7 out of 10 on a pain scale. Quality of pain is described as throbbing, Pain began gradually, Is intermittent, Aggravated by increased activity, repositioning, weight bearing. Neuro: Butts Agitation-Sedation Scale (RASS): 0 - Alert and Calm Level of Consciousness is awake, alert, obeys commands, Oriented to person, place, time, situation, Appropriate for age. Cardiovascular: Patient's skin is warm and dry. Respiratory: Airway is patent Respiratory effort is even, unlabored, Respiratory pattern is regular, symmetrical. GI: No signs and/or symptoms were reported involving the gastrointestinal system. : No deficits noted. EENT: No signs and/or symptoms were reported regarding the EENT system. Derm: Skin is pink, warm \T\ dry. Derm: Skin is red. Musculoskeletal: Swelling present in right foot. 15:20 Reassessment: No changes from previously documented assessment. Patient and/or family mb9 updated on plan of care and expected duration. Pain level reassessed. Patient is alert, oriented x 3, equal unlabored respirations, skin warm/dry/pink. 16:42 Reassessment: Called lab to get results. Lab states they never received labs, ERP mb9 notified about delay. Vital Signs: 12:39 BP 158 / 78; Pulse 76; Resp 16; Temp 98; Pulse Ox 98% on R/A; iw 15:03 BP 154 / 94; Pulse 79; Resp 16; Pulse Ox 98% on R/A; mb9 16:42 BP 175 / 80; Pulse 78; Resp 16; Pulse Ox 100% on R/A; mb9 18:32 BP 169 / 80; Pulse 72; Resp 18; Pulse Ox 100% on R/A; mb9 19:34 BP 144 / 53; Pulse 84; Resp 16; Pulse Ox 96% ; dd2 ED Course: 12:13 Patient arrived in ED. im 12:17 Maykel Jules PA is PHCP. cp 12:17 Aba Oscar DO is Attending Physician. cp 12:40 Triage completed. iw 12:40 Arm band placed on. iw 13:04 US Extremity Venous Unilateral Ltd In Process Unspecified. EDMS 13:17 XRAY Chest Pa And Lat (2 Views) In Process Unspecified. EDMS 13:17 XRAY Foot RIGHT 3 View In Process Unspecified. EDMS 13:48 Nuha Castillo, RN is Primary Nurse. kc6 13:53 Primary Nurse role handed off by Nuha Castillo RN mb9 13:53 Aletha Jennings, RN is Primary Nurse. mb9 13:53 Bed in low position. Call light in reach. Side rails up X 1. Provided Education on: [email or web address] press call light if needing anything. Client placed on continuous cardiac and pulse oximetry monitoring. NIBP monitoring applied. clinical research monitor on. 13:53 Initial lab(s) drawn, by me, sent to lab. EKG done, by ED staff, reviewed by Aba harvey Oscar DO. Inserted saline lock: 20 gauge in right antecubital area, using aseptic technique. Blood collected. Flushed with 10 mL NS. 14:01 COVID swab sent to lab. Flu and/or RSV swab sent to lab. mb9 14:01 No provider procedures requiring assistance completed. mb9 18:20 Lizandro Morales MD is Hospitalizing Provider. cp 18:55 Door closed. Noise minimized. Warm blanket given. Pillow given. Cleaned of mb9 incontinence. pt placed on pur wic. 20:23 Patient admitted, IV remains in place. dd2 Administered Medications: 15:03 Drug: MethylPrednisoLONE IVP 80 mg IVP once Route: IVP; Site: right antecubital; mb9 18:23 Follow up: Response: No adverse reaction mb9 15:15 Drug: Albuterol Inhalation 2.5 mg Inhalation once Route: Inhalation; mb9 15:15 Drug: Ipratropium Inhalation Aerosol 0.5 mg Inhalation once Route: Inhalation; mb9 18:31 Drug: Furosemide IVP 40 mg IVP once; give over 2 minutes Route: IVP; Site: right mb9 antecubital; 18:55 Follow up: Response: No adverse reaction mb9 Medication: 13:53 VIS not applicable for this client. mb9 Outcome: 18:21 Decision to Hospitalize by Provider. cp 20:23 Admitted to Med/surg dd2 20:23 Condition: stable 20:23 Instructed on the need for admit, 20:24 Patient left the ED. dd2 Signatures: Dispatcher [employer] Amira Sol RN RN iw Page, Corey, PA Nuha Alva cp, RN RN kc6 Dick, Aletha Lynne, RN RN mb9 Ann-Marie Pimentel DIANA, RN RN dd2
--- NOTE | 2024-03-19 18:22 | EDPHYS ---
Physician Documentation [facility] Name: Mariluz Smith Age: 63 yrs Sex: Female : 1960 Arrival Date: 03/19/2024 Time: 12:09 Bed 6 Private MD: ED Physician Aba Oscar HPI: 03/19 12:50 This 63 yrs old Female presents to ER via Wheelchair with complaints of Cough, cp Chest Congestion, Foot Pain - right. 12:50 The patient or guardian reports cough, that is constant, with productive sputum, cp difficulty breathing. Onset: The symptoms/episode began/occurred 2 week(s) ago. Severity of symptoms: in the emergency department the symptoms are actually worse, moderately. Modifying factors: The symptoms are alleviated by nothing. Associated signs and symptoms: Pertinent positives: chest pain, with cough, Pertinent negatives: diarrhea, fever, rhinorrhea, sore throat, vomiting. Patient reports taking Z-aydin w/o improvement. Historical: - Allergies: 12:40 Codeine; iw 12:40 Milk; iw - PMHx: 12:40 Broken Neck; Glaucoma; Hypercholesterolemia; Hypertensive disorder; TIA; iw - Immunization history:: Adult Immunizations up to date. - Infectious Disease History:: Denies. - Social history:: Smoking status: . ROS: 12:55 Constitutional: Negative for body aches, chills, fever, poor PO intake, cp 12:55 Eyes: Negative for injury, pain, redness, and discharge, cp 12:55 ENT: Negative for drainage from ear(s), ear pain, sore throat, difficulty swallowing, difficulty handling secretions, 12:55 Cardiovascular: Positive for chest pain, with cough, edema, Negative for palpitations, 12:55 Respiratory: Positive for cough, "sounds productive", shortness of breath, on exertion. 12:55 Abdomen/GI: Negative for abdominal pain, vomiting, diarrhea, constipation, 12:55 Neuro: Negative for altered mental status, dizziness, headache, numbness, syncope, weakness, 12:55 All other systems are negative, Exam: 13:00 Constitutional: The patient appears in no acute distress, alert, awake, cp non-diaphoretic, non-toxic, well developed, well nourished, 13:00 Head/Face: Normocephalic, atraumatic. cp 13:00 Eyes: Periorbital structures: appear normal, Conjunctiva: normal, no exudate, no injection, Sclera: no appreciated abnormality, Lids and lashes: appear normal, bilaterally, 13:00 ENT: External ear(s): are unremarkable, Nose: is normal, Mouth: Lips: moist, Oral mucosa: moist, Posterior pharynx: Airway: no evidence of obstruction, patent, Voice: is normal, 13:00 Neck: ROM/movement: is normal, is supple, without pain, no range of motions limitations, 13:00 Chest/axilla: Inspection: normal, 13:00 Cardiovascular: Rate: normal, Rhythm: regular, Edema: pedal edema, moderate right foot and mild left foot, JVD: is not appreciated, 13:00 Respiratory: the patient does not display signs of respiratory distress, Respirations: labored breathing, that is mild, Breath sounds: bronchial sounds, are heard in the left posterior lower lobe, right posterior middle lobe and right posterior lower lobe, stridor, is not appreciated, 13:00 Abdomen/GI: Inspection: abdomen appears normal, Palpation: abdomen is soft and non-tender, in all quadrants, 13:00 Skin: no rash present. 13:00 Neuro: Orientation: to person, place \\T\\ time. Mentation: is normal, Motor: moves all fours, strength is normal, Sensation: is normal, 14:06 ECG was reviewed by the Attending Physician. cp Vital Signs: 12:39 BP 158 / 78; Pulse 76; Resp 16; Temp 98; Pulse Ox 98% on R/A; iw 15:03 BP 154 / 94; Pulse 79; Resp 16; Pulse Ox 98% on R/A; mb9 16:42 BP 175 / 80; Pulse 78; Resp 16; Pulse Ox 100% on R/A; mb9 18:32 BP 169 / 80; Pulse 72; Resp 18; Pulse Ox 100% on R/A; mb9 19:34 BP 144 / 53; Pulse 84; Resp 16; Pulse Ox 96% ; dd2 MDM: 12:39 Medical Screening Exam initiated cp 14:00 Differential Diagnosis: Bronchitis Influenza Viral Syndrome Pneumonia Other CHF, cp pulmonary edema, DC. 18:30 Data reviewed: vital signs, nurses notes, lab test result(s), EKG, radiologic studies, cp plain films, and as a result, I will admit patient. 18:30 Consideration of Admission/Observation Patient was admitted/placed on observation. cp Management of patient was discussed with the following: Hospitalist: Corrina APONTE, will admit after discussion. I considered the following discharge prescriptions or medication management in the emergency department Medications were administered in the Emergency Department. See MAR. Independent interpretation of the following test(s) in the Emergency Department EKG: See my EKG interpretation above. 18:30 Care significantly affected by the following chronic conditions: Hypertension. cp 18:30 Counseling: I had a detailed discussion with the patient and/or guardian regarding the cp historical points, exam findings, and any diagnostic results supporting the discharge/admit diagnosis, lab results, radiology results, the need for further work-up and treatment in the hospital. 03/19 12:45 Order name: SARS RAPID; Complete Time: 14:39 cp 03/19 12:45 Order name: Influenza Screen (a \\T\\ B); Complete Time: 14:39 cp 03/19 12:45 Order name: Strep 03/19 12:45 Order name: Basic Metabolic Panel; Complete Time: 17:55 cp 03/19 17:55 Interpretation: Normal except: CL 109; GLUC 168; BUN 28; CRE 1.47; GFR 39. cp 03/19 12:45 Order name: CBC with Diff; Complete Time: 17:55 cp 03/19 17:55 Interpretation: Normal except: RBC 2.69; HGB 8.4; HCT 24.9; ESCOBAR% 88.4; LYM% 7.4; MN% cp 2.7; NEUT A 8.7. 03/19 12:45 Order name: LFT's; Complete Time: 17:55 cp 03/19 17:56 Interpretation: Normal except: AST < 10; ALK 122; ALB 2.4; GLOB 4.3; A/G 0.6. 03/19 12:45 Order name: Magnesium; Complete Time: 17:55 cp 03/19 12:45 Order name: NT PRO-BNP; Complete Time: 17:55 cp 03/19 17:57 Interpretation: NT PRO-BNP 16569; Reviewed. 03/19 12:45 Order name: Troponin HS; Complete Time: 17:55 cp 03/19 12:45 Order name: Lactate w/ 2H reflex if indic.; Complete Time: 14:39 cp 03/19 14:40 Interpretation: Reviewed. cp 03/19 17:11 Order name: Throat Culture EDMS 03/19 19:15 Order name: Basic Metabolic Panel EDSC 03/19 19:15 Order name: CBC with Automated Diff EDMS 03/19 19:15 Order name: Creatine Phosphokinase EDSC 03/19 19:15 Order name: Magnesium EDMS 03/19 19:15 Order name: NT PRO-BNP EDMS 03/19 19:15 Order name: Phosphorus EDMS 03/19 19:15 Order name: Thyroid Stimulating Hormone EDMS 03/19 19:15 Order name: Urinalysis w/ reflexes EDMS 03/19 19:15 Order name: Lipid Profile EDSC 03/19 19:15 Order name: Lipid Profile EDSC 03/19 19:15 Order name: Troponin High Sensitivity EDSC 03/19 19:15 Order name: Troponin High Sensitivity EDSC 03/19 19:15 Order name: Troponin High Sensitivity EDSC 03/19 19:15 Order name: Troponin High Sensitivity EDSC 03/19 12:45 Order name: XRAY Chest Pa And Lat (2 Views); Complete Time: 14:39 cp 03/19 14:39 Interpretation: Report reviewed. cp 03/19 12:45 Order name: XRAY Foot RIGHT 3 View; Complete Time: 14:39 cp 03/19 14:40 Interpretation: Report reviewed. cp 03/19 12:45 Order name: US Extremity Venous Unilateral Ltd; Complete Time: 14:39 cp 03/19 14:40 Interpretation: Report reviewed. 03/19 19:17 Order name: KARIE Transesoph. Echo EDSC 03/19 19:15 Order name: CONS Physician Consult EDSC 03/19 12:45 Order name: Cardiac monitoring; Complete Time: 14:00 cp 03/19 12:45 Order name: EKG - Nurse/Tech; Complete Time: 14:00 cp 03/19 12:45 Order name: IV Saline Lock; Complete Time: 14:01 cp 03/19 12:45 Order name: Labs collected and sent; Complete Time: 14:01 cp 03/19 12:45 Order name: O2 Per Protocol; Complete Time: 14:01 cp 03/19 12:45 Order name: O2 Sat Monitoring; Complete Time: 14:01 cp EC:06 Rate is 83 beats/min. Rhythm is regular. WV interval is normal. QRS interval is normal. cp QT interval is prolonged at 428 msec. Interpreted by me. Reviewed by me. Administered Medications: 15:03 Drug: MethylPrednisoLONE IVP 80 mg IVP once Route: IVP; Site: right antecubital; mb9 18:23 Follow up: Response: No adverse reaction mb9 15:15 Drug: Albuterol Inhalation 2.5 mg Inhalation once Route: Inhalation; mb9 15:15 Drug: Ipratropium Inhalation Aerosol 0.5 mg Inhalation once Route: Inhalation; mb9 18:31 Drug: Furosemide IVP 40 mg IVP once; give over 2 minutes Route: IVP; Site: right mb9 antecubital; 18:55 Follow up: Response: No adverse reaction mb9 Disposition: 17:29 I was immediately available on-site in the Emergency Department for consultation in the ms3 care of the patient. Disposition Summary: 03/19/24 18:21 Hospitalization Ordered Notes: Hospitalization Status: Inpatient Admission cp Provider: Lizandro Morales cp Location: Telemetry/MedSurg (Inpatient) cp Condition: Stable cp Problem: an acute exacerbation cp Symptoms: have improved cp Bed/Room Type: Standard cp Room Assignment: 215(03/19/24 19:28) vc1 Diagnosis - Unspecified combined systolic (congestive) and diastolic (congestive) heart failure cp - Dyspnea cp - Cough cp Forms: - Medication Reconciliation Form cp - SBAR form cp - Leadership Thank You Letter cp Signatures: Dispatcher [employer] EDMS Amira Frias RN RN iw Page, Corey, PA PA cp Aba Oscar DO DO ms3 Marlen Currie RN RN vc1 Aletha Jennings RN RN mb9 Corrections: (The following items were deleted from the chart) 12:46 12:46 SARS-COV-2 Antigen Rapid+I.LAB.BRZ ordered. EDMS EDMS 12:46 12:46 Influenza Screen (A \\T\\ B)+BA.LAB.BRZ ordered. EDMS EDMS 12:46 12:46 Group A Streptococcus Rapid Sc+BA.LAB.BRZ ordered. EDMS EDMS 12:46 12:46 BASIC METABOLIC PANEL+C.LAB.BRZ ordered. EDMS EDMS 12:46 12:46 CBC+H.LAB.BRZ ordered. EDMS EDMS 12:46 12:46 HEPATIC FUNCTION+C.LAB.BRZ ordered. EDMS EDMS 12:46 12:46 MAGNESIUM+C.LAB.BRZ ordered. EDMS EDMS 12:46 12:46 PROBNP+C.LAB.BRZ ordered. EDMS EDMS 12:46 12:46 Troponin High Sensitivity+C.LAB.BRZ ordered. EDMS EDMS 12:46 12:46 Foot Right 3 View+RAD.RAD.BRZ ordered. EDMS EDMS 12:46 12:46 Extremity Venous Uni Ltd+US.RAD.BRZ ordered. EDMS EDMS 12:46 12:46 LACTATE+C.LAB.BRZ ordered. EDMS EDMS 19:28 18:21 cp vc1
[2024-03-19] MEDS ORDERED: ACETAMINOPHEN 325 MG TABLET PO PRN (19:03)
[2024-03-19] MEDS ORDERED: ZOLPIDEM TARTRATE 5 MG TABLET PO PRN (19:03)
[2024-03-19] MEDS ORDERED: ONDANSETRON 4 MG (ODT) TAB PO PRN (19:03)
--- NOTE | 2024-03-19 19:22 | P.HP ---
Certification for Inpatient With expected LOS: <2 Midnights Patient will require the following post-hospital care: None Practitioner: I am a practitioner with admitting privileges, knowledge of patient current condition, hospital course, and medical plan of care. Services: Services provided to patient in accordance with Admission requirements found in Title 42 Section 412.3 of the Code of Federal Regulations Patient History Date of Service: 03/19/24 Reason for admission: acute on chronic heart failure History of Present Illness: 63-year-old woman with a past medical history significant for congestive heart failure, hypertension, TIA, and seasonal allergies presented to the emergency department complaining of cough, chest congestion, and right foot swelling x 2 weeks. The patient reports chest congestion that started 2 weeks ago and she was provided a Z-John that she finished on 03/17/2024. Also, the patient reports she noticed her right foot swelling on 03/17/2024. She states her last heart failure exacerbation was in 2019. She had an echocardiogram performed in 2021. Patient states that even after completing the Z-John, she still has trouble ambulating without becoming short of breath. She states she stopped taking Lasix twice daily on 03/17/2024. The patient was giving 1 dose of Lasix upon arrival to the emergency department tonight. Allergies codeine Allergy (Verified 05/22/19 03:39) Anaphylaxis Latex, Natural Rubber Allergy (Verified 05/22/19 03:39) see comment milk Allergy (Verified 05/22/19 03:39) see comment Milk Containing Products (Dairy) [Milk Containing Products] Allergy (Verified 05/22/19 03:39) see comment Home medications list reviewed: Yes Home Medications: Aspirin 81 mg PO DAILY 04/15/21 Atorvastatin Calcium 20 mg PO DAILY 04/15/21 Brimonidine Tartrate/Timolol [Combigan 0.2%-0.5% Eye Drops] 5 ml EACH EYE BID 04/15/21 Folic Acid 800 mcg PO DAILY 07/24/21 Loratadine [Claritin] 10 mg PO DAILY 07/24/21 Furosemide 40 mg PO BID #60 tablet 07/25/21 Metoprolol Tartrate [Lopressor*] 25 mg PO BID 6AM 6PM #60 tab 07/25/21 - Past Medical/Surgical History Diabetic: Yes -: cataracts -: macular degeneration -: neck fx -: Hypertension -: Chronic diastolic congestive heart failure -: TIA -: cataract surgery bilateral eyes -: neck sx -: finger sx Psychosocial/ Personal History: Patient lives at home, cares for her 2 grandchildren - Family History Mother -: Stroke Father -: Heart disease, Hypertension - Social History Smoking Status: Former smoker CD- Drugs: No Caffeine use: Yes Review of Systems General: Weakness Respiratory: Cough, SOB with Excertion Gastrointestinal: No Distention Musculoskeletal: Foot Pain (right foot edema) Physical Examination - Physical Exam General: Alert, Oriented x3 HEENT: Atraumatic, Normocephalic Neck: JVD not distended Respiratory: Normal air movement Cardiovascular: No gallops, No murmurs Gastrointestinal: Normal bowel sounds, Non-distended Musculoskeletal: No tenderness (right foot), No warmth (right foot), Swelling (right foot) Neurological: Normal speech Urinary: Other (pure wick intact) - Studies Laboratory Data (last 24 hrs) 03/19/24 03/19/24 16:50 16:50 WBC 9.80 Hgb 8.4 L Hct 24.9 L Plt Count 361 Sodium 140 Potassium 3.7 BUN 28 H Creatinine 1.47 H Glucose 168 H Magnesium 2.3 Total Bilirubin 0.6 AST < 10 L ALT 16 Alkaline Phosphatase 122 H Microbiology Data (last 24 hrs): 03/19/24 16:53 Throat Group A Streptococcus Rapid Screen - Final 03/19/24 13:57 Nasopharnyx Influenza Type A Antigen Screen - Final 03/19/24 13:57 Nasopharnyx Influenza Type B Antigen Screen - Final Assessment and Plan - Problems (Diagnosis) (1) Acute on chronic heart failure Onset Date: ~03/19/24 Current Visit: Yes Status: Acute - Plan Acute on chronic heart failureLasix twice daily, echocardiogram ordered (last performed in 2021), cardiology consulted, on telemetry, admitted as inpatient. Patient should have daily weights with fluid restriction. Continue with aspirin daily, and resume home medication of metoprolol. Will continue to monitor BNP. Elevation of right foot to improve edema. - Advance Directives Does patient have a Living Will: No Does patient have a Durable POA for Healthcare: No - Code Status/Comfort Care Code Status: Full Code
[2024-03-19] MEDS: FUROSEMIDE 40 MG TABLET PO SCH (21:19)
[2024-03-19] MEDS: ATORVASTATIN 40 MG TAB PO SCH (22:14)
[2024-03-20 04:50] LABS: Absolute Lymphocytes (CBC) 0.7 K/uL (0.7-4.9); Absolute Monocytes 0.2 K/uL (0.1-1.3); Basophils % 0.5 % (0-1.3); Eosinophils % 0.1 % (0-4.4); Hematocrit 26.3 % (36.0-45.0); Hemoglobin 9.1 g/dL (12.0-15.0); Lymphocytes % 9.2 % (15.3-44.8); MCH 31.7 pg (27.0-35.0); MCHC 34.6 g/dL (32.0-36.0); MCV 91.5 fL (80-100); MPV 8.5 fL (7.6-11.3); Monocytes % 2.5 % (3.3-12.3); Neutrophils % 87.7 % (41.7-73.7); Nucleated Red Blood Cells % 0.1 % (0-0); Platelets 367 thou/uL (152-406); RBC Red Blood Cell Count 2.88 M/uL (3.86-4.86); Red Cell Distribution Width 14.5 % (12.1-15.2)
[2024-03-20 05:39] VITALS: BMI 32.9
[2024-03-20 06:00] LABS: Anion Gap 11.6 mEq/L (5.0-15.0); Magnesium 2.3 mg/dL (1.6-2.4); Phosphorus 4.8 mg/dL (2.5-4.9); Potassium 3.6 mEq/L (3.5-5.1); Thyroid Stimulating Hormone 0.56 uIU/mL (0.358-3.740)
[2024-03-20] MEDS: METOPROLOL TAR 25 MG TAB PO SCH (06:41)
[2024-03-20 06:58] LABS: Specific Gravity 1.012 (1.005-1.030); Sqamous Epithelial None Seen /HPF (None Seen); Urine Bacteria None Seen /HPF (<20); Urine Bilirubin NEGATIVE (Negative); Urine Blood Trace (Negative); Urine Clarity Clear (Clear); Urine Color Light-Yellow (Yellow); Urine Culture Reflex Order NOT NEEDED; Urine Glucose 3+ (Negative); Urine Ketones NEGATIVE (Negative); Urine Microscopic Reflex YN ORDER UMIC; Urine Nitrite NEGATIVE (Negative); Urine Protein 3+ (Negative); Urine RBC None Seen /HPF (None Seen); Urine Urobilinogen Normal (Normal); Urine WBC <5 /HPF (<5); Urine pH 6.5 (5.0-7.0)
[2024-03-20 07:39] LABS: Band Neutrophils 1 % (0-1); Blood Morphology Comment NOT SEEN (NOT SEEN); Differential Total Cells Count 100; Lymphocytes 7 % (15-42); Monocytes 4 % (0-10); Myelocytes 1 % (0-0); Platelet Estimate ADEQ; Segmented Neutrophils 87 % (40-80)
[2024-03-20] MEDS: BRIMONIDINE TARTRATE OPTH SCH (09:00)
[2024-03-20] MEDS ORDERED: ATORVASTATIN 40 MG TAB PO SCH (09:00)
[2024-03-20] MEDS: TIMOLOL OPTH SCH (09:00)
[2024-03-20] MEDS: LORATADINE 10 MG TAB PO SCH (09:15)
[2024-03-20] MEDS: ASPIRIN 81 MG CHEWABLE TABLET PO SCH (09:15)
--- NOTE | 2024-03-20 11:09 | P.PN ---
Subjective Date of Service: 03/20/24 Chief Complaint: acute on chronic heart failure Subjective: Improving (mild wheeze, states nebs helpful, wet cough) Review of Systems 10-point ROS is otherwise unremarkable General: As per HPI Eyes: Unremarkable ENT: Unremarkable Respiratory: Cough, SOB with Excertion, Sputum (yellow to green to brown) Cardiovascular: Unremarkable Gastrointestinal: Unremarkable Genitourinary: Unremarkable Musculoskeletal: Unremarkable Integumentary: Unremarkable Neurological: Unremarkable Lymphatics: Unremarkable Physical Examination - Vital Signs Temperature: 97.7 F Blood Pressure: 134/67 Pulse: 68 Respirations: 18 Pulse Ox (%): 97 - Physical Exam General: Alert, In no apparent distress, Oriented x3 HEENT: Atraumatic, Normocephalic Neck: Supple Respiratory: Crackles/rales, Expiratory wheezes Cardiovascular: Normal pulses Capillary refill: <2 Seconds Gastrointestinal: Soft and benign, Non-distended Musculoskeletal: No clubbing, No swelling Integumentary: No rashes Neurological: Normal speech, Normal tone, Normal affect Lymphatics: No axilla or inguinal lymphadenopathy External genitalia: Deferred Rectal: Deferred - Studies Laboratory Data (last 24 hrs) 03/19/24 03/19/24 16:50 16:50 WBC 9.80 Hgb 8.4 L Hct 24.9 L Plt Count 361 Sodium 140 Potassium 3.7 BUN 28 H Creatinine 1.47 H Glucose 168 H Magnesium 2.3 Total Bilirubin 0.6 AST < 10 L ALT 16 Alkaline Phosphatase 122 H Microbiology Data (last 24 hrs): 03/19/24 16:53 Throat Group A Streptococcus Rapid Screen - Final 03/19/24 13:57 Nasopharnyx Influenza Type A Antigen Screen - Final 03/19/24 13:57 Nasopharnyx Influenza Type B Antigen Screen - Final Assessment And Plan - Plan Assessment and Plan - Problems (Diagnosis) (1) Acute on chronic heart failure Onset Date: ~03/19/24 Current Visit: Yes Status: Acute (2) Acute Bronchitis Acute on chronic heart failureLasix twice daily, echocardiogram ordered (last performed in 2021), cardiology consulted telemetry daily weights with fluid restriction. Continue with aspirin daily resume metoprolol. Will continue to monitor BNP. Elevation of right foot to improve edema. Brovana BID Atrovent q6h - Advance Directives Does patient have a Living Will: No Does patient have a Durable POA for Healthcare: No - Code Status/Comfort Care Code Status: Full Code
--- NOTE | 2024-03-20 12:36 | P.CNS ---
Date of Consult: 03/20/24 Chief Complaint: acute on chronic heart failure History of Present Illness: Patient with PMH of HTN, Heart failure, presented with worsening SOB, lower extremities edema and cough with congestion, denies chest pain, no palpitations, no syncope. Allergies codeine Allergy (Verified 05/22/19 03:39) Anaphylaxis Latex, Natural Rubber Allergy (Verified 05/22/19 03:39) see comment milk Allergy (Verified 05/22/19 03:39) see comment Milk Containing Products (Dairy) [Milk Containing Products] Allergy (Verified 05/22/19 03:39) see comment Home medications list reviewed: Yes Home Medications: Aspirin 81 mg PO DAILY 04/15/21 Atorvastatin Calcium 40 mg PO DAILY 04/15/21 Brimonidine Tartrate/Timolol [Combigan 0.2%-0.5% Eye Drops] 5 ml EACH EYE BID 04/15/21 Folic Acid 800 mcg PO DAILY 07/24/21 Loratadine [Claritin] 10 mg PO DAILY 07/24/21 Furosemide 40 mg PO BID #60 tablet 07/25/21 Metoprolol Tartrate [Lopressor*] 25 mg PO BID 6AM 6PM #60 tab 07/25/21 - Past Medical/Surgical History Diabetic: Yes -: cataracts -: macular degeneration -: neck fx -: Hypertension -: Chronic diastolic congestive heart failure -: TIA -: cataract surgery bilateral eyes -: neck sx -: finger sx Psychosocial/ Personal History: Patient lives at home, cares for her 2 grandchildren - Family History Mother Medical History: Stroke Father Medical History: Heart disease, Hypertension - Social History Smoking Status: Former smoker Alcohol use: No CD- Drugs: No Caffeine use: Yes Place of Residence: Home Review of Systems 10-point ROS is otherwise unremarkable Physical Examination Temp Pulse Resp BP Pulse Ox 97.7 F 68 18 134/67 97 03/20/24 11:12 03/20/24 11:12 03/20/24 11:12 03/20/24 11:12 03/20/24 11:12 General: Alert, In no apparent distress HEENT: Atraumatic, PERRLA, Mucous membr. moist/pink, EOMI, Sclerae nonicteric Neck: Supple, 2+ carotid pulse no bruit, No LAD, Without JVD or thyroid abnormality Respiratory: Clear to auscultation bilaterally, Normal air movement Cardiovascular: Regular rate/rhythm, Normal S1 S2 Gastrointestinal: Normal bowel sounds, No tenderness Musculoskeletal: No tenderness Integumentary: No rashes Neurological: Normal gait, Normal speech, Normal tone, Normal affect Lymphatics: No axilla or inguinal lymphadenopathy Laboratory Data (last 24 hrs) 03/19/24 03/19/24 16:50 16:50 WBC 9.80 Hgb 8.4 L Hct 24.9 L Plt Count 361 Sodium 140 Potassium 3.7 BUN 28 H Creatinine 1.47 H Glucose 168 H Magnesium 2.3 Total Bilirubin 0.6 AST < 10 L ALT 16 Alkaline Phosphatase 122 H - Problems (1) Acute on chronic diastolic heart failure Current Visit: Yes Status: Acute Plan: change Lasix to 40 mg IV BID Monitor input and output closely Monitor and correct electrolytes. change Metoprolol to Coreg 6.25 mg po BID (2) HTN (hypertension) Current Visit: No Status: Chronic Plan: change metoprolol to coreg 6.25 mg po BID Qualifiers: Hypertension type: primary hypertension Qualified Code(s): I10 - Essential (primary) hypertension
[2024-03-20] MEDS: IPRATROPIUM BROM 0.5MG/2.5ML NEB SCH (13:11)
--- NOTE | 2024-03-20 14:15 | ECHO ---
HEIGHT: 5 ft 2 in WEIGHT: 180 lb 0 oz DATE OF STUDY: 03/20/[address]: Corrina Ritchie PA-C 2-DIMENSIONAL: YES M.MODE: YES DOPPLER: YES COLOR FLOW: YES TDS: PORTABLE: YES DEFINITY: BUBBLE STUDY: DIAGNOSIS: CONGESTIVE HEART FAILURE CARDIAC HISTORY: CATHERIZATION: NO SURGERY: NO PROSTHETIC VALVE: NO PACEMAKER: NO MEASUREMENTS (cm) DIASTOLIC (NORMALS) SYSTOLIC (NORMALS) IVSd 1.1 (0.6-1.2) LA Diam 2.6 (1.9-4.0) LVEF 65% LVIDd 4.3 (3.5-5.7) LVIDs 2.5 (2.0-3.5) %FS LVPWd 1.3 (0.6-1.2) Ao Diam 2.6 (2.0-3.7) 2 DIMENSIONAL ASSESSMENT: RIGHT ATRIUM: NORMAL LEFT ATRIUM: NORMAL RIGHT VENTRICLE: NORMAL LEFT VENTRICLE: NORMAL TRICUSPID VALVE: MILD TRICUSPID REGURGITATION MITRAL VALVE: NORMAL, MILD MITRAL ANNULAR CALCIFICATION PULMONIC VALVE: NORMAL AORTIC VALVE: NORMAL PERICARDIAL EFFUSION: NONE AORTIC ROOT: NORMAL LEFT VENTRICULAR WALL MOTION: NORMAL DOPPLER/COLOR FLOW: GRADE II DIASTOLIC DYSFUNCTION COMMENTS: 1. NORMAL LEFT VENTRICULAR SYSTOLIC FUNCTION, EJECTON FRACTION 65%, NORMAL WALL MOTION 2. GRADE II DIASTOLIC DYSFUNCTION 3. MILD ELEVATED FILLING PRESSURE (RIGHT ATRIUM 10-15 mmHg) TECHNOLOGIST: JERSON RAMÍREZ
[2024-03-20] MEDS: ARFORMOTEROL TARTRATE 15 MCG/2 ML VIAL.NEB NEB SCH (19:45)
[2024-03-21 05:07] LABS: Anion Gap 9.4 mEq/L (5.0-15.0); Potassium 3.4 mEq/L (3.5-5.1)
--- NOTE | 2024-03-21 07:17 | P.PN ---
Date of Service: 03/21/24 Subjective Chief Complaint: acute on chronic heart failure Shortness of breath with with exertion, lower extremity edema, Productive cough Review of Systems 10-point ROS is otherwise unremarkable unless listed in HPI Physical Examination - Vital Signs Reviewed - Physical Exam General: Alert, In no apparent distress, Oriented x3 HEENT: Atraumatic, Normocephalic Neck: Supple Respiratory: Crackles/rales, Expiratory wheezes Cardiovascular: Normal pulses, lower extremity edema Capillary refill: <2 Seconds Gastrointestinal: Soft and benign, Non-distended Musculoskeletal: No clubbing, No swelling Integumentary: No rashes Neurological: Normal speech, Normal tone, Normal affect Lymphatics: No axilla or inguinal lymphadenopathy Assessment and Plan - Problems (Diagnosis) Acute on chronic heart failure Acute hypoxic respiratory failure secondary to decompensated heart failure Elevated BNP Onset Date: ~03/19/24 Current Visit: Yes Status: Acute Cardiology Acute Bronchitis Acute on chronic heart failureLasix twice daily, echocardiogram ordered (last performed in 2021), . NORMAL LEFT VENTRICULAR SYSTOLIC FUNCTION, EJECTON FRACTION 65%, NORMAL WALL MOTION 2. GRADE II DIASTOLIC DYSFUNCTION 3. MILD ELEVATED FILLING PRESSURE (RIGHT ATRIUM 10-15 mmHg cardiology consulted telemetry daily weights with fluid restriction. Continue with aspirin daily resume metoprolol. Will continue to monitor BNP. Elevation of right foot to improve edema. Brovana BID Atrovent q6h LAUREN, CKD, unknown baseline microcytic anemia Nephrology consult Trend kidney function hypokalemia Trend electrolytes, replace as needed - Advance Directives Does patient have a Living Will: No Does patient have a Durable POA for Healthcare: No - Code Status/Comfort Care Code Status: Full Code Time with patient 35 minutes
[2024-03-21] MEDS: POTASSIUM CL SA 10 MEQ TAB PO ONE (09:48)
--- NOTE | 2024-03-21 12:33 | RAD REPORT ---
Procedure: Chest Single View HISTORY: Chest pain COMPARISON: March 17, 2024 FINDINGS: The lungs appear clear of acute infiltrate. No significant pleural effusion noted. The heart is moderately enlarged. IMPRESSION: No acute abnormality is displayed.
[2024-03-21 12:56] LABS: Specific Gravity 1.014 (1.005-1.030); Transitional Epithelial <5 /HPF (None Seen); Urine Bacteria <20 /HPF (<20); Urine Bilirubin NEGATIVE (Negative); Urine Blood Trace (Negative); Urine Clarity Turbid (Clear); Urine Color Light-Yellow (Yellow); Urine Culture Reflex Order NOT NEEDED; Urine Glucose 1+ (Negative); Urine Ketones NEGATIVE (Negative); Urine Microscopic Reflex YN ORDER UMIC; Urine Nitrite NEGATIVE (Negative); Urine Protein 3+ (Negative); Urine RBC <5 /HPF (None Seen); Urine Urobilinogen Normal (Normal); Urine pH 6.5 (5.0-7.0)
--- NOTE | 2024-03-21 13:07 | P.PN ---
Subjective Date of Service: 03/21/24 Chief Complaint: acute on chronic heart failure Subjective: No new changes, No C/O voiced, Tolerating diet, Ambulating, Improving Review of Systems 10-point ROS is otherwise unremarkable Physical Examination - Vital Signs Temperature: 97.3 F Blood Pressure: 185/81 Pulse: 65 Respirations: 19 Pulse Ox (%): 97 - Physical Exam General: Alert, In no apparent distress HEENT: Atraumatic, PERRLA, EOMI Neck: Supple, JVD not distended Respiratory: Clear to auscultation bilaterally, Normal air movement Cardiovascular: Regular rate/rhythm, Normal S1 S2 Gastrointestinal: Normal bowel sounds, No tenderness Musculoskeletal: No tenderness Integumentary: No rashes Neurological: Normal speech, Normal tone, Normal affect Lymphatics: No axilla or inguinal lymphadenopathy - Studies Microbiology Data (last 24 hrs): 03/19/24 16:53 Throat Group A Streptococcus Rapid Screen - Final 03/19/24 16:53 Throat Culture & Sensitivity - Final NORMAL UPPER RESPIRATORY MYRIAM GROWN. Medications List Reviewed: Yes Assessment And Plan - Current Problems (Diagnosis) (1) Acute on chronic diastolic heart failure Current Visit: Yes Status: Acute Plan: change Lasix to 40 mg IV BID Monitor input and output closely Monitor and correct electrolytes. change Metoprolol to Coreg 6.25 mg po BID (2) HTN (hypertension) Current Visit: No Status: Chronic Plan: change metoprolol to coreg 6.25 mg po BID Qualifiers: Hypertension type: primary hypertension Qualified Code(s): I10 - Essential (primary) hypertension
--- NOTE | 2024-03-21 14:15 | RAD REPORT ---
EXAMINATION: US RENAL ULTRASOUND CLINICAL INDICATION: LAUREN TECHNIQUE: Real-time ultrasonography of the abdomen was performed. COMPARISON: 10/19/2022 FINDINGS: RIGHT KIDNEY: Right renal length measurement: 10.6 x 5.8 x 5.2 cm. Normal in echogenicity and size. N o calculus, solid mass or hydronephrosis. LEFT KIDNEY: Left renal length measurement: 10.3 x 5.7 x 5.1 cm. Normal in echogenicity and size. No calculus, solid mass or hydronephrosis. URINARY BLADDER: Incompletely distended without gross abnormality detected. ADDITIONAL FINDINGS: None. IMPRESSION: Unremarkable renal ultrasound.
--- NOTE | 2024-03-21 14:56 | EKG ---
Test Date: 2024-03-19 Test Time: 13:57:44 [employer]: MANNY MEASUREMENT RESULTS: Intervals: Rate: 83 OR: 184 QRSD: 70 QT: 428 QTc: 502 [place]: P: 60 OR: 184 QRS: 87 T: 97 INTERPRETIVE STATEMENTS: Normal sinus rhythm Prolonged QT Abnormal ECG Compared to ECG 07/23/2021 21:16:59 Right-axis deviation no longer present Electronically Signed On 03-21-24 14:48:18 CDT by Dileep Flores
--- NOTE | 2024-03-21 16:10 | CON ---
Date of Consultation: 03/21/2024 Reason For Consultation: Elevated BUN and creatinine, electrolyte imbalance. History Of Present Illness: This is a pleasant 63-year-old female with significant past medical hist ory of congestive heart failure nonischemic started after COVID, hypertension, hyperlipidemia, TIA, c hronic kidney disease, baseline creatinine 1.4 as of April 2023 with a GFR of 40. Patient came to the hospital complaining of cough, chest tightness and leg swelling started 2 weeks ago. The patien t denied taking any nonsteroidal. No recent change in her medication. Patient at home being on Lasi x 40 mg b.i.d., but did not see any response. Upon arrival to the hospital, the patient found to hav e creatinine of 1.4. Today, her creatinine up to 2.2. For that reason, we have been consulted. The patient's GFR drop to 23. Her BNP continued to rise. Past Medical History: Includes: 1.TIA. 2.Hypertension. 3.Nonischemic congestive heart failure. Home Medications: Include aspirin, atorvastatin, breathing treatment, loratadine, Lasix 40 b.i.d., m etoprolol. Past Surgical History: Include neck surgery, cataract, finger surgery. Family History: Positive for CVA and CAD. Social History: Ex-smoker. Occasional alcohol. Denied drugs abuse. Review of Systems: Head and Neck: No red eye. No ear pain. GI: No nausea, no vomiting. : No polyuria. Has foamy urine and nocturia. WEIGHER BULKER: No vaginal discharge. Respiratory: Has shortness of breath. Cardiovascular: Has leg swelling, has orthopnea. Endocrine: No polydipsia. Skin: No rash. Physical Examination: Vital Signs: When I saw the patient, blood pressure 185/80, pulse of 65, afebrile. Chest: Crackles, bilateral. Heart: S1, S2. Systolic murmur. Abdomen: Soft, nontender. Extremity: Trace edema. Neurologic: Alert. No focality. Diagnostic Data: Chest x-ray cardiomegaly, mild congestion. Echocardiogram, ejection fraction of 65 %. Grade 2 diastolic dysfunction. The patient seen by Cardiology, recommended to continue diuresis. Assessment And Plan: 1.Acute kidney injury secondary to possible cardiorenal. Look to me patient normal volume to the dr y side. I am going to decrease Lasix daily and we will follow up the patient. I am going to go ahea d and send for workup with the presence of anemia to rule out any light chain disease. 2.Hypertension with the presence of acute kidney injury. Decrease Lasix. 3.Anasarca, possible secondary to cardiorenal. The patient diurese. Currently on room air. I am g oing to send for TSH and protein creatinine for further evaluation of other causes. Decrease Lasix t o once a day. 4.Anemia, possible secondary to chronic kidney disease with the presence of acute kidney injury to r ule out light chain disease. I am going to go ahead and send for anemia workup, serum protein electr ophoresis. 5.Congestive heart failure with exacerbation as by Cardiology. Thank you Dr. Fernandez for allowing us to participate in the care of your patient. MUSTAPHA Voice ID: [id number] Report ID: [id number]
[2024-03-21] MEDS: IPRATROPIUM BROM 0.5MG/2.5ML NEB SCH (20:06)
[2024-03-21] MEDS ORDERED: NA CHLORIDE 0.9% 250 ML ONE (21:01)
[2024-03-21] MEDS: NA CHLORIDE 0.9% 250 ML IV ONE (21:38)
[2024-03-21 23:20] VITALS: O2SAT 99
[2024-03-22 07:28] LABS: Percent Reticulocyte Count 1.93 % (0.4-2.05); RBC Red Blood Cell Count 2.81 M/uL (3.86-4.86)
[2024-03-22 08:09] LABS: Thyroid Stimulating Hormone 2.58 uIU/mL (0.358-3.740); Uric Acid 10.2 mg/dL (2.6-6.0)
[2024-03-22] MEDS: FUROSEMIDE 40 MG TABLET PO SCH (08:49)
[2024-03-22 08:50] VITALS: BP 146/67
[2024-03-22 09:55] VITALS: TEMP 98.4
--- NOTE | 2024-03-22 10:14 | P.PN ---
Subjective Date of Service: 03/22/24 Chief Complaint: acute on chronic heart failure Subjective: No new changes, No C/O voiced, Tolerating diet, Ambulating, Improving Review of Systems 10-point ROS is otherwise unremarkable Physical Examination - Vital Signs Temperature: 98.4 F Blood Pressure: 146/67 Pulse: 65 Respirations: 16 Pulse Ox (%): 99 - Physical Exam General: Alert, In no apparent distress HEENT: Atraumatic, PERRLA, EOMI Neck: Supple, JVD not distended Respiratory: Clear to auscultation bilaterally, Normal air movement Cardiovascular: Regular rate/rhythm, Normal S1 S2 Gastrointestinal: Normal bowel sounds, No tenderness Musculoskeletal: No tenderness Integumentary: No rashes Neurological: Normal speech, Normal tone, Normal affect Lymphatics: No axilla or inguinal lymphadenopathy - Studies Microbiology Data (last 24 hrs): 03/19/24 16:53 Throat Group A Streptococcus Rapid Screen - Final 03/19/24 16:53 Throat Culture & Sensitivity - Final NORMAL UPPER RESPIRATORY MYRIAM GROWN. Medications List Reviewed: Yes Assessment And Plan - Current Problems (Diagnosis) (1) Acute on chronic diastolic heart failure Current Visit: Yes Status: Acute Plan: continue Lasix 40 mg po daily add Aldactone 25 mg daily add Losartan 25 mg daily change Metoprolol to Coreg 12.5 mg po BID (2) HTN (hypertension) Current Visit: No Status: Chronic Plan: adjust medications as above. Qualifiers: Hypertension type: primary hypertension Qualified Code(s): I10 - Essential (primary) hypertension
--- NOTE | 2024-03-22 10:20 | P.DS ---
Admission Date: 03/19/24 Discharge Date: 03/22/24 Disposition: ROUTINE DISCHARGE Discharge Condition: GOOD Reason for Admission: acute on chronic heart failure Brief History of Present Illness: 63-year-old woman with a past medical history significant for congestive heart failure, hypertension, TIA, and seasonal allergies presented to the emergency department complaining of cough, chest congestion, and right foot swelling x 2 weeks. The patient reports chest congestion that started 2 weeks ago and she was provided a Z-John that she finished on 03/17/2024. Also, the patient reports she noticed her right foot swelling on 03/17/2024. She states her last heart failure exacerbation was in 2019. She had an echocardiogram performed in 2021. Patient states that even after completing the Z-John, she still has trouble ambulating without becoming short of breath. She states she stopped taking Lasix twice daily on 03/17/2024. The patient was giving 1 dose of Lasix upon arrival to the emergency department tonight. - Physical Exam General: Alert, Oriented x3 HEENT: Atraumatic, Normocephalic Neck: JVD not distended Respiratory: Normal air movement Cardiovascular: No gallops, No murmurs Gastrointestinal: Normal bowel sounds, Non-distended Musculoskeletal: No tenderness (right foot), No warmth (right foot), Swelling (right foot) Neurological: No focal deficits, Hospital Course: 63-year-old woman with a past medical history significant for congestive heart failure, hypertension, TIA, and seasonal allergies presented to the emergency department complaining of cough, chest congestion, and right foot swelling x 2 weeks. She was noted to have acute on chronic heart failure, acute bronchitis, she was evaluated by cardiology, treated with Lasix, echo was completed, EF 65%, grade 2 diastolic dysfunction. Mild acute kidney injury from diuretics, was evaluated by nephrology, follow-up with nephrology after discharge tolerating diet, stable to discharge home follow-up with cardiology after discharge. Discharge medications continue Lasix 40 mg po daily add Aldactone 25 mg daily add Losartan 25 mg daily change Metoprolol to Coreg 12.5 mg po BID nebs, nebulizer, inhalers Assessment Acute on chronic heart failure-treated with diuretics, Elevated BNP Acute kidney injury, CKD, unknown baseline Microcytic anemia H&H Hypokalemia-replaced while inpatient chronic Bronchitis, treated with nebs, oxygen Continue home medicines as previously prescribed GOAL: Clear understanding of disease process INSTRUCTIONS: Physician Discharge Instructions: -follow up with cariology after DC, call for apt -Follow-up with PCP in 1 to 2 weeks -Please call Dr. Fernandez at [phone] if any questions regarding hospital stay -Please call nursing station at [phone] if any nursing or medication questions -Return to the emergency room if symptoms worsen Diet: ADA, low sodium Activity: Fall precautions Vital Signs/Physical Exam: Temp Pulse Resp BP Pulse Ox 98.4 F 65 16 146/67 H 99 03/22/24 10:14 03/22/24 10:14 03/22/24 10:14 03/22/24 10:14 03/22/24 10:14 Laboratory Data at Discharge: WBC 8.00 thou/uL (4.3-10.9) 03/20/24 04:17 Hgb 9.1 g/dL (12.0-15.0) L D 03/20/24 04:17 Hct 26.3 % (36.0-45.0) L 03/20/24 04:17 Plt Count 367 thou/uL (152-406) 03/20/24 04:17 Sodium 141 mEq/L (136-145) 03/21/24 04:13 Potassium 3.4 mEq/L (3.5-5.1) L 03/21/24 04:13 BUN 51 mg/dL (7-18) H 03/21/24 04:13 Creatinine 2.29 mg/dL (0.55-1.02) H 03/21/24 04:13 Glucose 155 mg/dL (74-106) H 03/21/24 04:13 Uric Acid 10.2 mg/dL (2.6-6.0) H 03/22/24 06:55 Phosphorus 4.8 mg/dL (2.5-4.9) 03/20/24 04:17 Magnesium 2.3 mg/dL (1.6-2.4) 03/20/24 04:17 Total Bilirubin 0.6 mg/dL (0.2-1.0) 03/19/24 16:50 AST < 10 U/L (15-37) L 03/19/24 16:50 ALT 16 U/L (13-56) 03/19/24 16:50 Alkaline Phosphatase 122 U/L (45-117) H 03/19/24 16:50 Triglycerides 78 mg/dL (<150) 03/20/24 04:17 Cholesterol 109 mg/dL (<200) 03/20/24 04:17 HDL Cholesterol 45 mg/dL (40-60) 03/20/24 04:17 Cholesterol/HDL Ratio 2.42 03/20/24 04:17 Home Medications: Aspirin 81 mg PO DAILY 04/15/21 Atorvastatin Calcium 40 mg PO DAILY 04/15/21 Brimonidine Tartrate/Timolol [Combigan 0.2%-0.5% Eye Drops] 5 ml EACH EYE BID 04/15/21 Folic Acid 800 mcg PO DAILY 07/24/21 Furosemide 40 mg PO BID #60 tablet 07/25/21 Albuterol Inhaler [Ventolin Inhaler*] 2 puff IH Q6H PRN 30 Days #1 inh 03/22/24 Albuterol Sulfate [Albuterol Sulfate 0.083% Neb Soln] 2.5 mg IH Q4H PRN 30 Days #1 box 03/22/24 Arformoterol Tartrate [Brovana] 15 mcg NEB BIDRESP vial.neb 03/22/24 Aspirin Chewable [Aspirin Chewable*] 81 mg PO DAILY tab.chew 03/22/24 Ipratropium Neb [Atrovent*] 0.5 mg IH Q4H 30 Days #1 box 03/22/24 Ipratropium Neb [Atrovent*] 0.5 mg NEB TIDRESP amp 03/22/24 Loratadine [Claritin*] 10 mg PO DAILY tab 03/22/24 Losartan Potassium [Cozaar] 25 mg PO 30 MIN BEFORE HS 30 Days #30 tab 03/22/24 Nebulizer Accessories [[employer] Neb Kit-Adult] 1 each MC DAILY 30 Days #1 ea 03/22/24 Nebulizer and Compressor [[employer] Nebulizer] 1 each MC DAILY 30 Days #1 ea 03/22/24 Spironolactone 25 mg PO DAILY 30 Days #30 tab 03/22/24 carvediloL [Coreg] 12.5 mg PO BID 30 Days #60 tab 03/22/24 New Medications: Albuterol Sulfate [Albuterol Sulfate 0.083% Neb Soln] 2.5 mg IH Q4H PRN 30 Days #1 box PRN Reason: Shortness Of Breath Ipratropium Neb [Atrovent*] 0.5 mg IH Q4H 30 Days #1 box Nebulizer Accessories [[employer] Neb Kit-Adult] 1 each MC DAILY 30 Days #1 ea Nebulizer and Compressor [[employer] Nebulizer] 1 each MC DAILY 30 Days #1 ea carvediloL [Coreg] 12.5 mg PO BID 30 Days #60 tab Losartan Potassium [Cozaar] 25 mg PO 30 MIN BEFORE HS 30 Days #30 tab Spironolactone 25 mg PO DAILY 30 Days #30 tab Albuterol Inhaler [Ventolin Inhaler*] 2 puff IH Q6H PRN 30 Days #1 inh PRN Reason: Shortness Of Breath Physician Discharge Instructions: Continue home medicines as previously prescribed GOAL: Clear understanding of disease process INSTRUCTIONS: Physician Discharge Instructions: -Follow-up with PCP in 1 to 2 weeks -Please call Dr. Fernandez at [phone] if any questions regarding hospital stay -Please call nursing station at [phone] if any nursing or medication questions -Return to the emergency room if symptoms worsen Diet: ADA, low sodium Activity: Fall precautions Followup: Roel Hernandez [ACTIVE - CAN ADMIT] - Hernan Gomez MD [ACTIVE - CAN ADMIT] - Sam Lizarraga MD [Primary Care Provider] - 1-2 Weeks Time spent managing pt's care (in minutes): 55
[2024-03-22 11:29] LABS: Anion Gap 9.1 mEq/L (5.0-15.0); Potassium 4.1 mEq/L (3.5-5.1)
== END 2024-03-22 11:15 | disposition home or self-care (01) | DRG 291 ==
LOC: ER 12:09 → ERHOLD 19:03 → 2ND 20:17
PROVIDERS: ADMIT Hospitalist; ATTEND Hospitalist
DX: I13.0 Hypertensive heart and chronic kidney disease with heart failure and stage 1 through stage 4 chronic kidney disease, or unspecified chronic kidney disease (principal); I50.33 Acute on chronic diastolic (congestive) heart failure; J96.01 Acute respiratory failure with hypoxia; N17.9 Acute kidney failure, unspecified; N18.9 Chronic kidney disease, unspecified; D63.1 Anemia in chronic kidney disease; D50.9 Iron deficiency anemia, unspecified; J20.9 Acute bronchitis, unspecified; E87.6 Hypokalemia; E78.00 Pure hypercholesterolemia, unspecified; Z88.5 Allergy status to narcotic agent; Z86.16 Personal history of COVID-19; Z11.52 Encounter for screening for COVID-19; Z79.82 Long term (current) use of aspirin; Z86.73 Personal history of transient ischemic attack (TIA), and cerebral infarction without residual deficits; Z91.011 Allergy to milk products; Z91.040 Latex allergy status; Z79.899 Other long term (current) drug therapy; Z87.891 Personal history of nicotine dependence
CPT/HCPCS: 36415; 71045; 71046; 76770; 80048; 80061; 80076; 81001; 82550; 82607; 82728; 83540; 83605; 83735; 83880; 83970; 84100; 84165; 84443; 84466; 84484; 84550; 85025; 85044; 86021; 87070; 87081; 87804; 87811; 93005; 93306; 93971; 94640; 94760; 96374; 96375; 99285; J1940; J2919; J7050; J7605; J7613; J7644

== ENCOUNTER 2024-07-24 12:47 | Inpatient (IN) | payer OTHER ==
--- NOTE | 2024-07-24 14:41 | RAD REPORT ---
EXAM: Chest Single View HISTORY: 64 years Female COUGH COMPARISON: 03/21/2024 FINDINGS: LUNGS/PLEURA: The lungs are clear. No pleural effusions or pneumothorax. No pulmonary edema. CARDIAC/MEDIASTINUM: The cardiac silhouette is within normal limits. UPPER ABDOMEN: No significant abnormality. BONES: No acute abnormality. LINES/TUBES/OTHER: N/A IMPRESSION: No evidence of acute cardiopulmonary disease.
[2024-07-24 16:09] LABS: Specific Gravity 1.007 (1.005-1.030); Sqamous Epithelial <5 /HPF (None Seen); Urine Bacteria <20 /HPF (<20); Urine Bilirubin NEGATIVE (Negative); Urine Blood Negative (Negative); Urine Clarity Turbid (Clear); Urine Color Colorless (Yellow); Urine Crystals Unidentified Few /HPF (None Seen); Urine Culture Reflex Order NOT NEEDED; Urine Glucose NEGATIVE (Negative); Urine Ketones NEGATIVE (Negative); Urine Microscopic Reflex YN ORDER UMIC; Urine Mucus Slight /HPF (None Seen); Urine Nitrite NEGATIVE (Negative); Urine Protein TRACE (Negative); Urine RBC <5 /HPF (None Seen); Urine Urobilinogen Normal (Normal); Urine WBC <5 /HPF (<5); Urine Yeast (Budding) Trace /HPF (None Seen)
[2024-07-24 16:26] LABS: Absolute Basophils 0.1 K/uL (0-0.5); Absolute Eosinophils 0.1 K/uL (0-0.5); Absolute Lymphocytes (CBC) 1.3 K/uL (0.7-4.9); Absolute Monocytes 0.6 K/uL (0.1-1.3); Absolute Neutrophil 4.4 K/uL (1.8-8.0); Basophils % 0.8 % (0-1.3); Eosinophils % 1.2 % (0-4.4); Hematocrit 24.9 % (36.0-45.0); Hemoglobin 8.8 g/dL (12.0-15.0); Lymphocytes % 20.8 % (15.3-44.8); MCH 31.4 pg (27.0-35.0); MCHC 35.2 g/dL (32.0-36.0); MCV 89.3 fL (80-100); MPV 8.5 fL (7.6-11.3); Monocytes % 9.2 % (3.3-12.3); Platelets 281 thou/uL (152-406); RBC Red Blood Cell Count 2.79 M/uL (3.86-4.86); Red Cell Distribution Width 13.5 % (12.1-15.2)
[2024-07-24 16:37] LABS: ALT/SGPT 18 U/L (13-56); AST/SGOT < 10 U/L (15-37); Albumin 3.3 g/dL (3.4-5.0); Albumin/Globulin Ratio 0.7 (1.1-1.8); Alkaline Phosphatase 149 U/L (45-117); Anion Gap 14.2 mEq/L (5.0-15.0); BUN Blood Urea Nitrogen 116 mg/dL (7-18); Bicarbonate 18 mEq/L (21-32); Bilirubin Total 0.4 mg/dL (0.2-1.0); Globulin 4.5 g/dL (2.3-3.5); Glomerular Filtration Rate 18 ml/min (=/>90); Glucose Level 116 mg/dL (74-106); Lipase 49 U/L (13-75); Potassium 5.2 mEq/L (3.5-5.1); Protein, Total 7.8 g/dL (6.4-8.2); Sodium Level 128 mEq/L (136-145)
[2024-07-24 16:38] LABS: Influenza A Ag Negative; Influenza B Ag Negative; SARS-CoV-2 Antigen Rapid Res Negative (Negative)
[2024-07-24] MEDS ORDERED: NA CHLORIDE 0.9% 1,000 ML ONE ×2 (16:54→20:54)
--- NOTE | 2024-07-24 17:13 | RAD REPORT ---
EXAMINATION: CT ABDOMEN AND PELVIS WITHOUT CONTRAST CLINICAL INDICATION: Abdominal pain TECHNIQUE: CT abdomen and pelvis was performed, as per department protocol. IV contrast and oral was not administered.Axial, sagittal and coronal reconstructions were obtained. One or more of the following dose reduction techniques were used: Automated exposure control, adjustment of the mA and/o r kV according to the patient size, and/or iterative reconstruction. Unless otherwise specified, incidental findings do not require dedicated imaging follow-up. [id number]. COMPARISON: 2022 FINDINGS: The lack of intravenous and oral contrast limits evaluation of solid organs, vessels and bowel. The liver, spleen, pancreas, and kidneys appear grossly normal. Small adrenal nodule is unchanged lik danna adenomas No evidence of diverticulitis Normal appendix. Hysterectomy. No adnexal mass. Small gallstones. Gallbladder wall does not appear thickened Moderate amount stool within the colon IMPRESSION: Cholelithiasis without evidence of cholecystitis Moderate amount stool within the colon
--- NOTE | 2024-07-24 17:26 | EDPHYS ---
Physician Documentation [facility] Name: Mariluz Smith Age: 64 yrs Sex: Female : 1960 Arrival Date: 07/24/2024 Time: 12:47 Bed 13 Private MD: ED Physician Arash Araujo HPI: 07/24 13:14 This 64 yrs old Female presents to ER via Unassigned with complaints of kb Weakness, Doesn't Feel Right. 13:14 Pt is a 64 year old female who presents for suprapubic pain, dysuria, urinating small kb amounts that started one month ago and hasn't gotten better. States she has taken antibiotics without relief. Believes she may have passed a kidney stone a couple of weeks ago. Reports shakiness, cough that started this morning. Reports chills started at the ER. . Historical: - Allergies: 13:29 Codeine; ld1 13:29 Milk; ld1 - PMHx: 13:29 Glaucoma; Broken Neck; Hypercholesterolemia; Hypertensive disorder; TIA; ld1 - Immunization history:: Adult Immunizations up to date. - Infectious Disease History:: Denies. - Social history:: Smoking status: Patient denies any tobacco usage or history of. ROS: 13:16 Constitutional: As per HPI kb Exam: 14:25 Constitutional: This is a well developed, well nourished patient who is awake, alert, kb and in no acute distress. Head/Face: Normocephalic, atraumatic. ENT: Moist Mucous membranes Cardiovascular: Regular rate Respiratory: Respirations even and unlabored. No increased work of breathing. Talking in full sentences Skin: Warm, dry with normal turgor. Normal color. MS/ Extremity: Pulses equal, no cyanosis. Neurovascular intact. Full, normal range of motion. Neuro: Awake and alert, GCS 15, oriented to person, place, time, and situation. 14:25 Abdomen/GI: Inspection: abdomen appears normal, Bowel sounds: normal, Palpation: soft, in all quadrants, mild abdominal tenderness, in the suprapubic area, Vital Signs: 13:27 BP 138 / 71; Pulse 73; Resp 18; Temp 97.3(TE); Pulse Ox 100% on R/A; Weight 81.65 kg; ld1 Height 5 ft. 2 in. ; Pain 0/10; 18:30 BP 120 / 66; Pulse 71; Resp 15; Pulse Ox 100% ; jl7 19:15 BP 120 / 66; Pulse 73; Resp 18; Pulse Ox 100% on R/A; Pain 0/10; rg5 13:27 Body Mass Index 32.92 (81.65 kg, 157.48 cm) ld1 13:27 Pain Scale: Adult ld1 19:15 Pain Scale: Adult rg5 MDM: 13:05 Medical Screening Exam initiated kb 17:24 Differential diagnosis: urinary tract infection, dehydration, abnormal electrolytes. kb Data reviewed: vital signs, nurses notes. Consideration of Admission/Observation Patient was admitted/placed on observation. Escalation of care including admission/observation considered. Management of patient was discussed with the following: Hospitalist: Hospitalist team. Historians other than the Patient: Friend: friend. Counseling: I had a detailed discussion with the patient and/or guardian regarding the historical points, exam findings, and any diagnostic results supporting the discharge/admit diagnosis, lab results, radiology results, the need for further work-up and treatment in the hospital. 07/24 13:23 Order name: CBC with Diff; Complete Time: 16:33 kb 07/24 13:23 Order name: CMP; Complete Time: 16:38 kb 07/24 13:23 Order name: Lipase; Complete Time: 16:38 kb 07/24 13:23 Order name: Urinalysis w/ reflexes; Complete Time: 16:15 kb 07/24 13:23 Order name: COVID-19 Ag + Flu A+B Ag; Complete Time: 16:38 kb 07/24 19:49 Order name: NT PRO-BNP EDMS 07/24 19:49 Order name: Basic Metabolic Panel EDMS 07/24 19:49 Order name: Basic Metabolic Panel EDMS 07/24 19:49 Order name: Basic Metabolic Panel EDMS 07/24 19:49 Order name: Basic Metabolic Panel EDMS 07/24 19:49 Order name: CBC with Automated Diff EDMS 07/24 19:49 Order name: CBC with Automated Diff EDMS 07/24 19:49 Order name: CBC with Automated Diff EDMS 07/24 21:46 Order name: Glucose, Ancillary Testing; Complete Time: 21:48 EDMS 07/24 22:18 Order name: ABG Arterial Blood Gas; Complete Time: 22:24 EDMS 07/25 07:26 Order name: NT PRO-BNP EDOR 07/25 08:14 Order name: Glucose, Ancillary Testing EDOR 07/25 10:06 Order name: CBC Smear Scan EDOR 07/24 13:23 Order name: Chest Single View XRAY; Complete Time: 14:41 kb 07/24 16:38 Order name: CT Abd/Pelvis - Without Contrast; Complete Time: 17:18 kb 07/24 13:23 Order name: IV Saline Lock; Complete Time: 16:35 kb 07/24 13:23 Order name: Labs collected and sent; Complete Time: 16:35 kb Administered Medications: 17:11 Drug: NS 0.9% IV 1000 ml IV at 1000 ml once; to be given as a bolus over 60 minutes jl7 Route: IV; Rate: 1000 ml; Site: right antecubital; 18:30 Follow up: IV Status: Completed infusion; IV Intake: 1000ml jl7 18:39 Not Given (Patient Refused): [id number] mg PO once jl7 18:39 Drug: Acetaminophen PO 500 mg PO once Route: PO; jl7 Disposition Summary: 07/24/24 17:25 Hospitalization Ordered Notes: Hospitalization Status: Observation kb Condition: Stable kb Problem: new kb Symptoms: are unchanged kb Bed/Room Type: Standard kb Provider: Oliver Meek(07/24/24 17:46) kb Location: Telemetry/MedSurg (observation)(07/25/24 10:00) Room Assignment: [facility](07/25/24 10:00) Diagnosis - Dehydration kb - hyponatremia kb - Acute kidney failure, unspecified kb Forms: - Medication Reconciliation Form kb - SBAR form kb - Leadership Thank You Letter kb Addendum: 07/27/2024 21:24 Co-signature as Attending Physician, Arash Araujo MD I reviewed the patient's care r n provided by the Advanced Practice Provider and agree with the diagnosis and treatment plan. Signatures: Dispatcher [employer] [facility] Ani Grey, BALL MILL MIXER-C BALL MILL MIXER-Ckb Arash Araujo MD MD rn Blanchard, Shelby, RN RN ss Marybel Hernandez RN RN Jose Briggs RN RN jl7 Michelle Oscar RN RN ld1 Corrections: (The following items were deleted from the chart) 07/24 13:23 13:23 CBC+H.LAB.BRZ ordered. EDMS EDMS 13:23 13:23 COMPREHENSIVE METABOLIC PANEL+C.LAB.BRZ ordered. EDMS EDMS 13:23 13:23 LIPASE+C.LAB.BRZ ordered. EDMS EDMS 13:23 13:23 Urinalysis+U.LAB.BRZ ordered. EDMS EDMS 13:23 13:23 COVID-19 Ag + Flu A+B Ag+I.LAB.BRZ ordered. EDMS EDMS 13:23 13:23 Chest Single View+RAD.RAD.BRZ ordered. EDMS EDMS 16:38 16:38 Abdomen Pelvis Wo Con+CT.RAD.BRZ ordered. EDMS EDMS 16:42 16:34 Abdomen Pelvis W Con+CT.RAD.BRZ ordered. EDMS EDMS 17:46 17:25 Reji Goetz kb kb 22:42 17:25 Telemetry/MedSurg (observation) kb 22:42 17:25 kb 07/25 10:00 07/24 22:42 [facility] ER HOLD [facility] 07/25 10:07/24 22:42 ERHOLD- [facility]
--- NOTE | 2024-07-24 17:26 | ER ---
Nurse's Notes [facility] Name: Mariluz Smith Age: 64 yrs Sex: Female : 1960 Arrival Date: 07/24/2024 Time: 12:47 Bed 13 Private MD: Diagnosis: Dehydration;hyponatremia;Acute kidney failure, unspecified Presentation: 07/24 13:27 Chief complaint: Reoccurring UTI X 1 month. C/O frequent need to urinating. Coronavirus ld1 screen: At this time, the client does not indicate any symptoms associated with coronavirus-19. Ebola Screen: No symptoms or risks identified at this time. Initial Sepsis Screen: Does the patient meet any 2 criteria? No. Patient's initial sepsis screen is negative. Does the patient have a suspected source of infection? No. Patient's initial sepsis screen is negative. Risk Assessment: Do you want to hurt yourself or someone else? Patient reports no desire to harm self or others. Onset of symptoms was July 24, 2024. 13:27 Method Of Arrival: Wheelchair ld1 13:27 Acuity: RACHANA 3 ld1 Triage Assessment: 13:29 General: Appears in no apparent distress. comfortable, Behavior is calm, cooperative, ld1 appropriate for age. Pain: Denies pain. EENT: No signs and/or symptoms were reported regarding the EENT system. Neuro: Level of Consciousness is awake, alert, obeys commands, Oriented to person, place, time, situation. Cardiovascular: Cardiovascular: Capillary refill < 3 seconds Patient's skin is warm and dry. Respiratory: Airway is patent Respiratory effort is even, unlabored. GI: Abdomen is flat, non-distended. : No signs and/or symptoms were reported regarding the genitourinary system. Derm: No signs and/or symptoms reported regarding the dermatologic system. Musculoskeletal: No signs and/or symptoms reported regarding the musculoskeletal system. Historical: - Allergies: 13:29 Codeine; ld1 13:29 Milk; ld1 - PMHx: 13:29 Glaucoma; Broken Neck; Hypercholesterolemia; Hypertensive disorder; TIA; ld1 - Immunization history:: Adult Immunizations up to date. - Infectious Disease History:: Denies. - Social history:: Smoking status: Patient denies any tobacco usage or history of. Screenin:30 [facility] ED Fall Risk Assessment (Adult) History of falling in the last 3 months, jl7 including since admission No falls in past 3 months (0 pts) Confusion or Disorientation No (0 pts) Intoxicated or Sedated No (0 pts) Impaired Gait No (0 pts) Mobility Assist Device Used No (0 pt) Altered Elimination No (0 pt) Score/Fall Risk Level 0 - 2 = Low Risk Oriented to surroundings, Maintained a safe environment. Abuse screen: Denies threats or abuse. Denies injuries from another. Nutritional screening: No deficits noted. Tuberculosis screening: No symptoms or risk factors identified. Assessment: 18:00 General: Appears in no apparent distress. uncomfortable, Behavior is calm, cooperative, jl7 appropriate for age. Pain: Complains of pain in suprapubic area. Neuro: Level of Consciousness is awake, alert, obeys commands, Oriented to person, place, time, situation. Cardiovascular: Patient's skin is warm and dry. Respiratory: Airway is patent Respiratory effort is even, unlabored, Respiratory pattern is regular, symmetrical. : Reports pain in suprapubic area with urination. Derm: Skin is pink, warm \T\ dry. 18:30 Reassessment: Pt ambulated with standby assist to restroom, denies discomfort at this jl7 time. 19:10 General: Appears in no apparent distress. comfortable, Behavior is calm, cooperative, rg5 appropriate for age. 19:10 Pain: Complains of pain in suprapubic area. Neuro: Level of Consciousness is awake, rg5 alert, obeys commands, Oriented to person, place, time. Cardiovascular: Denies chest pain, Patient's skin is warm and dry. Respiratory: Airway is patent Respiratory effort is even, unlabored, Respiratory pattern is regular, symmetrical. : Reports burning with urination, pain in suprapubic area with urination. Vital Signs: 13:27 BP 138 / 71; Pulse 73; Resp 18; Temp 97.3(TE); Pulse Ox 100% on R/A; Weight 81.65 kg; ld1 Height 5 ft. 2 in. ; Pain 0/10; 18:30 BP 120 / 66; Pulse 71; Resp 15; Pulse Ox 100% ; jl7 19:15 BP 120 / 66; Pulse 73; Resp 18; Pulse Ox 100% on R/A; Pain 0/10; rg5 13:27 Body Mass Index 32.92 (81.65 kg, 157.48 cm) ld1 13:27 Pain Scale: Adult ld1 19:15 Pain Scale: Adult rg5 ED Course: 12:50 Patient arrived in ED. mr 13:05 Ani Grey, [facility]. kb 13:05 Arash Araujo MD is Attending Physician. kb 13:29 Triage completed. ld1 13:29 Arm band placed on right wrist. ld1 13:58 Chest Single View XRAY In Process Unspecified. EDMS 14:49 called patient from [facility] no answer. bc6 16:12 Initial lab(s) drawn, by me, sent to lab. Urine collected: clean catch specimen, clear. tm3 Inserted saline lock: 22 gauge in right antecubital area, using aseptic technique. 17:02 CT Abd/Pelvis - Without Contrast In Process Unspecified. EDMS 17:11 Jose Westfall, STEPHIE is Primary Nurse. jl7 17:25 Reji Goetz MD is Hospitalizing Provider. kb 17:46 Oliver Meek is Hospitalizing Provider. kb 18:30 Patient has correct armband on for positive identification. Bed in low position. Call jl7 light in reach. Side rails up X 1. Provided Education on: use of call cash. 19:14 No provider procedures requiring assistance completed. Patient admitted, IV remains in jl7 place. intact, No redness/swelling at site. Administered Medications: 17:11 Drug: NS 0.9% IV 1000 ml IV at 1000 ml once; to be given as a bolus over 60 minutes jl7 Route: IV; Rate: 1000 ml; Site: right antecubital; 18:30 Follow up: IV Status: Completed infusion; IV Intake: 1000ml jl7 18:39 Not Given (Patient Refused): [id number] mg PO once jl7 18:39 Drug: Acetaminophen PO 500 mg PO once Route: PO; jl7 Medication: 18:30 VIS not applicable for this client. jl7 Intake: 18:30 IV: 1000ml; Total: 1000ml. jl7 Outcome: 17:25 Decision to Hospitalize by Provider. kb 19:30 Admitted to ER Hold. Please see [facility] for further documentation. rg5 19:30 Condition: stable 19:30 Instructed on the need for admit, rg5 07/25 10:52 Patient left the ED. ll1 Signatures: Dispatcher [employer] EDMS Ani Grey, TOWER SWITCH OPERATOR-C TOWER SWITCH OPERATOR-Ckb Huber, Gui 3 [facility] mr WestfallJose, RN RN jl7 Angela Siegel, RN RN ll1 Michelle Oscar RN RN ld1 Chaparrita Mosqueda 6 Carlos Manrique RN RN rg5
[2024-07-24] MEDS ORDERED: ACETAMINOPHEN 500 MG TAB ONE (18:32)
[2024-07-24] MEDS ORDERED: ACETAMINOPHEN 325 MG TABLET PO PRN (19:41)
[2024-07-24] MEDS ORDERED: ALPRAZOLAM 0.25 MG TABLET PO PRN (19:41)
[2024-07-24] MEDS ORDERED: ONDANSETRON 4 MG/2 ML VIAL IV PRN (19:41)
[2024-07-24] MEDS ORDERED: ALBUTEROL INHALER 200 PUFF/6.7 GM IH PRN (19:51)
--- NOTE | 2024-07-24 19:51 | P.HP ---
Certification for Inpatient With expected LOS: <2 Midnights Patient will require the following post-hospital care: None Practitioner: I am a practitioner with admitting privileges, knowledge of patient current condition, hospital course, and medical plan of care. Services: Services provided to patient in accordance with Admission requirements found in Title 42 Section 412.3 of the Code of Federal Regulations Patient History Date of Service: 07/24/24 History of Present Illness: This is a 64-year-old female with a past medical history of CHF, hypertension, presenting with dysuria and dehydration for the last several days. She states she had a hysterectomy about a year ago due to cancer. She completed 5 rounds of radiation. She was seen by her PCP Dr. Lizarraga who gave her antibiotics. She states she has been through 2 or 3 antibiotics. The only thing that relieves her pain is warm water to the area. He has never seen a urologist. 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 She states she has not been eating or drinking. She has been taking her diuretics which include furosemide and spironolactone. She rates the discomfort at a 7 out of 10. Allergies codeine Allergy (Verified 05/22/19 03:39) Anaphylaxis Latex, Natural Rubber Allergy (Verified 05/22/19 03:39) see comment milk Allergy (Verified 05/22/19 03:39) see comment Milk Containing Products (Dairy) [Milk Containing Products] Allergy (Verified 05/22/19 03:39) see comment Home Medications: Aspirin 81 mg PO DAILY 04/15/21 Atorvastatin Calcium 40 mg PO DAILY 04/15/21 Brimonidine Tartrate/Timolol [Combigan 0.2%-0.5% Eye Drops] 5 ml EACH EYE BID 04/15/21 Folic Acid 800 mcg PO DAILY 07/24/21 Furosemide 40 mg PO BID #60 tablet 07/25/21 Albuterol Inhaler [Ventolin Inhaler*] 2 puff IH Q6H PRN 30 Days #1 inh 03/22/24 Albuterol Sulfate [Albuterol Sulfate 0.083% Neb Soln] 2.5 mg IH Q4H PRN 30 Days #1 box 03/22/24 Arformoterol Tartrate [Brovana] 15 mcg NEB BIDRESP vial.neb 03/22/24 Aspirin Chewable [Aspirin Chewable*] 81 mg PO DAILY tab.chew 03/22/24 Ipratropium Neb [Atrovent*] 0.5 mg IH Q4H 30 Days #1 box 03/22/24 Ipratropium Neb [Atrovent*] 0.5 mg NEB TIDRESP amp 03/22/24 Loratadine [Claritin*] 10 mg PO DAILY tab 03/22/24 Losartan Potassium [Cozaar] 25 mg PO 30 MIN BEFORE HS 30 Days #30 tab 03/22/24 Nebulizer Accessories [[place] Choice Neb Kit-Adult] 1 each MC DAILY 30 Days #1 ea 03/22/24 Nebulizer and Compressor [[place] [facility] Nebulizer] 1 each MC DAILY 30 Days #1 ea 03/22/24 Spironolactone 25 mg PO DAILY 30 Days #30 tab 03/22/24 carvediloL [Coreg] 12.5 mg PO BID 30 Days #60 tab 03/22/24 - Past Medical/Surgical History Diabetic: Yes -: cataracts -: macular degeneration -: neck fx -: Hypertension -: Chronic diastolic congestive heart failure -: TIA -: cataract surgery bilateral eyes -: neck sx -: finger sx Psychosocial/ Personal History: Patient lives at home, cares for her 2 grandchildren - Family History Mother -: Stroke Father -: Heart disease, Hypertension - Social History Alcohol use: No CD- Drugs: No Caffeine use: Yes Review of Systems General: Weakness Eyes: Unremarkable ENT: Unremarkable Respiratory: Unremarkable Cardiovascular: Unremarkable Gastrointestinal: Unremarkable Genitourinary: Dysuria, Frequency Musculoskeletal: Unremarkable Integumentary: Unremarkable Neurological: Unremarkable Physical Examination - Physical Exam General: Alert, In no apparent distress HEENT: Atraumatic, Normocephalic Neck: Supple Respiratory: Clear to auscultation bilaterally, Normal air movement Cardiovascular: No edema, Normal pulses Capillary refill: <2 Seconds Gastrointestinal: Normal bowel sounds Musculoskeletal: No clubbing, No swelling Integumentary: No rashes Neurological: Normal gait, Normal speech - Studies Laboratory Data (last 24 hrs) 07/24/24 07/24/24 16:05 16:05 WBC 6.50 Hgb 8.8 L Hct 24.9 L Plt Count 281 Sodium 128 L Potassium 5.2 H BUN 116 H Creatinine 2.75 H Glucose 116 H Total Bilirubin 0.4 AST < 10 L ALT 18 Alkaline Phosphatase 149 H Lipase 49 Assessment and Plan - Plan Acute kidney injury Dysuria Uremic Acidosis Generalized weakness Hyponatremia Hyperkalemia Constipation Heart failure with preserved ejection fraction Adrenal adenoma Glaucoma Hypercholesterolemia Admit to MedSur Low GFR with low urine output, elevated BUN, with low bicarb Strict I's and O's Will hold off on urography with contrast for now due to LAUREN Hold diuretic. Received normal saline in the ED Will continue low rate normal saline UA without pyuria Monitor sodium levels Spironolactone held due to hyperkalemia Insulin and D50 once for hyperkalemia Senna-S nightly Continue statin Continue Coreg Zofran as needed DVT prophylaxis with heparin - Advance Directives Does patient have a Living Will: No Does patient have a Durable POA for Healthcare: No
[2024-07-24] MEDS: NA CHLORIDE 0.9% 1,000 ML IV SCH (20:00)
[2024-07-24] MEDS ORDERED: DOCUSATE NA/SENNA CONC 1 TAB PO PRN (20:01)
[2024-07-24] MEDS: D50W 25 GM/50 ML SYRINGE IV ONE (20:56)
[2024-07-24] MEDS: TIMOLOL OPTH SCH (21:00)
[2024-07-24] MEDS: INSULIN REGULAR (HUMAN) 100 UNIT/ML IV ONE (21:00)
[2024-07-24] MEDS: carvediloL 12.5 MG TAB PO SCH (21:00)
[2024-07-24] MEDS: BRIMONIDINE TARTRATE OPTH SCH (21:00)
[2024-07-24] MEDS ORDERED: D10W 125 ML IV PRN (21:04)
[2024-07-24 22:11] LABS: Blood O2 Saturation 95.9 % (92-98.5)
[2024-07-24 22:12] LABS: Blood Gas Oxyhemoglobin 93.1 % (94-97)
[2024-07-24 22:13] LABS: Blood Gas THB 8.9 g/dl (12-18)
[2024-07-25] MEDS ORDERED: HEPARIN 5000 UNIT/ML 1 ML VIAL ONE ×2 (03:35→09:58)
[2024-07-25] MEDS: HEPARIN 5000 UNIT/ML 1 ML VIAL SQ SCH (03:36)
[2024-07-25 06:36] LABS: Absolute Basophils 0.1 K/uL (0-0.5); Absolute Eosinophils 0.1 K/uL (0-0.5); Absolute Lymphocytes (CBC) 2.2 K/uL (0.7-4.9); Absolute Monocytes 1.2 K/uL (0.1-1.3); Absolute Neutrophil 5.4 K/uL (1.8-8.0); Basophils % 0.9 % (0-1.3); Eosinophils % 1.5 % (0-4.4); Hematocrit 23.7 % (36.0-45.0); Hemoglobin 8.4 g/dL (12.0-15.0); Lymphocytes % 24.1 % (15.3-44.8); MCH 31.5 pg (27.0-35.0); MCHC 35.5 g/dL (32.0-36.0); MCV 88.6 fL (80-100); MPV 9.2 fL (7.6-11.3); Monocytes % 13.4 % (3.3-12.3); Neutrophils % 60.1 % (41.7-73.7); Nucleated Red Blood Cells % 0.1 % (0-0); Platelets 211 thou/uL (152-406); RBC Red Blood Cell Count 2.68 M/uL (3.86-4.86); Red Cell Distribution Width 13.4 % (12.1-15.2)
[2024-07-25 07:25] LABS: Anion Gap 15.3 mEq/L (5.0-15.0); Potassium 5.3 mEq/L (3.5-5.1)
[2024-07-25] MEDS ORDERED: IPRATROPIUM BROM 0.5MG/2.5ML ONE (08:19)
[2024-07-25] MEDS: IPRATROPIUM BROM 0.5MG/2.5ML IH SCH (08:30)
[2024-07-25] MEDS: ATORVASTATIN 40 MG TAB PO SCH (09:00)
[2024-07-25] MEDS: ASPIRIN 81 MG CHEWABLE TABLET PO SCH (09:00)
[2024-07-25] MEDS: D5W 1,000 ML with NA BICARB 8.4% 100 MEQ IV SCH (09:30)
--- NOTE | 2024-07-25 09:33 | P.CNS ---
Date of Consult: 07/25/24 Reason for Consult: LAUREN/ CKD Requesting Physician: Reji Goetz Chief Complaint: Dysuria History of Present Illness: This is a 64-year-old female with a past medical history of CHF, hypertension, presenting with dysuria and dehydration for the last several days. She states she had a hysterectomy about a year ago due to cancer. She completed 5 rounds of radiation. She was seen by her PCP Dr. Lizarraga who gave her antibiotics. She states she has been through 2 or 3 antibiotics. The only thing that relieves her pain is warm water to the area. He has never seen a urologist. 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 She states she has not been eating or drinking. She has been taking her diuretics which include furosemide and spironolactone. She rates the discomfort at a 7 out of 10. 13:14 This 64 yrs old Female presents to ER via Unassigned with complaints of kb Weakness, Doesn't Feel Right. 13:14 Pt is a 64 year old female who presents for suprapubic pain, dysuria, urinating small kb amounts that started one month ago and hasn't gotten better. States she has taken antibiotics without relief. Believes she may have passed a kidney stone a couple of weeks ago. Reports shakiness, cough that started this morning. Reports chills started at the ER. She reports a history of waxing and waning CKD. She denies NSAIDs. She reports difficulty with her bladder. She feels that she is dehydrated. Allergies codeine Allergy (Verified 05/22/19 03:39) Anaphylaxis Latex, Natural Rubber Allergy (Verified 05/22/19 03:39) see comment milk Allergy (Verified 05/22/19 03:39) see comment Milk Containing Products (Dairy) [Milk Containing Products] Allergy (Verified 05/22/19 03:39) see comment Home medications list reviewed: Yes Home Medications: Aspirin 81 mg PO DAILY 04/15/21 Atorvastatin Calcium 40 mg PO DAILY 04/15/21 Brimonidine Tartrate/Timolol [Combigan 0.2%-0.5% Eye Drops] 5 ml EACH EYE BID 04/15/21 Folic Acid 800 mcg PO DAILY 07/24/21 Furosemide 40 mg PO BID #60 tablet 07/25/21 Albuterol Inhaler [Ventolin Inhaler*] 2 puff IH Q6H PRN 30 Days #1 inh 03/22/24 Albuterol Sulfate [Albuterol Sulfate 0.083% Neb Soln] 2.5 mg IH Q4H PRN 30 Days #1 box 03/22/24 Arformoterol Tartrate [Brovana] 15 mcg NEB BIDRESP vial.neb 03/22/24 Aspirin Chewable [Aspirin Chewable*] 81 mg PO DAILY tab.chew 03/22/24 Ipratropium Neb [Atrovent*] 0.5 mg IH Q4H 30 Days #1 box 03/22/24 Ipratropium Neb [Atrovent*] 0.5 mg NEB TIDRESP amp 03/22/24 Loratadine [Claritin*] 10 mg PO DAILY tab 03/22/24 Losartan Potassium [Cozaar] 25 mg PO 30 MIN BEFORE HS 30 Days #30 tab 03/22/24 Nebulizer Accessories [[place] Neb Kit-Adult] 1 each MC DAILY 30 Days #1 ea 03/22/24 Nebulizer and Compressor [[place] Choice Nebulizer] 1 each MC DAILY 30 Days #1 ea 03/22/24 Spironolactone 25 mg PO DAILY 30 Days #30 tab 03/22/24 carvediloL [Coreg] 12.5 mg PO BID 30 Days #60 tab 03/22/24 - Past Medical/Surgical History Diabetic: Yes -: cataracts -: macular degeneration -: neck fx -: Hypertension -: Chronic diastolic congestive heart failure -: TIA -: cataract surgery bilateral eyes -: neck sx -: finger sx Psychosocial/ Personal History: Patient lives at home, cares for her 2 grandchildren - Family History Mother Medical History: Stroke Father Medical History: Heart disease, Hypertension - Social History Smoking Status: Former smoker Alcohol use: No CD- Drugs: No Caffeine use: Yes Review of Systems 10-point ROS is otherwise unremarkable General: Weakness, Malaise Physical Examination Temp Pulse Resp BP Pulse Ox 97.8 F 75 16 136/80 99 07/25/24 08:00 07/25/24 08:00 07/25/24 08:00 07/25/24 08:00 07/25/24 08:00 General: In no apparent distress, Oriented x3, Cooperative HEENT: Atraumatic Neck: Supple Respiratory: Clear to auscultation bilaterally Cardiovascular: No edema, Regular rate/rhythm Gastrointestinal: Soft and benign, Non-distended Musculoskeletal: No clubbing, No contractures Integumentary: No rashes, No cyanosis Neurological: Normal speech Laboratory Data (last 24 hrs) 07/24/24 07/24/24 16:05 16:05 WBC 6.50 Hgb 8.8 L Hct 24.9 L Plt Count 281 Sodium 128 L Potassium 5.2 H BUN 116 H Creatinine 2.75 H Glucose 116 H Total Bilirubin 0.4 AST < 10 L ALT 18 Alkaline Phosphatase 149 H Lipase 49 Imagings Data: EXAMINATION: CT ABDOMEN AND PELVIS WITHOUT CONTRAST CLINICAL INDICATION: Abdominal pain TECHNIQUE: CT abdomen and pelvis was performed, as per department protocol. IV contrast and oral was not administered.Axial, sagittal and coronal reconstructions were obtained. One or more of the following dose reduction techniques were used: Automated exposure control, adjustment of the mA and/or kV according to the patient size, and/or iterative reconstruction. Unless otherwise specified, incidental findings do not require dedicated imaging follow-up. [id number]. COMPARISON: 2022 FINDINGS: The lack of intravenous and oral contrast limits evaluation of solid organs, vessels and bowel. The liver, spleen, pancreas, and kidneys appear grossly normal. Small adrenal nodule is unchanged likely adenomas No evidence of diverticulitis Normal appendix. Hysterectomy. No adnexal mass. Small gallstones. Gallbladder wall does not appear thickened Moderate amount stool within the colon IMPRESSION: Cholelithiasis without evidence of cholecystitis Moderate amount stool within the colon EXAM: Chest Single View HISTORY: 64 years Female COUGH COMPARISON: 03/21/2024 FINDINGS: LUNGS/PLEURA: The lungs are clear. No pleural effusions or pneumothorax. No pulmonary edema. CARDIAC/MEDIASTINUM: The cardiac silhouette is within normal limits. UPPER ABDOMEN: No significant abnormality. BONES: No acute abnormality. LINES/TUBES/OTHER: N/A IMPRESSION: No evidence of acute cardiopulmonary disease. Conclusions/Impression: Stage I LAUREN likely due to hypovolemia CKD III -No NSAIDs -Continue IVF Hyponatremia Hyperkalemia -Continue IVF -Lokelma prn Acute Metabolic Acidosis -Continue IVF with bicarb HTN with CKD/ CHF -Continue Coreg Diastolic CHF, chronic -Daily weight -Hold diuretics at this time Anemia in chronic illness -Retacrit prn Case reviewed with hospitalist team Thank you kindly for the consultation
[2024-07-25] MEDS ORDERED: ASPIRIN 81 MG CHEWABLE TABLET ONE (09:58)
[2024-07-25] MEDS ORDERED: ATORVASTATIN 40 MG TAB ONE (09:58)
[2024-07-25] MEDS ORDERED: ATORVASTATIN 20 MG TAB ONE (09:58)
[2024-07-25] MEDS: DOCUSATE NA 100 MG CAP PO SCH (10:00)
[2024-07-25 10:06] LABS: Blood Morphology Comment NOT SEEN (NOT SEEN); Platelet Estimate ADEQ; White Blood Cell Scan OK (OK)
[2024-07-25] MEDS: FLU (Fluarix Triv) TS24-25(6MOS UP)/PF 45 MCG/0.5 ML Syringe IM ONE (11:24)
[2024-07-25] MEDS: D5W 1,000 ML with NA BICARB 8.4% 150 MEQ IV SCH (14:22)
--- NOTE | 2024-07-25 15:35 | P.PN ---
Date of Service: 07/25/24 Patient seen and examined. She states she feels better . She reports suprapubic pain No abdominal tenderness on examination. Lungs clear to auscultation Heart sounds regular rhythm, normal rate. Diagnosis LAUREN Uremia Metabolic acidosis Hyponatremia Hyperkalemia Chronic diastolic heart failure Plan: Nephrology input appreciated. Hydrate with IV bicarb drip Monitor BMP closely Anticipating metabolic acidosis correction to help improve hyperkalemia. Monitor for volume overload. Monitor renal function
--- NOTE | 2024-07-25 16:00 | CON ---
Date of Consultation: 07/25/2024 Reason For Consultation: Elevated BUN, creatinine. History Of Present Illness: This is a 64-year-old female with significant past medical history of CO VID, congestive heart failure, hyperlipidemia, TIA, chronic kidney disease with baseline creatinine 1 .8 as of February 2024 and GFR of 29. The patient came to the hospital complaining of some fatigue na si, nausea, poor intake. The patient been on diuresis as outpatient. The patient was treated for up per respiratory tract infection and UTI. The patient has been on Lasix and spironolactone. Upon arr ival to the hospital, the patient found to have creatinine of 2.7. For that reason, we have been con sulted with hyponatremia 128 and hyperkalemia. The patient denied taking any nonsteroidal. Past Medical History: Includes: Hypertension. Hyperlipidemia. Congestive heart failure, diastolic dysfunction. TIA. Chronic kidney disease stage IIIB secondary to hypertension nephrosclerosis. Past Surgical History: Includes cataract, neck surgery, finger surgery. Home Medications: Include aspirin, atorvastatin, pamidronate, Lasix, spironolactone, ipratropium jacqueline athing treatment, losartan, and carvedilol. Family History: Positive for CVA. Social History: Denied smoking, denied drinking, denied drugs abuse. Review of Systems: Head and Neck: No red eye. No ear pain. GI: Has decreased intake. : Has polyuria, has dysuria. 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 Respiratory: No shortness of breath. Cardiovascular: No chest pain. Endocrine: No polydipsia. Skin: No rash. Neuro: Has weakness. Musculoskeletal: Generalized fatigue. Physical Examination: Vital Signs: When I saw the patient, blood pressure 152/51, pulse of 70, afebrile. Chest: Clear to auscultation. Heart: S1, S2. Systolic murmur. Abdomen: Soft, nontender. Extremities: No edema. Neurologic: Alert. No focality. Lab: Back in February, creatinine 1.8, GFR 29. Yesterday sodium 128, potassium 5.2, bicarb 18, BUN 1 16, creatinine 2.7, GFR of 18. Today, lab data, sodium 134, potassium 5.3, bicarb 16, BUN 105, creat inine 2.4, GFR 21, calcium 9.5. WBC 8.9, hemoglobin 8.4. Current Medications: The patient on include aspirin, heparin, carvedilol, IV fluid. Assessment And Plan: 1. Acute kidney injury secondary to prerenal, over-diuresis, superimposed with spironolactone, Lasix, and losartan. On recovery. No uremia. No significant acidosis. a. I do not see the need to initiate any renal replacement therapy. b. Agree with hydration for the patient and we will follow up. c. Discontinue all diuresis including spironolactone and Lasix, discontinue losartan and we will follow up. d. Obstructive uropathy has been ruled out. e. I am going to send for CK and uric acid and we will follow up. 2. Hypertension with the presence of acute kidney injury. Hold losartan, hold spironolactone and hol d Lasix and we will start hydration. 3. Congestive heart failure, diastolic, currently the patient on the dry side, hold diuresis. 4. Hyperkalemia secondary to renal failure superimposed with spironolactone, resolved, continue holdi ng spironolactone. 5. Gastroenteritis, as by primary. 6. Acidosis, agree with bicarb. 7. Hyponatremia, depletional. We will change the bicarb drip to be isotonic and we will follow up th e patient. Thank you Dr. Meek for allowing us to participate in the care of your patient. KAREL/ROMAINE Voice ID: [id number] Report ID: [id number]
--- NOTE | 2024-07-25 18:39 | P.PN ---
Subjective Date of Service: 07/25/24 Chief Complaint: Dysuria She states she feels better . She reports suprapubic pain, no dysuria. She denies loss of appetite. No recorded fever. Physical Examination - Vital Signs Temperature: 97.7 F Blood Pressure: 101/58 Pulse: 72 Respirations: 16 Pulse Ox (%): 100 Assessment And Plan - Plan Physical examination General: Alert and oriented x3, NAD, HEENT: Conjunctiva not pale, anicteric sclera Neck: Supple, no elevated JVD Heart: Heart sounds 1 and 2 normal, regular rhythm, normal rate, no pedal edema Lungs: Clear to auscultation bilaterally, adequate breath sounds bilaterally, no rhonchi or crackles. Abdomen: Soft, nondistended, nontender, normal bowel sounds. Extremities: No tenderness, no deformity Skin: Normal skin turgor, no rash, no nodules or ulcers. Neuro: No focal motor deficit. Normal speech. Psychiatry: Normal mood, no agitation. Diagnosis LAUREN Uremia Metabolic acidosis Hyponatremia Hyperkalemia Chronic diastolic heart failure Chronic anemia Plan: Nephrology input appreciated. Hydrate with IV bicarb drip Monitor BMP closely Anticipating metabolic acidosis correction to help improve hyperkalemia. Monitor for volume overload. Monitor renal function. No evidence of UTI. Monitor if continues to follow anemia. Transfuse as needed for hemoglobin less than 7.
[2024-07-26 05:25] LABS: Absolute Eosinophils 0.1 K/uL (0-0.5); Absolute Lymphocytes (CBC) 1.3 K/uL (0.7-4.9); Absolute Monocytes 0.6 K/uL (0.1-1.3); Absolute Neutrophil 3.1 K/uL (1.8-8.0); Basophils % 0.7 % (0-1.3); Eosinophils % 1.8 % (0-4.4); Hematocrit 22.3 % (36.0-45.0); Hemoglobin 7.7 g/dL (12.0-15.0); Lymphocytes % 25.4 % (15.3-44.8); MCH 30.8 pg (27.0-35.0); MCHC 34.6 g/dL (32.0-36.0); MCV 89.3 fL (80-100); MPV 8.7 fL (7.6-11.3); Neutrophils % 61.1 % (41.7-73.7); Platelets 251 thou/uL (152-406); Red Cell Distribution Width 13.7 % (12.1-15.2)
[2024-07-26 05:33] LABS: Albumin 2.9 g/dL (3.4-5.0); Anion Gap 11.5 mEq/L (5.0-15.0); Phosphorus 4.4 mg/dL (2.5-4.9); Potassium 4.5 mEq/L (3.5-5.1); Thyroid Stimulating Hormone 2.53 uIU/mL (0.358-3.740); Uric Acid 10.4 mg/dL (2.6-6.0)
[2024-07-26] MEDS: LORATADINE 10 MG TAB PO SCH (11:34)
[2024-07-26] MEDS: ATORVASTATIN 40 MG TAB PO SCH (21:30)
[2024-07-26 23:08] LABS: UR PROTEIN 129.9 mg/dL (<11.9); Urine Protein/Creatinine Ratio 1.86 ratio (<0.15)
[2024-07-27 03:18] VITALS: BMI 32.3
[2024-07-27 05:50] LABS: Albumin 2.7 g/dL (3.4-5.0); Anion Gap 10.2 mEq/L (5.0-15.0); Phosphorus 3.4 mg/dL (2.5-4.9); Potassium 4.2 mEq/L (3.5-5.1)
--- NOTE | 2024-07-27 06:18 | P.PN ---
Date of Service: 07/26/24 Subjective Sitting in the chair reports continued dysuria no evidence of UTI ROS 10 point ROS as noted above, otherwise negative Physical Exam General: AAO x3, NAD Neck: Supple, no elevated JVD Heart: Heart sounds 1 and 2 normal, regular rhythm, normal rate, no pedal edema Lungs: Clear to auscultation bilaterally, adequate breath sounds bilaterally, no rhonchi or crackles Abdomen: Soft on palpation, normal bowel sounds Extremities: No tenderness, no deformity Skin: Normal skin turgor, no rash, no nodules or ulcers Neuro: No focal motor deficit. Normal speech Psychiatry: Normal mood, no agitation Vitals Reviewed Problem list LAUREN Uremia Metabolic acidosis Hyponatremia Hyperkalemia Chronic diastolic heart failure Chronic anemia Assessment and Plan LAUREN Uremia Metabolic acidosis Hyponatremia- resolved Hyperkalemia-resolved -Nephrology input appreciated -Hydrate with IV bicarb drip -Monitor BMP closely -Monitor for volume overload -Monitor renal function Chronic diastolic heart failure Chronic anemia -Monitor if continues to follow anemia -Transfuse as needed for hemoglobin less than 7 DVT ppx Heparin Full code LOS 2 days
[2024-07-27 09:07] VITALS: O2SAT 97
--- NOTE | 2024-07-27 18:09 | P.DS ---
Admission Date: 07/24/24 Discharge Date: 07/27/24 Disposition: ROUTINE DISCHARGE Discharge Condition: FAIR Reason for Admission: Dysuria Brief History of Present Illness: 64-year-old woman with a past medical history of CHF, hypertension, presented with a complaint of dysuria and feels she has been dehydrated for several days. She states she had a hysterectomy about a year ago due to cancer. She completed 5 rounds of radiation. She was seen by her PCP Dr. Lizarraga who gave her antibiotics. She states she has been through 2 or 3 antibiotics. The only thing that relieves her pain is warm water to the genital area. He has never seen a urologist. 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 She has been taking her diuretics which include furosemide and spironolactone. Blood work done in the ED showed evidence of acute kidney injury. Patient was hospitalized for further management. Hospital Course: Diagnosis Acute kidney injury Hyperkalemia Metabolic acidosis Chronic diastolic heart failure Chronic anemia Patient admitted to the medical floor and hydrated with IV fluid containing bicarb. Metabolic acidosis resolved, hyperkalemia was corrected with IV hy dration, renal function improved. Patient was asymptomatic. She tolerated diet and has been ambulatory. Case discussed with nephrology Dr. Gallego and patient is deemed stable for discharge. Patient is on Lasix, Aldactone, losartan and hydrochlorothiazide which have been discontinued due to LAUREN. She is advised to follow-up with Dr. Gallego within a week for repeat blood work and medication adjustments as needed. Vital Signs/Physical Exam: Temp Pulse Resp BP Pulse Ox 98.1 F 80 16 130/63 98 07/27/24 16:00 07/27/24 16:00 07/27/24 16:00 07/27/24 16:07/27/24 16:00 General: Alert, In no apparent distress, Oriented x3 HEENT: Mucous membr. moist/pink Neck: Supple, JVD not distended Respiratory: Clear to auscultation bilaterally, Normal air movement Cardiovascular: No edema, Regular rate/rhythm, Normal S1 S2 Gastrointestinal: Normal bowel sounds, Soft and benign, Non-distended Musculoskeletal: No swelling, No tenderness Integumentary: No rashes, No cyanosis Neurological: Normal strength at 5/5 x4 extr Laboratory Data at Discharge: WBC 5.00 thou/uL (4.3-10.9) 07/26/24 04:35 Hgb 7.7 g/dL (12.0-15.0) L D 07/26/24 04:35 Hct 22.3 % (36.0-45.0) L 07/26/24 04:35 Plt Count 251 thou/uL (152-406) 07/26/24 04:35 Sodium 139 mEq/L (136-145) 07/27/24 04:38 Potassium 4.2 mEq/L (3.5-5.1) 07/27/24 04:38 BUN 78 mg/dL (7-18) H 07/27/24 04:38 Creatinine 2.11 mg/dL (0.55-1.02) H 07/27/24 04:38 Glucose 210 mg/dL (74-106) H 07/27/24 04:38 Uric Acid 10.4 mg/dL (2.6-6.0) H 07/26/24 04:35 Phosphorus 3.4 mg/dL (2.5-4.9) 07/27/24 04:38 Total Bilirubin 0.4 mg/dL (0.2-1.0) 07/24/24 16:05 AST < 10 U/L (15-37) L 07/24/24 16:05 ALT 18 U/L (13-56) 07/24/24 16:05 Alkaline Phosphatase 149 U/L (45-117) H 07/24/24 16:05 Lipase 49 U/L (13-75) 07/24/24 16:05 Home Medications: Atorvastatin Calcium 40 mg PO DAILY 04/15/21 Brimonidine Tartrate/Timolol [Combigan 0.2%-0.5% Eye Drops] 5 ml EACH EYE BID 04/15/21 Folic Acid 800 mcg PO DAILY 07/24/21 Albuterol Inhaler [Ventolin Inhaler*] 2 puff IH Q6H PRN 30 Days #1 inh 03/22/24 Albuterol Sulfate [Albuterol Sulfate 0.083% Neb Soln] 2.5 mg IH Q4H PRN 30 Days #1 box 03/22/24 Arformoterol Tartrate [Brovana] 15 mcg NEB BIDRESP vial.neb 03/22/24 Aspirin Chewable [Aspirin Chewable*] 81 mg PO DAILY tab.chew 03/22/24 Ipratropium Neb [Atrovent*] 0.5 mg NEB TIDRESP amp 03/22/24 Loratadine [Claritin*] 10 mg PO DAILY tab 03/22/24 Losartan Potassium [Cozaar] 25 mg PO 30 MIN BEFORE HS 30 Days #30 tab 03/22/24 Nebulizer Accessories [[place] Choice Neb Kit-Adult] 1 each MC DAILY 30 Days #1 ea 03/22/24 Nebulizer and Compressor [[place] [facility] Nebulizer] 1 each MC DAILY 30 Days #1 ea 03/22/24 carvediloL [Coreg*] 12.5 mg PO BID 30 Days #60 tab 03/22/24 Diet: AHA Activity: Ad ayala Followup: Clarke Gallego MD [ACTIVE - CAN ADMIT] - 1 Week Sam Lizarraga MD [Primary Care Provider] - 1-2 Weeks Time spent managing pt's care (in minutes): 35
[2024-07-27 20:10] VITALS: BP 166/80
[2024-07-27 21:15] VITALS: TEMP 98.3
--- NOTE | 2024-07-27 23:52 | PN ---
Date of Progress Note: 07/27/2024 Chief Complaint: Acute kidney injury on chronic kidney disease. Subjective: The patient is a 64-year-old female with significant past medical history of COVID infec tion causing pneumonia, congestive heart failure with diastolic dysfunction, hypertension, TIA, chron ic kidney disease. Baseline creatinine level 1.8 and GFR of 29 when lab work was obtained March 11, 2024. The patient came to the hospital complaining of some fatigue, nausea, vomiting due to poor p.o. intake. She was taking diuretics recently for volume control. The patient has history of uppe r respiratory tract infection and UTI. The patient was taking Lasix and spironolactone to control ed june. Review of Systems: Denies chest pain, palpitations. Physical Examination: Lungs: Clear to auscultation bilaterally. Heart: S1, S2. Abdomen: Soft, benign. Extremities: Edema present in both legs. Impression And Plan: 1. Acute on chronic kidney injury associated with fluid overload. The patient will continue diuretic s and low-sodium diet. Renal function is stabilizing, although there is high BUN and creatinine rati o secondary to diuretic effect. 2. Acute kidney injury secondary to prerenal state secondary to losartan and Lasix combination. The patient is not uremic and plan is to evaluate renal function daily. Diuretics were discontinued rome use of acute kidney injury. Continue mild hydration by mouth. Plan was to check CK level and uric a primo to assess possible causes of acute kidney injury. 3. Hypertension in presence of acute kidney injury. Losartan, spironolactone on hold. Lasix was al so stopped. 4. Congestive heart failure and diastolic dysfunction. Hold diuretics. Monitor fluid balance. 5. Hyperkalemia secondary to acute kidney injury. Spironolactone and angiotensin receptor sofiya co mbination medications were stopped. Continue low-potassium diet and reevaluate renal panel. 6. Acidosis. The patient will continue bicarbonate tablet. 7. Hyponatremia, depletional. Avoid hypotonic fluids. EB/MODL Voice ID: [id number] Report ID: [id number]
== END 2024-07-27 22:05 | disposition home or self-care (01) | DRG 683 ==
LOC: ER 12:47 → ERHOLD 19:37 → 2ND 07-25 10:23
PROVIDERS: ADMIT Family Medicine; ATTEND Internal Medicine
DX: N17.9 Acute kidney failure, unspecified (principal); E87.1 Hypo-osmolality and hyponatremia; I50.32 Chronic diastolic (congestive) heart failure; I13.0 Hypertensive heart and chronic kidney disease with heart failure and stage 1 through stage 4 chronic kidney disease, or unspecified chronic kidney disease; E87.21 Acute metabolic acidosis; N18.32 Chronic kidney disease, stage 3b; D63.1 Anemia in chronic kidney disease; E86.0 Dehydration; E87.5 Hyperkalemia; H40.9 Unspecified glaucoma; K52.9 Noninfective gastroenteritis and colitis, unspecified; K59.00 Constipation, unspecified; D35.00 Benign neoplasm of unspecified adrenal gland; E78.00 Pure hypercholesterolemia, unspecified; Z88.5 Allergy status to narcotic agent; Z86.73 Personal history of transient ischemic attack (TIA), and cerebral infarction without residual deficits; Z11.52 Encounter for screening for COVID-19; Z91.011 Allergy to milk products; Z90.710 Acquired absence of both cervix and uterus; Z91.040 Latex allergy status; Z79.82 Long term (current) use of aspirin; Z79.02 Long term (current) use of antithrombotics/antiplatelets; Z79.899 Other long term (current) drug therapy; Z87.891 Personal history of nicotine dependence; Z86.16 Personal history of COVID-19
CPT/HCPCS: 36415; 71045; 74176; 80048; 80053; 80069; 81001; 82550; 82570; 82805; 82947; 83540; 83690; 83880; 83970; 84156; 84443; 84466; 84550; 85025; 87428; 90656; 94640; 94760; 96360; 99285; J1644; J7030; J7644

== ENCOUNTER 2024-10-16 14:18 | Emergency (ER) | payer OTHER ==
[2024-10-16 15:05] LABS: Absolute Basophils 0.1 K/uL (0-0.5); Absolute Eosinophils 0.2 K/uL (0-0.5); Absolute Lymphocytes (CBC) 0.8 K/uL (0.7-4.9); Absolute Monocytes 0.5 K/uL (0.1-1.3); Absolute Neutrophil 4.6 K/uL (1.8-8.0); Basophils % 1.7 % (0-1.3); Eosinophils % 3.4 % (0-4.4); Hematocrit 19.5 % (36.0-45.0); Hemoglobin 6.6 g/dL (12.0-15.0); Lymphocytes % 13.1 % (15.3-44.8); MCH 30.5 pg (27.0-35.0); MCHC 33.8 g/dL (32.0-36.0); MCV 90.2 fL (80-100); Monocytes % 7.8 % (3.3-12.3); Platelets 399 thou/uL (152-406); RBC Red Blood Cell Count 2.16 M/uL (3.86-4.86); Red Cell Distribution Width 16.1 % (12.1-15.2)
[2024-10-16 15:23] LABS: Anion Gap 12.6 mEq/L (5.0-15.0); Potassium 4.6 mEq/L (3.5-5.1)
[2024-10-16] MEDS ORDERED: ACETAMINOPHEN 325 MG TABLET ONE (15:50)
[2024-10-16] MEDS ORDERED: HYDROCORTISONE SUC 100 MG INJ ONE (15:50)
[2024-10-16] MEDS ORDERED: NA CHLORIDE 0.9% 250 ML ONE ×2 (15:51→20:43)
[2024-10-16] MEDS ORDERED: DIPHENHYDRAMINE 50 MG/ML VIAL ONE ×2 (15:51→21:52)
[2024-10-16] MEDS ORDERED: WATER FOR INJ,STERILE 10 ML ONE (15:59)
--- NOTE | 2024-10-16 16:19 | ER ---
Nurse's Notes [facility] Name: Mariluz Smith Age: 64 yrs Sex: Female : 1960 Arrival Date: 10/16/2024 Time: 14:18 Bed 6 Private MD: Diagnosis: Anemia, unspecified;Vaginal bleeding secondary to malignancy Presentation: 10/16 14:33 Chief complaint: Patient states: Heavy vaginal bleeding started at 1330 today. Pale, ll1 weak, lethargic. Happened one day last week. Had a PET scan here to evaluate return of "vaginal cancer". Coronavirus screen: Client denies travel out of the [place] in the last 14 days. At this time, the client does not indicate any symptoms associated with coronavirus-19. Ebola Screen: Patient denies travel to an Ebola-affected area in the 21 days before illness onset. Initial Sepsis Screen: Does the patient meet any 2 criteria? No. Patient's initial sepsis screen is negative. Does the patient have a suspected source of infection? No. Patient's initial sepsis screen is negative. Risk Assessment: Do you want to hurt yourself or someone else? Patient reports no desire to harm self or others. Onset of symptoms was October 16, 2024. 14:33 Method Of Arrival: Wheelchair ll1 14:33 Acuity: RACHANA 2 ll1 Triage Assessment: 14:35 General: Appears distressed, uncomfortable, Behavior is calm, cooperative, appropriate ll1 for age. Pain: Complains of pain in pelvis Pain currently is 10 out of 10 on a pain scale. Quality of pain is described as aching, crampy. GI: Reports lower abdominal pain, cramping. : Reports cramping, pain in bilateral in suprapubic area in lower back vaginal bleeding that is with clots, moderate flow. Historical: - Allergies: 14:32 Codeine; ll1 14:32 Milk; ll1 - PMHx: 14:32 Broken Neck; Glaucoma; Hypercholesterolemia; Hypertensive disorder; TIA; ll1 - PSHx: 14:32 Vaginal CA (TIA); ll1 - Immunization history:: Adult Immunizations up to date. - Infectious Disease History:: Denies. - Social history:: Smoking status: Patient/guardian denies using tobacco, the patient reports quitting approximately 35 years ago. Screenin:17 [facility] ED Fall Risk Assessment (Adult) History of falling in the last 3 months, bm8 including since admission No falls in past 3 months (0 pts) Confusion or Disorientation No (0 pts) Intoxicated or Sedated No (0 pts) Impaired Gait Yes (1 pt) Mobility Assist Device Used No (0 pt) Altered Elimination No (0 pt) Score/Fall Risk Level 0 - 2 = Low Risk Oriented to surroundings, Maintained a safe environment, Educated pt \\T\\ family on fall prevention, incl call for assistance when getting out of bed, Provided non-skid footwear, Hourly rounding (assess needs \\T\\ fall precautionary measures) done, Used ambulatory aids as needed (educated on \\T\\ assisted with), Used gait belt as appropriate. Abuse screen: Denies threats or abuse. Nutritional screening: No deficits noted. Tuberculosis screening: No symptoms or risk factors identified. Assessment: 16:24 Reassessment: Written order to premedicate pt for blood transfusion, see paper order. jl7 18:14 Reassessment: Pt refusing Hanson catheter, unable to tolerate, ERD notified. jl7 19:17 General: Appears in no apparent distress. comfortable, Behavior is calm, cooperative, bm8 appropriate for age. Pain: Complains of pain in pelvis Pain currently is 4 out of 10 on a pain scale. Neuro: No deficits noted. Level of Consciousness is awake, alert, obeys commands, Oriented to person, place, time, situation, Appropriate for age Nuclear Engineering Technician are equal bilaterally Moves all extremities. Full function Gait is unsteady, Speech is normal, Facial symmetry appears normal, Pupils are PERRLA, Pupil Size: 3 mm. Cardiovascular: Denies chest pain, Heart tones S1 S2 present Capillary refill is > 3 seconds in bilateral fingers Patient's skin is warm and dry. Respiratory: Airway is patent Respiratory effort is even, unlabored. GI: No signs and/or symptoms were reported involving the gastrointestinal system. : pt has bright red vaginal bleeding, packing in place per MD orders. EENT: No signs and/or symptoms were reported regarding the EENT system. Derm: Skin is intact, Skin is dry, Skin is pale, Skin temperature is warm. Musculoskeletal: No signs and/or symptoms reported regarding the musculoskeletal system. 19:17 Reassessment: 1 st unit of blood currently transfusing according to paper charting it bm8 was started at 1835. 20:04 Reassessment: Patient appears in no apparent distress at this time. Patient and/or bm8 family updated on plan of care and expected duration. Pain level reassessed. Patient is alert, oriented x 3, equal unlabored respirations, skin warm/dry/pink. Patient states feeling better. 20:37 Reassessment: Patient appears in no apparent distress at this time. Patient and/or bm8 family updated on plan of care and expected duration. Pain level reassessed. Patient is alert, oriented x 3, equal unlabored respirations, skin warm/dry/pink. 1st unit of PRBC complete Patient denies pain at this time. Patient states feeling better. 21:20 Reassessment: 2nd unit of PRBC started. bm8 22:49 Reassessment: Patient appears in no apparent distress at this time. Patient and/or bm8 family updated on plan of care and expected duration. Pain level reassessed. Patient is alert, oriented x 3, equal unlabored respirations, skin warm/dry/pink. Patient denies pain at this time. 23:20 Reassessment: Patient appears in no apparent distress at this time. Patient and/or bm8 family updated on plan of care and expected duration. Pain level reassessed. Patient is alert, oriented x 3, equal unlabored respirations, skin warm/dry/pink. 2nd unit of PRBC complete Patient states feeling better. Patient states symptoms have improved. 23:45 Reassessment: pt is now resting with eyes closed breathing is even unlabored with bm8 symmetrical rise and fall of chest. pt still awaiting room assignment at [facility]. 10/17 01:01 Reassessment: Patient appears in no apparent distress at this time. No changes from bm8 previously documented assessment. 03:00 Reassessment: Patient appears in no apparent distress at this time. No changes from bm8 previously documented assessment. Patient and/or family updated on plan of care and expected duration. Pain level reassessed. 04:05 Reassessment: No changes from previously documented assessment. Patient and/or family rg5 updated on plan of care and expected duration. Pain level reassessed. Patient is alert, oriented x 3, equal unlabored respirations, skin warm/dry/pink. 05:07 Reassessment: No changes from previously documented assessment. Patient and/or family rg5 updated on plan of care and expected duration. Pain level reassessed. Patient is alert, oriented x 3, equal unlabored respirations, skin warm/dry/pink. General: Appears in no apparent distress. comfortable, Behavior is calm, cooperative, appropriate for age, quiet. 06:30 Reassessment: No changes from previously documented assessment. Patient and/or family rg5 updated on plan of care and expected duration. Pain level reassessed. Patient is alert, oriented x 3, equal unlabored respirations, skin warm/dry/pink. 07:50 Reassessment: Patient appears in no apparent distress at this time. Patient and/or ph family updated on plan of care and expected duration. Pain level reassessed. Patient is alert, oriented x 3, equal unlabored respirations, skin warm/dry/pink. 10:00 Reassessment: Patient appears in no apparent distress at this time. Patient and/or ph family updated on plan of care and expected duration. Pain level reassessed. Patient is alert, oriented x 3, equal unlabored respirations, skin warm/dry/pink. 15:01 Reassessment: TRANSFER REMAINS ON WAIT LIST. bp 16:46 Reassessment: REPORT TO [facility] AT [facility] 2026. bp Vital Signs: 10/16 14:33 BP 140 / 66; Pulse 87; Resp 28; Temp 98.1; Pulse Ox 99% on R/A; Weight 72.57 kg; Height ll1 5 ft. 2 in. ; Pain 10/10; 17:11 BP 138 / 56; Pulse 84; Resp 15; Pulse Ox 100% ; jl7 18:07 BP 129 / 94; Pulse 98; Resp 15; Pulse Ox 100% ; jl7 19:17 BP 100 / 58; Pulse 75; Resp 18; Temp 98.2; Pulse Ox 93% ; Pain 4/10; bm8 20:04 BP 147 / 76; Pulse 85; Resp 25; Temp 97.7; Pulse Ox 100% ; Pain 3/10; bm8 20:37 BP 152 / 59; Pulse 83; Resp 25; Temp 97.9; Pulse Ox 100% on R/A; Pain 0/10; bm8 21:20 BP 147 / 56; Pulse 82; Resp 25; Temp 98.1; Pulse Ox 100% ; Pain 0/10; bm8 22:49 BP 137 / 57; Pulse 91; Resp 18; Temp 97.7; Pulse Ox 100% ; Pain 0/10; bm8 23:20 BP 159 / 67; Pulse 90; Resp 24; Temp 98.1; Pulse Ox 100% ; Pain 0/10; bm8 10/17 01:01 BP 115 / 56; Pulse 82; Resp 19; Temp 98.1; Pulse Ox 100% ; Pain 0/10; bm8 03:00 BP 146 / 77; Pulse 74; Resp 19; Temp 98.1; Pulse Ox 98% ; Pain 0/10; bm8 04:06 BP 125 / 82; Pulse 76; Resp 18; Pulse Ox 99% ; rg5 05:08 BP 135 / 80; Pulse 74; Resp 17; Temp 98; Pulse Ox 96% on R/A; Pain 0/10; bl1 06:30 BP 147 / 60; Pulse 72; Resp 17; Pulse Ox 96% on R/A; rg5 07:50 BP 138 / 72; Pulse 86; Resp 18; Pulse Ox 99% on R/A; ph 10:00 BP 152 / 83; Pulse 82; Resp 18; Pulse Ox 100% on R/A; ph 15:01 BP 148 / 71; Pulse 77; Resp 16; Pulse Ox 100% ; bp 10/16 14:33 Body Mass Index 29.26 (72.57 kg, 157.48 cm) ll1 10/16 14:33 Pain Scale: Adult ll1 19:17 Pain Scale: Adult bm8 20:04 Pain Scale: Adult bm8 20:37 Pain Scale: Adult bm8 21:20 Pain Scale: Adult bm8 22:49 Pain Scale: Adult bm8 23:20 Pain Scale: Adult bm8 10/17 01:01 Pain Scale: Adult bm8 03:00 Pain Scale: Adult bm8 05:08 Pain Scale: Adult bl1 Adonis Coma Score: 10/16 19:17 Eye Response: spontaneous(4). Motor Response: obeys commands(6). Verbal Response: bm8 oriented(5). Total: 15. 20:04 Eye Response: spontaneous(4). Motor Response: obeys commands(6). Verbal Response: bm8 oriented(5). Total: 15. 20:37 Eye Response: spontaneous(4). Motor Response: obeys commands(6). Verbal Response: bm8 oriented(5). Total: 15. 21:20 Eye Response: spontaneous(4). Motor Response: obeys commands(6). Verbal Response: bm8 oriented(5). Total: 15. 22:49 Eye Response: spontaneous(4). Motor Response: obeys commands(6). Verbal Response: bm8 oriented(5). Total: 15. 23:20 Eye Response: spontaneous(4). Motor Response: obeys commands(6). Verbal Response: bm8 oriented(5). Total: 15. 10/17 01:01 Eye Response: spontaneous(4). Motor Response: obeys commands(6). Verbal Response: bm8 oriented(5). Total: 15. ED Course: 10/16 14:23 Patient arrived in ED. cj3 14:25 Ck Magaña MD is Attending Physician. rt 14:26 Arm band placed on Patient placed in an exam room, on a stretcher. ll1 14:30 Attending Physician role handed off by Ck Magaña MD ms3 14:30 Aba Oscar DO is Attending Physician. ms3 14:35 Triage completed. ll1 14:42 Jose Westfall RN is Primary Nurse. jl7 15:00 Initial lab(s) drawn, by me, sent to lab. Inserted saline lock: 20 gauge in right jl7 antecubital area, using aseptic technique. Blood collected. Flushed with 10 mL NS. 15:20 initiated transfer to [facility]. bd 16:00 Inserted saline lock: 20 gauge in left hand, using aseptic technique. Flushed with 10 jl7 mL NS. 17:30 Hanson cath inserted, using sterile technique, 16 Fr., by me, balloon inflated, to jl7 gravity drainage, Patient tolerated poorly. Hanson cath removed intact, balloon deflated. 17:45 Assist provider with pelvic exam: Performed by Aba Oscar DO Vaginal packing inserted. jl7 Patient tolerated poorly. 18:00 Hanson cath inserted, using sterile technique, 14 Fr., by me, balloon inflated, to jl7 gravity drainage, Patient tolerated poorly. Hanson cath removed intact, balloon deflated, Pt unable to tolerate Hanson, removed per pt request. 19:08 Primary Nurse role handed off by Jose Westfall RN jl7 19:17 Benitez Franklin, RN is Primary Nurse. bm8 19:17 Patient has correct armband on for positive identification. Placed in gown. Bed in low bm8 position. Call light in reach. Side rails up X 1. Adult w/ patient. Provided Education on: Blood Transfusion, need for tranfer. Client placed on continuous cardiac and pulse oximetry monitoring. NIBP monitoring applied. growth hacker on. Pulse ox on. NIBP on. Door closed. Noise minimized. Warm blanket given. Pillow given. Verbal reassurance given. Head of bed elevated. 19:17 Report received from STEPHIE Garcia, bedside blood check performed prior to hand off. bm8 21:[address] [facility] for update on transfer, no answer. Will call back. rv1 22:34 Nicki Johnsno at [facility] said that the patient is still on the wait rv1 list for a bed. She is number 2 in line for a bed so it could be well into the morning (10/17) before she gets a bed. 10/17 07:57 contacted [facility] for a update on transfer,spoke with Keyanna, they are still pending a bd bed. 13:13 spoke with Janeth at [facility], gave new vital signs, still no beds,pt bd still on waiting list. 16:27 pt accepted in transfer to [facility] rm [address] Adelaide Hitchcock admin approval given by deepali Schmid RN. 16:46 Patient transferred, IV remains in place. bp Administered Medications: 10/16 16:50 Drug: Acetaminophen PO 650 mg PO once Route: PO; jl7 19:32 Follow up: Response: No adverse reaction bm8 17:05 Drug: diphenhydrAMINE IVP 12.5 mg IVP once Route: IVP; Site: right antecubital; jl7 19:32 Follow up: Response: No adverse reaction bm8 17:10 Drug: Solu-CORTEF IVP 50 mg IVP once Route: IVP; Site: right antecubital; jl7 19:32 Follow up: Response: No adverse reaction bm8 17:50 Drug: Ativan IVP 0.5 mg IVP once Route: IVP; Site: right antecubital; jl7 19:32 Follow up: Response: No adverse reaction bm8 22:00 Drug: diphenhydrAMINE IVP 12.5 mg IVP once Route: IVP; Site: right antecubital; bm8 23:40 Follow up: Response: No adverse reaction bm8 22:01 Drug: Ativan IVP 1 mg IVP once Route: IVP; Site: right antecubital; bm8 23:40 Follow up: Response: No adverse reaction bm8 23:40 Drug: morphine IVP or IV 4 mg IVP once over 4 mins Route: IVP; Infused Over: 4 mins; bm8 Site: right antecubital; 23:52 Follow up: Response: No adverse reaction bm8 23:40 Drug: Ondansetron IVP 4 mg IVP once; over 2 minutes Route: IVP; Site: right antecubital;bm8 23:52 Follow up: Response: No adverse reaction bm8 Medication: 19:17 VIS not applicable for this client. bm8 23:20 Blood products: PRBCs X 2 units given. See transfusion record. bm8 Outcome: 16:18 ER care complete, transfer ordered by . ms3 10/17 16:46 Transferred by ground EMS to [facility] Condition: stable Instructed on the need for transfer, 17:48 Patient left the ED. ph Signatures: Debra Yeager Patricia, RN Jose Truong ph RN RN jl7 Yusuf Baker RN RN bp Lewis, Lynsay RN RN ll1 Aba Oscar DO DO ms3 Ck Magaña MD MD rt Pauly Serrano rv1 Benitez Franklin RN RN bm8 Carlos Manrique RN RN rg5 Tiara Kyle 3 Guera Sierra RN RN bl1 Corrections: (The following items were deleted from the chart) 05:11 05:08 BP 35 / 80; Pulse 74bpm; Resp 17bpm; Pulse Ox 96% RA; Temp 98F; Pain 0/10, Adult; bl1 rg5
--- NOTE | 2024-10-16 16:19 | EDPHYS ---
Physician Documentation [facility] Name: Mariluz Smith Age: 64 yrs Sex: Female : 1960 Arrival Date: 10/16/2024 Time: 14:18 Bed 6 Private MD: ED Physician Aba Oscar HPI: 10/16 14:42 This 64 yrs old Female presents to ER via Wheelchair with complaints of ms3 Vaginal Bleeding, Abdominal Pain, Vaginal Wound. 14:42 64-year-old female with past medical history of glaucoma, hypercholesterolemia, ms3 hypertension, TIA, vaginal cancer presents to the emergency department for vaginal bleeding that began at approximately 1:18 PM. Patient states she is passing clots and tissue. Patient states she has been having pain for the last 3 to 4 months associated with bleeding. Patient states the bleeding is worse today. Patient states she had a PET scan performed last week and is awaiting surgery by Dr. Monzon. Historical: - Allergies: 14:32 Codeine; ll1 14:32 Milk; ll1 - PMHx: 14:32 Broken Neck; Glaucoma; Hypercholesterolemia; Hypertensive disorder; TIA; ll1 - PSHx: 14:32 Vaginal CA (TIA); ll1 - Immunization history:: Adult Immunizations up to date. - Infectious Disease History:: Denies. - Social history:: Smoking status: Patient/guardian denies using tobacco, the patient reports quitting approximately 35 years ago. ROS: 14:42 Constitutional: Negative for fever, and chills. Cardiovascular: Negative for chest ms3 pain, and palpitations. Respiratory: Negative for shortness of breath, cough, wheezing, and pleuritic chest pain, Abdomen/GI: Negative for abdominal pain, nausea, vomiting, diarrhea, and constipation, 14:42 : Positive for vaginal bleeding, Exam: 14:42 Constitutional: This is a well developed, well nourished patient who is awake, alert, ms3 and in no acute distress. Cardiovascular: Regular rate and rhythm with a normal S1 and S2. No gallops, murmurs, or rubs. Normal PMI, no JVD. No pulse deficits. Respiratory: Lungs have equal breath sounds bilaterally, clear to auscultation and percussion. No rales, rhonchi or wheezes noted. No increased work of breathing, no retractions or nasal flaring. Abdomen/GI: Soft, non-tender, with normal bowel sounds. No distension or tympany. No guarding or rebound. No evidence of tenderness throughout. Skin: Warm, dry with normal turgor. Normal color with no rashes, no lesions, and no evidence of cellulitis. 15:12 : Pelvic Exam: Speculum exam: severe bleeding, blood clots in vaginal vault, ms3 Vital Signs: 14:33 BP 140 / 66; Pulse 87; Resp 28; Temp 98.1; Pulse Ox 99% on R/A; Weight 72.57 kg; Height ll1 5 ft. 2 in. ; Pain 10/10; 17:11 BP 138 / 56; Pulse 84; Resp 15; Pulse Ox 100% ; jl7 18:07 BP 129 / 94; Pulse 98; Resp 15; Pulse Ox 100% ; jl7 19:17 BP 100 / 58; Pulse 75; Resp 18; Temp 98.2; Pulse Ox 93% ; Pain 4/10; bm8 20:04 BP 147 / 76; Pulse 85; Resp 25; Temp 97.7; Pulse Ox 100% ; Pain 3/10; bm8 20:37 BP 152 / 59; Pulse 83; Resp 25; Temp 97.9; Pulse Ox 100% on R/A; Pain 0/10; bm8 21:20 BP 147 / 56; Pulse 82; Resp 25; Temp 98.1; Pulse Ox 100% ; Pain 0/10; bm8 22:49 BP 137 / 57; Pulse 91; Resp 18; Temp 97.7; Pulse Ox 100% ; Pain 0/10; bm8 23:20 BP 159 / 67; Pulse 90; Resp 24; Temp 98.1; Pulse Ox 100% ; Pain 0/10; bm8 10/17 01:01 BP 115 / 56; Pulse 82; Resp 19; Temp 98.1; Pulse Ox 100% ; Pain 0/10; bm8 03:00 BP 146 / 77; Pulse 74; Resp 19; Temp 98.1; Pulse Ox 98% ; Pain 0/10; bm8 04:06 BP 125 / 82; Pulse 76; Resp 18; Pulse Ox 99% ; rg5 05:08 BP 135 / 80; Pulse 74; Resp 17; Temp 98; Pulse Ox 96% on R/A; Pain 0/10; bl1 06:30 BP 147 / 60; Pulse 72; Resp 17; Pulse Ox 96% on R/A; rg5 07:50 BP 138 / 72; Pulse 86; Resp 18; Pulse Ox 99% on R/A; ph 10:00 BP 152 / 83; Pulse 82; Resp 18; Pulse Ox 100% on R/A; ph 15:01 BP 148 / 71; Pulse 77; Resp 16; Pulse Ox 100% ; bp 10/16 14:33 Body Mass Index 29.26 (72.57 kg, 157.48 cm) ll1 10/16 14:33 Pain Scale: Adult ll1 19:17 Pain Scale: Adult bm8 20:04 Pain Scale: Adult bm8 20:37 Pain Scale: Adult bm8 21:20 Pain Scale: Adult bm8 22:49 Pain Scale: Adult bm8 23:20 Pain Scale: Adult bm8 10/17 01:01 Pain Scale: Adult bm8 03:00 Pain Scale: Adult bm8 05:08 Pain Scale: Adult bl1 Adonis Coma Score: 10/16 19:17 Eye Response: spontaneous(4). Motor Response: obeys commands(6). Verbal Response: bm8 oriented(5). Total: 15. 20:04 Eye Response: spontaneous(4). Motor Response: obeys commands(6). Verbal Response: bm8 oriented(5). Total: 15. 20:37 Eye Response: spontaneous(4). Motor Response: obeys commands(6). Verbal Response: bm8 oriented(5). Total: 15. 21:20 Eye Response: spontaneous(4). Motor Response: obeys commands(6). Verbal Response: bm8 oriented(5). Total: 15. 22:49 Eye Response: spontaneous(4). Motor Response: obeys commands(6). Verbal Response: bm8 oriented(5). Total: 15. 23:20 Eye Response: spontaneous(4). Motor Response: obeys commands(6). Verbal Response: bm8 oriented(5). Total: 15. 10/17 01:01 Eye Response: spontaneous(4). Motor Response: obeys commands(6). Verbal Response: bm8 oriented(5). Total: 15. MDM: 10/16 14:31 Medical Screening Exam initiated ms3 14:42 Differential diagnosis: malignancy, cervical cancer Anemia. ms3 15:34 ED course: Transfer to [facility] was initiated. Hgb 6.6. With active bleeding and low hgb ms3 will transfuse patient 2 units prbcs.. 17:23 ED course: Discussed case with Dr Green at [facility] and she agree with transferring the ms3 patient. Would like vagina packed and downing placed. Patient will need to be admitted to the Medicine team. 17:29 Data reviewed: vital signs, nurses notes, lab test result(s), and as a result, I will ms3 transfer patient. Consideration of Admission/Observation Patient transferred to higher level of care. Management of patient was discussed with the following: Geotechnical Engineering Technician: Dr Green. I considered the following discharge prescriptions or medication management in the emergency department Medications were administered in the Emergency Department. See MAR. Counseling: I had a detailed discussion with the patient and/or guardian regarding the historical points, exam findings, and any diagnostic results supporting the discharge/admit diagnosis, lab results, the need to transfer to another facility, for higher level of care, [facility] does not immediately have the required specialist. 17:41 Management of patient was discussed with the following: Hospitalist: Dr Hitchcock. ms3 18:04 ED course: Downing catheter placed by RN, Vaginal packing placed by me. az3 10/16 14:30 Order name: CBC with Diff; Complete Time: 15:25 az3 10/16 14:40 Order name: BMP; Complete Time: 15:25 az3 10/16 15:26 Order name: Type And Screen az3 10/16 15:31 Order name: Bb Add On bd 10/16 17:35 Order name: Packed RBCs (Additional Unit) [facility] 10/16 17:44 Order name: ABO/RH no charge; Complete Time: 18:04 EDMA 10/17 04:37 Order name: CBC w/o diff rv1 Administered Medications: 16:50 Drug: Acetaminophen PO 650 mg PO once Route: PO; jl7 19:32 Follow up: Response: No adverse reaction bm8 17:05 Drug: diphenhydrAMINE IVP 12.5 mg IVP once Route: IVP; Site: right antecubital; jl7 19:32 Follow up: Response: No adverse reaction bm8 17:10 Drug: Solu-CORTEF IVP 50 mg IVP once Route: IVP; Site: right antecubital; jl7 19:32 Follow up: Response: No adverse reaction bm8 17:50 Drug: Ativan IVP 0.5 mg IVP once Route: IVP; Site: right antecubital; jl7 19:32 Follow up: Response: No adverse reaction bm8 22:00 Drug: diphenhydrAMINE IVP 12.5 mg IVP once Route: IVP; Site: right antecubital; bm8 23:40 Follow up: Response: No adverse reaction bm8 22:01 Drug: Ativan IVP 1 mg IVP once Route: IVP; Site: right antecubital; bm8 23:40 Follow up: Response: No adverse reaction bm8 23:40 Drug: morphine IVP or IV 4 mg IVP once over 4 mins Route: IVP; Infused Over: 4 mins; bm8 Site: right antecubital; 23:52 Follow up: Response: No adverse reaction bm8 23:40 Drug: Ondansetron IVP 4 mg IVP once; over 2 minutes Route: IVP; Site: right antecubital;bm8 23:52 Follow up: Response: No adverse reaction bm8 Disposition Summary: 10/16/24 16:18 Transfer Ordered Notes: Transfer Location: [facility] ms3 Reason: Higher level of care ms3 Condition: Stable ms3 Problem: new ms3 Symptoms: are unchanged ms3 Accepting Physician: Dr Hitchcock(10/17/24 17:48) ph Diagnosis - Anemia, unspecified ms3 - Vaginal bleeding secondary to malignancy ms3 Forms: - Medication Reconciliation Form ms3 - SBAR form ms3 Critical care time excluding procedures: 17:30 Critical care time: Bedside Care: 30 minutes, Consultation: 5 minutes, Family ms3 Intervention: 5 minutes. Total time: 40 minutes Signatures: Dispatcher [employer] Kitty Boston, RN Jose Truong ph RN RN celina7 Angela Siegel, RN RN ll1 Aba Oscar, DO ms3 Ck Magaña MD MD rt Benitez Franklin, RN RN bm8 Corrections: (The following items were deleted from the chart) 14:40 14:40 BASIC METABOLIC PANEL+C.LAB.BRZ ordered. EDMS EDMS 17:42 16:18 Dr coombs ms3 10/17 04:37 04:37 CBC without Diff+H.LAB.BRZ ordered. EDMS EDMS 17:48 10/16 17:42 Dr Hitchcock ms3 ph
[2024-10-16] MEDS ORDERED: LIDOCAINE VISCOUS 2% 10ML ORAL SOLN ONE (17:42)
[2024-10-16] MEDS ORDERED: LORazepam 2 MG/ML VIAL ONE ×2 (17:46→21:52)
[2024-10-16] MEDS ORDERED: ONDANSETRON 4 MG/2 ML VIAL ONE (23:13)
[2024-10-16] MEDS ORDERED: MORPHINE 4 MG/ML SYR ONE (23:13)
[2024-10-17 04:58] LABS: Hematocrit 26.9 % (36.0-45.0); Hemoglobin 9.5 g/dL (12.0-15.0); MCH 30.9 pg (27.0-35.0); MCHC 35.2 g/dL (32.0-36.0); MCV 87.8 fL (80-100); MPV 7.9 fL (7.6-11.3); Platelets 306 thou/uL (152-406); RBC Red Blood Cell Count 3.06 M/uL (3.86-4.86); Red Cell Distribution Width 15.7 % (12.1-15.2)
[2024-10-17] MEDS ORDERED: carvediloL 6.25 MG TAB ONE (09:56)
[2024-10-17 19:31] VITALS: TEMP 98
[2024-10-17 19:36] VITALS: O2SAT 100
[2024-10-17 19:37] VITALS: BP 148/71
== END 2024-10-17 17:48 | disposition short-term general hospital (02) ==
LOC: ER 14:18
PROC: 30233N1 Transfusion of Nonautologous Red Blood Cells into Peripheral Vein, Percutaneous Approach (ICD-10-PCS; principal; 2024-10-17)
DX: D64.9 Anemia, unspecified (principal); C52 Malignant neoplasm of vagina
CPT/HCPCS: 85025; 80048; 36415; 86900; 86850; 86901; 86920 ×2; 85027; 36430; J1200 ×2; J1720; J2405; P9016 ×2; J7050 ×2